=== PATIENT | female | born 1945 | race Caucasian/White ===

== ENCOUNTER 2020-07-23 12:52 | Outpatient (REF) | payer MEDICARE, SELFPAY ==
--- NOTE | 2020-07-23 | PFT_ITS ---
Forced vital capacity; FEV1, USH33-79, and MVV are all normal. Post bronchodilator therapy, there is no significant change. Total lung capacity and residual volume normal. Diffusion capacity normal. CONCLUSION: Normal pulmonary function test. MD ELY Ybarra/MODL / [id number]
== END 2020-07-23 12:53 | disposition home or self-care (01) ==
LOC: HO.RESP 12:52
PROVIDERS: PCP Internal Medicine; Visit Provider Hospitalist
DX: J45.909 Unspecified asthma, uncomplicated (principal)
CPT/HCPCS: 94060; 94727; 94729

== ENCOUNTER → 2021-06-26 14:09 | Outpatient (BNVA) | payer MEDICARE, SELFPAY | PROVIDERS: PCP Internal Medicine; Visit Provider Hospitalist | DX: J45.909 Unspecified asthma, uncomplicated (principal); J98.11 Atelectasis | CPT/HCPCS: 99212 ==

== ENCOUNTER → 2022-06-26 13:56 | Outpatient (BNVA) | payer MEDICARE, SELFPAY | PROVIDERS: PCP Internal Medicine; Visit Provider Hospitalist | DX: J45.909 Unspecified asthma, uncomplicated (principal); J98.11 Atelectasis | CPT/HCPCS: 99212 ==

== ENCOUNTER 2023-06-29 13:54 | Outpatient (AMB) | payer MEDICARE, SELFPAY ==
[2023-06-29 14:16] VITALS: BP 132/76; PULSE 92; O2SAT 97; BMI 26.9
--- NOTE | 2023-06-29 14:16 | A.OFFVIS_ITS ---
Intake Vital Signs 06/29/23 14:16 Height 5 ft 3 in Weight 152 lb BMI 26.9 BP 132/76 Blood Pressure Location Lt brachial Position Sitting Pulse 92 Pulse Source Pulse Oximeter Pulse Oximetry (%) 97 Oxygen Delivery Method Room Air Intake Visit Reasons: asthma Spring Inspector Required: No Allergies shellfish derived Allergy (Severe, Verified 06/29/23 14:19) Hives/Itching amoxicillin Allergy (Severe, Uncoded 06/29/23 14:19) Hives/Itching Percocet Allergy (Severe, Uncoded 06/29/23 14:19) Hives HPI HPI Comments History of Present Illness Details The patient is a 78-year-old woman with known history of allergic rhinitis, asthma. Overall she has been doing very well. Denies any significant shortness of breath. She continues use of Flovent. She does use 1 puff twice a day in appears to be effective. She has not had to use her rescue inhaler. In addition to that she does continue to use the singular 10 mg at nighttime. Denies any adverse effects from that. Unfortunately, she has been reluctant to get vaccinated for COVID-19. I did encourage her to do so specially with delta variant. I also recommended if she did come back positive at some point she can always call the office so we can set her up for monoclonal antibodies. But her best bet is to get vaccinated to avoid it altogether or decrease the severity of it. The patient will think about it for now. In regards of her PFTs she appears to have a reversible obstruction consistent with the asthma. In addition to that her last chest x-ray demonstrates some minimal atelectasis. Clinically she is doing well will hold off on any imaging studies. but if the patient develops any respiratory symptoms she is to call so we can have her undergo a chest x-ray. Otherwise will do 1 next year. 06/26/2022 the patient is here for a pulmonary follow-up visit. she continues to do well. She did tolerate going down to the 1 puff of the Flovent. Hoarseness got better. She is also using her allergy medicine. She denies any recent exacerbations or needing prednisone. She did not undergo her chest x- ray. Will plan to have her get an x-ray prior to the next visit. However, if she develops any worsening symptoms she is to get her chest x-ray earlier. Otherwise patient is without any other complaints. 06/29/2023 the patient is here for a pulmonary follow-up visit. The patient overall has been doing well for the last year. She continues on the Flovent inhaler. She did have 1 episode sometime in the winter where she was exposed to sick contacts and that up with a URI. She did increase her Flovent to the maximum dose and she did not need any prednisone or antibiotics. The patient improved in after that went back to her baseline. She will undergo a chest x- ray today. In addition to that on examination she was noted to be tachycardic. She does state that she has been tachycardic most of her life. Therefore we did request an EKG. It does demonstrate a sinus tachycardia with the rate of 110 beats per minute at rest. In addition to that she does have some conduction abnormalities. The patient may want to consider a cardiology referral further discussions with her primary care doctor. Otherwise respiratory exam is completely normal. [facility] Medical History (Updated 06/29/23 @ 23:17 by Viktor Moreno MD) Tachycardia Atelectasis Chronic allergic rhinitis Asthma Social History (Updated 06/29/23 @ 14:20 by MANISH Sargent) Patient Tobacco Use Status: Never used Tobacco Review of Systems Const Denies night sweats ENT Denies change in voice, Denies lip swelling, Denies mouth pain, Reports nasal congestion, Reports nasal discharge and Denies tongue swelling Card Denies chest pain and Reports palpitations Resp Reports cough GI Denies abdominal pain Musc Denies no additional complaints Neuro Denies Neuro-related abnormal movements Psych Denies no additional complaints Endo Reports palpitations Vadim/Lymph Denies easy bleeding and Denies lymphadenopathy Aller/Immun Denies lip swelling and Denies tongue swelling Physical Exam Vital Signs: Last Vital Signs Pulse 92 06/29/23 14:16 BP 132/76 06/29/23 14:16 Pulse Ox 97 06/29/23 14:16 Oxygen Delivery Method Room Air 06/29/23 14:16 BMI result Body Mass Index 26.9 Const General: alert Neck Neck: Yes normal visual inspection, Yes full ROM and Yes no lymphadenopathy Chest Chest palpation & inspection: normal inspection of the chest Resp Auscultation: clear to auscultation bilaterally, no rhonchi and no wheezes Cardio Rate: regular rate Rhythm: regular rhythm Heart sounds: S1 normal heart sound present and S2 normal heart sound present GI Palpation (GI): Soft to palpation and nontender Auscultation: normal bowel sounds Skin General skin exam: rashes and/or lesions noted Assessment & Plan Assessment & Plan (1) Asthma: Code(s): J45.909 - Unspecified asthma, uncomplicated Qualifiers: Asthma complication type: uncomplicated Asthma persistence: intermittent Asthma severity: mild Qualified Code(s): J45.20 - Mild intermittent asthma, uncomplicated (2) Chronic allergic rhinitis: Code(s): J30.9 - Allergic rhinitis, unspecified (3) Atelectasis: Code(s): J98.11 - Atelectasis (4) Tachycardia: Comment: [place] [id number] Electrocardiograph Report Signed Patient: Stephanie Glover MR#: [id number] : 1945 Acct:[id number] Age/Sex: 78 / F ADM Date: 06/29/23 Loc: [facility] Attending Dr: Viktor Moreno MD Ordering Physician: Viktor Moreno MD Date of Service: 06/29/23 Procedure(s): ECG 12 lead EKG Accession Number(s): [id number] cc: Viktor Moreno MD~ Test Reason : copd Blood Pressure : / mmHG Vent. Rate : 110 BPM Atrial Rate : 110 BPM P-R Int : 200 ms QRS Dur : 138 ms QT Int : 350 ms P-R-T Axes : 000 -62 087 degrees QTc Int : 473 ms Sinus tachycardia Left axis deviation Left bundle branch block Abnormal ECG No previous ECGs available Referred By: Viktor Moreno Electronically Signed By:KOLTON ONEAL Code(s): R00.0 - Tachycardia, unspecified Plan Flovent to 1-2 puff daily YAKOV as needed continue singular CXR requested Abnormal EKG, may benefit from a cardiology evaluation follow-up in 1 year Orders: Orders XR chest 2V Today J45.909 - Unspecified asthma, uncomplicated ECG 12 lead EKG Today J44.9 - Chronic obstructive pulmonary disease, unspecified, R00.0 - Tachycardia, unspecified Coding Level of Care Code Est Pt Level 4 (00349) Diagnoses Mild intermittent asthma without complication J45.20 Asthma complication type: uncomplicated Asthma persistence: intermittent Asthma severity: mild Chronic allergic rhinitis J30.9 Atelectasis J98.11 Tachycardia R00.0 Time Spent (min) 18
== END 2023-06-29 14:43 | disposition home or self-care (01) ==
PROVIDERS: PCP Internal Medicine; Visit Provider Hospitalist
DX: J45.20 Mild intermittent asthma, uncomplicated (principal); J30.9 Allergic rhinitis, unspecified; J98.11 Atelectasis; R00.0 Tachycardia, unspecified
CPT/HCPCS: 99214

== ENCOUNTER 2023-06-29 13:54 | Outpatient (REF) | payer MEDICARE, SELFPAY ==
--- NOTE | ~2023-06-29 | XR_ITS ---
EXAMINATION: XR CHEST CLINICAL INFORMATION: Asthma COMPARISON: 07/11/2020 TECHNIQUE: 2 views of the chest were obtained. FINDINGS: Slight enlargement of cardiac silhouette since 2019. Mediastinum and vascularity within normal limits. Mild left base atelectasis. Degenerative changes. XR/XR chest 2V IMPRESSION: Slight enlargement cardiac silhouette. Left base atelectasis.
--- NOTE | 2023-06-29 14:49 | ECG_ITS ---
Test Reason : copd Blood Pressure : / mmHG Vent. Rate : 110 BPM Atrial Rate : 110 BPM P-R Int : 200 ms QRS Dur : 138 ms QT Int : 350 ms P-R-T Axes : 000 -62 087 degrees QTc Int : 473 ms Sinus tachycardia Left axis deviation Left bundle branch block Abnormal ECG No previous ECGs available Referred By: Viktor Moreno Electronically Signed By:KOLTON ONEAL
== END 2023-06-29 13:55 | disposition home or self-care (01) ==
LOC: HO.XRAY 13:54
PROVIDERS: PCP Internal Medicine; Visit Provider Hospitalist
DX: J44.9 Chronic obstructive pulmonary disease, unspecified (principal); J45.20 Mild intermittent asthma, uncomplicated; J30.9 Allergic rhinitis, unspecified; J98.11 Atelectasis; R00.0 Tachycardia, unspecified; Z79.899 Other long term (current) drug therapy
CPT/HCPCS: 71046; 93005; 99212

== ENCOUNTER → 2023-08-10 12:46 | Outpatient (REF) | payer MEDICARE, SELFPAY ==
--- NOTE | 2023-08-10 12:48 | CA_ITS ---
Transthoracic Echocardiogram Patient (Last, First, Middle): Stephanie Glover, Gender: Female Date of : 1945 Age: 78 Procedure Date: 08/10/2023 Procedure Type: Transthoracic Echocardiogram Location: OP Height: 160.02 cm Weight: 70.31 kg BSA: 1.74 m2 Heart Rate: bpm BP: 150 / 90 mmHg Fast Food Cashier: TO Referring MD: Viktor Moreno MD Muck Miner: Irving Bailey MD Symptoms: I51.7 - Cardiomegaly Study Quality: Adequate w/ contrast ECG Rhythm: Sinus Conclusions: - 1. Moderate LV systolic dysfunction with LVEF of 35-40% 2. Mildly dilated left atrium 3. Moderate mitral calcification with normal cardiac valvular Dopplers 4. No gross pericardial effusion 5. Upper limits of normal ascending aortic size Findings Procedure Information Contrast agent, definity, is being given per protocol without apparent complications. Left Ventricle Normal left ventricular cavity size. There is normal left ventricular wall thickness. The left ventricular systolic function is moderately decreased. The visually estimated ejection fraction is between 35-40%. There is paradoxical septal motion consistent with a left bundle branch block. Diastolic function is indeterminate on the basis of available data. Right Ventricle Normal right ventricular cavity size and systolic function. Atria The left atrium is mildly dilated. There is lipomatous hypertrophy of the interatrial septum. There is no evidence of interatrial shunt. The right atrium is likely dilated. Aortic Valve The aortic valve was not well visualized. There is no aortic valve stenosis. There is no aortic valve regurgitation. Mitral Valve There is mild anterior and moderate posterior mitral leaflet thickening. There is moderate mitral annular calcification. There is trace mitral valve regurgitation. There is no mitral valve stenosis. Pulmonic Valve The pulmonic valve is likely normal. Tricuspid Valve Normal tricuspid valve structure. Tricuspid regurgitation envelope is inadequate for calculation of right ventricular systolic pressure. Normal right atrial pressure. Great Vessels The pulmonary artery was not well visualized. Venous The inferior vena cava is normal in size and collapses greater than 50% with inspiration. Pericardium/Pleural There is no evidence of pericardial effusion. Prior Study Comparison No prior study available for comparison. Measurements 2D Linear Measurements IVSd: 1.10 0.6-0.9/0.6-1.0 cm LVIDd: 4.80 3.9-5.3/4.2-5.9 cm LVIDd Index: 2.76 2.4-3.2/2.2-3.1 cm/m2 LVIDs: 3.70 2.0-3.6 cm LVPWd: 1.00 0.7-1.1 cm LA Diam: 3.40 2.7-3.8/3.0-4.0 cm LAIDs Index: 1.95 1.5-2.3 cm/m2 LV Mass: 306.42 67-162/88-224 g LV Mass Index: 176.10 43-95/49-115 g/m2 LVOT Diam: 2.00 3.0+(-)1.3 cm 2D Systolic Function EF 4C: 36.80 >55% EF 2C: 34.90 >55% EF BiP: 38.10 >55% Aortic Valve AoV Pk Simon: 1.06 AoV Mn Simon: 0.73 AoV VTI: 0.21 AoV Pk Grad: 4.00 Aov Mn Grad: 2.00 POORNIMA Cont.VTI: 2.01 LVOT LVOT Pk Simon: 0.74 LVOT Mn Simon: 0.48 LVOT VTI: 0.14 LVOT Pk Grad: 2.00 LVOT Mn Grad: 1.00 LVOT Diam: 2.00 LVOT Area: 3.14 Right Ventricle TAPSE (mm): 22.10 TVS' Simon: 10.10 Tricuspid Valve RA Press: 3.00 Great Vessels Aorta Sinus of Valsalva: 3.60 2.0-3.5 cm Ao Asc: 3.50 2.1-3.4 cm Updated in Other Vendor System with Status of Final Irving Bailey MD electronically signed on 08/10/2023 4:42:26 PM with status of Final
== END ==
LOC: HO.CARD 12:46
PROVIDERS: PCP Internal Medicine; Visit Provider Hospitalist
DX: I51.7 Cardiomegaly (principal); R00.0 Tachycardia, unspecified
CPT/HCPCS: 93306; Q9957

== ENCOUNTER → 2023-08-10 12:48 | Outpatient (BNV) | payer MEDICARE, SELFPAY | PROVIDERS: PCP Internal Medicine; Visit Provider Internal Medicine Cardiovascular Disease | DX: I34.81 Nonrheumatic mitral (valve) annulus calcification (principal) | CPT/HCPCS: 93306 ==

== ENCOUNTER 2023-09-03 13:10 | Outpatient (AMB) | payer MEDICARE, SELFPAY ==
[2023-09-03 13:13] VITALS: BP 144/82; PULSE 98; BMI 27.3
--- NOTE | 2023-09-03 13:13 | A.OFFVIS_ITS ---
Intake Vital Signs 09/03/23 13:13 Height 5 ft 3 in Weight 154 lb 5.177 oz BMI 27.3 BP 144/82 H Blood Pressure Location Lt brachial Position Sitting Pulse 98 Intake Visit Reasons: New after echo Intake Note: New patient after echo with ekg c/o some sob Geothermal System Installer Required: No Habilitation Specialist: Habilitation Specialist Present Accompanied by: Spouse Allergies shellfish derived Allergy (Severe, Verified 06/29/23 14:19) Hives/Itching Srnzkma-BKE-HsE Reductase Inhibitor Allergy (Severe, Verified 09/03/23 14:14) Nausea amoxicillin Allergy (Severe, Uncoded 06/29/23 14:19) Hives/Itching Percocet Allergy (Severe, Uncoded 06/29/23 14:19) Hives Medication List - Last Reconciled 09/03/23 by Irving Bailey MD albuterol sulfate 90 mcg/actuation (Ventolin HFA) 2 puffs inhalation Q6H PRN 30 days bimatoprost 0.01% (Lumigan) drps ophthalmic (eye) dorzolamide 2% drps ophthalmic (eye) ONCE estradiol mcg vaginal Flovent HFA 110 mcg/actuation (fluticasone propionate) 1 puff PO BID NS montelukast (Singulair) 10 mg PO BEDTIME 30 days HPI HPI Comments History of Present Illness Details Thank you for referring Stephanie in cardiology consultation today for abnormal echocardiographic finding. Patient is a pleasant 78-year-old woman with prior history of asthma otherwise no significant prior cardiac history. Patient says she has been stable and recently during a pulmonary visit was noted to have fast heart rate and subsequent EKG showed sinus tachycardia with left bundle-branch block. Chest x-ray showed cardiomegaly which led to the echocardiogram which shows moderate LV systolic dysfunction with LVEF of 35-40%. Patient says she is very active and can walk a few miles without any restriction. Denies any exertional shortness of breath or chest discomfort. She denies any other heart failure symptoms of orthopnea, PND, abdominal distension, leg edema. She denies any prolonged palpitations irregular heartbeat. She has been recording a blood pressure at home and they are slightly on the elevated side and heart rates always in the 80s and 90s. She has never any with prior cardiac events. She has history of hyperlipidemia and was on statin therapy at 1 point time although she had developed liver enzyme elevation this was stopped. She does have family history of premature coronary artery disease in her dad [facility] Medical History Cardiomyopathy Tachycardia Atelectasis Chronic allergic rhinitis Asthma Surgical History Hx of knee surgery Family History Father CAD (coronary artery disease) Mother Stroke Social History Patient Tobacco Use Status: Never used Tobacco Review of Systems Const Denies chills, Denies fatigue, Denies fever(s), Denies frequent falls, Denies weakness, Denies weight gain and Denies weight loss ENT Denies dizziness Card Denies chest pain, Denies leg edema, Denies lightheadedness, Denies palpitations, Denies dyspnea, Denies dyspnea on exertion, Denies orthopnea and Denies other (loss of consciousness) Resp Denies cough, Denies dyspnea and Denies dyspnea on exertion GI Denies hematochezia and Denies change in stool character Musc Denies abnormal gait, Denies muscle weakness, Denies numbness, Denies radiating pain into limb and Denies tingling Neuro Denies abnormal gait, Denies dizziness, Denies frequent falls, Denies numbness, Denies tingling and Denies weakness Endo Denies fatigue and Denies palpitations Physical Exam Vital Signs: Last Vital Signs Pulse 98 09/03/23 13:13 BP 144/82 H 09/03/23 13:13 BMI result Body Mass Index 27.3 Const General: cooperative, comfortable, no acute distress, alert, awake and Physically active Nutritional Appearance: overweight Orientation/consciousness: patient oriented x3 Limitations: no limitations HEENT Head: Yes normocephalic and Yes atraumatic Neck Neck: Yes trachea midline, Yes supple and Yes no JVD Resp Effort & Inspection: normal respiratory effort Auscultation: clear to auscultation bilaterally Cardio Jugular venous distension: no JVD Palpation: normal PMI Rate: regular rate Rhythm: regular rhythm Heart sounds: S1 normal heart sound present, S2 normal heart sound present, no click, no gallops, no murmurs and no rubs GI Auscultation: normal bowel sounds Skin General skin exam: no rashes or lesions noted Neuro General: patient oriented x3 and no focal motor deficits Extrem General: Yes no clubbing, cyanosis or edema Psych Appearance: grossly normal Office Procedures EKG Details: EKG today shows normal sinus rhythm with possible left atrial enlargement with left axis deviation with nonspecific intraventricular conduction block more suggestive towards left bundle-branch block [id number], Complete Assessment & Plan Assessment & Plan (1) Cardiomyopathy: Code(s): I42.9 - Cardiomyopathy, unspecified Plan: Patient with new diagnosis of cardiomyopathy with moderate LV systolic dysfunction of unclear etiology. She is completely asymptomatic from this perspective with no signs of heart failure and NYHA class I. We discussed about potential etiology and most importantly ID that needs to be ruled out ischemic heart disease given her risk factors. I would suggest her to undergo a vasodilating myocardial perfusion imaging to evaluate for myocardial ischemia and/or prior scar. This will then will require further workup if present. If she has no obvious ischemic heart disease than likelihood of left bundle-branch block related cardiomyopathy is possible. We discussed about management of asymptomatic LV systolic dysfunction and given that she has no signs or symptoms of heart failure, will proceed with neurohormonal modulation. Will start her on Coreg 3.125 mg b.i.d. as well as valsartan 40 mg b.i.d.. Signs and symptoms of heart failure were discussed in details. She understands agrees. Will obtain lab work today and in 2 weeks time. Advised to monitor blood pressure at home and maintain a log and drop it off to our office and will continue to maximize therapy as tolerated. Follow up in the office in 4 weeks time. Thank you for allowing me to partake in her care Orders: Orders Basic Metabolic Panel Today I42.9 - Cardiomyopathy, unspecified Basic Metabolic Panel Today I42.9 - Cardiomyopathy, unspecified CA lexiscan stress w mariusz Today I42.9 - Cardiomyopathy, unspecified Complete Blood Count no Diff Today I42.9 - Cardiomyopathy, unspecified TSH reflex Free T4 Today I42.9 - Cardiomyopathy, unspecified Medications: New valsartan 40 mg PO BID 60 tabs 2RF carvedilol (Coreg) must administer with a meal/food 3.125 mg PO BID 60 tabs 1RF Coding Level of Care Code New Pt Level 4 (24305) Diagnoses Cardiomyopathy I42.9 CPT Codes EKG - CPT: 87032-[id number], Complete ([id number])
== END 2023-09-03 13:57 | disposition home or self-care (01) ==
PROVIDERS: PCP Internal Medicine; Visit Provider Internal Medicine Cardiovascular Disease
DX: I42.9 Cardiomyopathy, unspecified (principal)
CPT/HCPCS: 93010; 99204

== ENCOUNTER 2023-09-03 13:10 | Outpatient (REF) | payer MEDICARE, SELFPAY ==
[2023-09-03 14:10] LABS: Hematocrit 42.1 % (37.0-47.0); Hemoglobin 13.9 g/dl (12.0-16.0); Mean Corpuscular Hemoglobin 32.3 pg (27.0-33.0); Mean Corpuscular Volume 97.7 fL (80.0-98.0); Mean Platelet Volume 10.8 fL (9.4-12.3); Platelet Count 211 X10*3/uL (160-400); Red Blood Count 4.31 X10*6/uL (4.20-5.50); Red Cell Distribution Width 12.9 % (11.0-16.0); White Blood Count 8.2 X10*3/uL (4.8-10.8)
[2023-09-03 15:23] LABS: Anion Gap 13 (12-20); Blood Urea Nitrogen 15 mg/dL (9-16); Calcium 9.7 mg/dL (8.4-10.2); Carbon Dioxide 27 mmol/L (22-29); Chloride 106 mmol/L (96-108); Estimated Glomerular Filt Rate > 60; Glucose Random 132 mg/dL (60-115); Potassium 4.5 mmol/L (3.3-5.1); Sodium 141 mmol/L (135-145)
[2023-09-03 15:27] LABS: TSH reflex Free T4 0.61 uIU/mL (0.32-4.0)
== END 2023-09-03 13:11 | disposition home or self-care (01) ==
LOC: HO.LAB 13:10
PROVIDERS: PCP Internal Medicine; Visit Provider Internal Medicine Cardiovascular Disease
DX: I42.9 Cardiomyopathy, unspecified (principal); Z79.899 Other long term (current) drug therapy
CPT/HCPCS: 36415; 80048; 84443; 85027; 93005; 99202

== ENCOUNTER 2023-09-22 11:22 | Outpatient (AMB) | payer MEDICARE, SELFPAY ==
--- NOTE | 2023-09-22 11:24 | A.OFFVIS_ITS ---
Intake Vital Signs 09/22/23 11:25 Height 5 ft 3 in Weight 152 lb 1.903 oz BMI 26.9 BP 142/78 H Blood Pressure Location Lt brachial Position Sitting Pulse 80 Intake Visit Reasons: 4 wk fu Intake Note: 4 week follow-up for blood check feeling good Counselor Manager Required: No Windows Desktop Support: Windows Desktop Support Present Accompanied by: Spouse Allergies shellfish derived Allergy (Severe, Verified 06/29/23 14:19) Hives/Itching Jndmfaw-QZW-KfS Reductase Inhibitor Allergy (Severe, Verified 09/03/23 14:14) Nausea amoxicillin Allergy (Severe, Uncoded 06/29/23 14:19) Hives/Itching Percocet Allergy (Severe, Uncoded 06/29/23 14:19) Hives Medication List - Last Reconciled 09/22/23 by Irving Bailey MD bimatoprost 0.01% (Lumigan) drps ophthalmic (eye) carvedilol (Coreg) 3.125 mg PO BID dorzolamide 2% drps ophthalmic (eye) ONCE estradiol mcg vaginal Flovent HFA 110 mcg/actuation (fluticasone propionate) 1 puff PO BID NS montelukast (Singulair) 10 mg PO BEDTIME 30 days valsartan 40 mg PO BID Ventolin HFA 90 mcg/actuation (albuterol sulfate) 2 puffs PO Q6H PRN NS HPI HPI Comments History of Present Illness Details Stephanie comes for follow-up. She says she feels well. She says since starting the medication she has has less shortness of breath. She denies any orthopnea, PND, leg edema. Denies any prolonged palpitation irregular heartbeat. No lightheadedness, syncope. No exertional chest pain. Stress testing is pending. Blood pressures are well controlled at home with some high blood pressure readings PFSH Medical History Cardiomyopathy Tachycardia Atelectasis Chronic allergic rhinitis Asthma Surgical History Hx of knee surgery Family History Father CAD (coronary artery disease) Mother Stroke Social History Patient Tobacco Use Status: Never used Tobacco Review of Systems Const Denies chills, Denies fatigue, Denies fever(s), Denies frequent falls, Denies weakness, Denies weight gain and Denies weight loss ENT Denies dizziness Card Denies chest pain, Denies leg edema, Denies lightheadedness, Denies palpitations, Denies dyspnea, Denies dyspnea on exertion, Denies orthopnea and Denies other (loss of consciousness) Resp Denies cough, Denies dyspnea and Denies dyspnea on exertion GI Denies hematochezia and Denies change in stool character Musc Denies abnormal gait, Denies muscle weakness, Denies numbness, Denies radiating pain into limb and Denies tingling Neuro Denies abnormal gait, Denies dizziness, Denies frequent falls, Denies numbness, Denies tingling and Denies weakness Endo Denies fatigue and Denies palpitations Physical Exam Vital Signs: Last Vital Signs Pulse 80 09/22/23 11:25 BP 142/78 H 09/22/23 11:25 BMI result Body Mass Index 26.9 Const General: cooperative, comfortable, no acute distress, alert, awake and Physically active Nutritional Appearance: overweight Orientation/consciousness: patient oriented x3 Limitations: no limitations Neck Neck: Yes trachea midline, Yes supple and Yes no JVD Resp Effort & Inspection: normal respiratory effort Auscultation: clear to auscultation bilaterally Cardio Jugular venous distension: no JVD Palpation: normal PMI Rate: regular rate Rhythm: regular rhythm Heart sounds: S1 normal heart sound present, S2 normal heart sound present, no click, no gallops, no murmurs and no rubs GI Auscultation: normal bowel sounds Skin General skin exam: no rashes or lesions noted Neuro General: patient oriented x3 and no focal motor deficits Extrem General: Yes no clubbing, cyanosis or edema Psych Appearance: grossly normal Assessment & Plan Assessment & Plan (1) Cardiomyopathy: Code(s): I42.9 - Cardiomyopathy, unspecified Plan: Patient with moderate LV systolic dysfunction of unclear etiology question ischemic. Myocardial perfusion imaging is pending. Continue to follow through with it. Possibly left bundle-branch block related. Advised to further uptitrate neurohormonal modulation. Will increase carvedilol to 6.25 mg b.i.d. and valsartan to 80 mg b.i.d.. Advised to continue to monitor blood pressure at home maintain a log. Advised to call me with any new symptoms. Heart failure symptoms were discussed. Need for neurohormonal modulation was discussed. Her symptoms are marginally improved and this could be due to improving LV systolic function. Will follow-up limited echocardiogram in 2 months time. Will follow up in the clinic in 4 weeks time to further uptitrate medications and follow clinically. Thank you for allowing me to partake in the care Medications: New carvedilol (Coreg) must administer with a meal/food 6.25 mg PO BID 60 tabs 2RF valsartan 80 mg PO BID 60 tabs 1RF Discontinued valsartan Discontinued Reason: Doctor's Order 40 mg PO BID 60 tabs 2RF carvedilol (Coreg) must administer with a meal/food Discontinued Reason: Doctor's Order 3.125 mg PO BID 60 tabs 1RF Coding Level of Care Code Est Pt Level 4 (56061) Diagnoses Cardiomyopathy I42.9
[2023-09-22 11:25] VITALS: BP 142/78; PULSE 80; BMI 26.9
== END 2023-09-22 11:55 | disposition home or self-care (01) ==
PROVIDERS: PCP Internal Medicine; Visit Provider Internal Medicine Cardiovascular Disease
DX: I42.9 Cardiomyopathy, unspecified (principal)
CPT/HCPCS: 99214

== ENCOUNTER → 2023-09-22 11:22 | Outpatient (BNVA) | payer MEDICARE, SELFPAY | PROVIDERS: PCP Internal Medicine; Visit Provider Internal Medicine Cardiovascular Disease | DX: I42.9 Cardiomyopathy, unspecified (principal) | CPT/HCPCS: 99212 ==

== ENCOUNTER → 2023-10-15 07:43 | Outpatient (REF) | payer MEDICARE, SELFPAY ==
--- NOTE | 2023-10-15 07:46 | CA_ITS ---
Acquisition Time: 2023-10-15 08:28:01 Total Exercise Time: 00:02:00 Test Indications: I42.9 - Cardiomyopathy, unspeci Medications: Protocol: LEXISCAN Max HR: 102 BPM 71% of Pred: 143 BPM Max BP: 172/082 mmHG Max Work Load: 1.0 METS Pharmacological stress test with Lexiscan injection, while sitting, without anginal symptoms, without arrythmia, with normotensive response to injection, with nondiagnostic EKG for ischemia. Nuclear images pending. Test reviewed with Dr Casillas. Referred By: Irving Bailey Overread By: ISAAK BUSTAMANTE
== END ==
LOC: HO.CARD 07:43
PROVIDERS: PCP Internal Medicine; Visit Provider Internal Medicine Cardiovascular Disease
DX: I42.9 Cardiomyopathy, unspecified (principal)
CPT/HCPCS: 78452; 93017; A9500; J0280; J2785

== ENCOUNTER → 2023-10-15 07:46 | Outpatient (BNV) | payer MEDICARE, SELFPAY | PROVIDERS: PCP Internal Medicine; Visit Provider Nurse Practitioner Family | DX: I25.10 Atherosclerotic heart disease of native coronary artery without angina pectoris (principal) | CPT/HCPCS: 78452; 93016; 93018 ==

== ENCOUNTER 2023-10-25 13:02 | Outpatient (AMB) | payer MEDICARE, SELFPAY ==
[2023-10-25 13:29] VITALS: BP 140/82; PULSE 81; BMI 26.4
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
== END 2023-10-25 14:14 | disposition home or self-care (01) ==
PROVIDERS: PCP Internal Medicine; Visit Provider Nurse Practitioner Family
DX: R94.39 Abnormal result of other cardiovascular function study (principal); I42.9 Cardiomyopathy, unspecified; I44.7 Left bundle-branch block, unspecified; Z01.818 Encounter for other preprocedural examination
CPT/HCPCS: 99214

== ENCOUNTER → 2023-10-25 13:02 | Outpatient (BNVA) | payer MEDICARE, SELFPAY | PROVIDERS: PCP Internal Medicine; Visit Provider Nurse Practitioner Family | DX: Z01.810 Encounter for preprocedural cardiovascular examination (principal); R94.39 Abnormal result of other cardiovascular function study; I42.9 Cardiomyopathy, unspecified; I44.7 Left bundle-branch block, unspecified | CPT/HCPCS: 99212 ==

== ENCOUNTER 2023-10-26 15:57 | Outpatient (REF) | payer MEDICARE, SELFPAY ==
[2023-10-26 16:09] LABS: MANUAL DIFF FLAG NO
[2023-10-26 16:14] LABS: Basophils Absolute Auto 0.1 X10*3/uL (0.0-0.2); Eosinophils Absolute Auto 0.2 X10*3/uL (0.0-0.4); Eosinophils Percent Auto 2.4 % (0-4); Hematocrit 44.8 % (37.0-47.0); Hemoglobin 14.9 g/dl (12.0-16.0); Imm Gran Abs Auto 0.01 X10*3/uL (0.00-0.03); Imm Gran Pct Auto 0.2 % (0.0-0.4); Lymphocytes Absolute Auto 1.4 X10*3/uL (1.2-4.9); Lymphocytes Percent Auto 22.8 % (20-40); Mean Corpuscular HGB Conc 33.3 g/dl (31.0-35.0); Mean Corpuscular Volume 96.3 fL (80.0-98.0); Mean Platelet Volume 10.7 fL (9.4-12.3); Monocytes Absolute Auto 0.6 X10*3/uL (0.1-1.2); Monocytes Percent Auto 9.3 % (2-11); Neutrophils Percent Auto 64.3 % (45-73); Platelet Count 233 X10*3/uL (160-400); Red Blood Count 4.65 X10*6/uL (4.20-5.50); Red Cell Distribution Width 13.1 % (11.0-16.0); White Blood Count 6.3 X10*3/uL (4.8-10.8)
[2023-10-26 16:19] LABS: INTERNATIONAL NORM RATIO 0.9 (0.9-1.1); Prothrombin Time 11.5 SEC (11.1-13.3)
[2023-10-26 16:39] LABS: Anion Gap 11 (12-20); Blood Urea Nitrogen 19 mg/dL (9-16); Carbon Dioxide 25 mmol/L (22-29); Chloride 108 mmol/L (96-108); Estimated Glomerular Filt Rate 57; Glucose Random 130 mg/dL (60-115); Potassium 4.1 mmol/L (3.3-5.1); Sodium 140 mmol/L (135-145)
== END 2023-10-26 15:58 | disposition home or self-care (01) ==
LOC: HO.LAB 15:57
PROVIDERS: PCP Internal Medicine; Visit Provider Nurse Practitioner Family
DX: R94.39 Abnormal result of other cardiovascular function study (principal)
CPT/HCPCS: 36415; 80048; 85025; 85610

== ENCOUNTER → 2023-11-04 23:59 | Outpatient (BNV) | payer MEDICARE, SELFPAY | PROVIDERS: PCP Internal Medicine; Visit Provider Internal Medicine Cardiovascular Disease | DX: I42.9 Cardiomyopathy, unspecified (principal); I50.20 Unspecified systolic (congestive) heart failure; R93.1 Abnormal findings on diagnostic imaging of heart and coronary circulation | CPT/HCPCS: 93460; 99152 ==

== ENCOUNTER 2023-11-18 13:39 | Outpatient (AMB) | payer MEDICARE, SELFPAY ==
[2023-11-18 14:14] VITALS: BP 160/80; PULSE 86; BMI 26.1
--- NOTE | 2023-11-18 14:14 | MHC.OFFVIS ---
Intake Vital Signs 11/18/23 14:14 Height 5 ft 3 in Weight 147 lb 4.301 oz BMI 26.1 BP 160/80 H Blood Pressure Location Lt brachial Position Sitting Pulse 86 Pulse Source Pulse Oximeter Intake Visit Reasons: 2 s/p cath Live Ammunition Inspector Required: No Allergies shellfish derived Allergy (Severe, Verified 11/18/23 14:17) Hives/Itching Xprthds-CON-[id number] Reductase Inhibitor Allergy (Severe, Verified 11/18/23 14:17) Nausea amoxicillin Allergy (Severe, Uncoded 06/29/23 14:19) Hives/Itching Percocet Allergy (Severe, Uncoded 06/29/23 14:19) Hives Medication List - Last Reconciled 11/18/23 by Santa Contreras, CELIA-C aspirin 81 mg PO DAILY bimatoprost 0.01% (Lumigan) drps ophthalmic (eye) carvedilol 12.5 mg PO BID dorzolamide 2% drps ophthalmic (eye) ONCE estradiol mcg vaginal Flovent HFA 110 mcg/actuation (fluticasone propionate) 1 puff PO BID NS montelukast (Singulair) 10 mg PO BEDTIME 30 days valsartan 80 mg PO BID Ventolin HFA 90 mcg/actuation (albuterol sulfate) 2 puffs PO Q6H PRN NS HPI 2 s/p cath HPI Details Stephanie is a 78-year-old female with past medical history of asthma, left bundle branch block, newer finding of cardiomyopathy who recently had a cardiac catheterization and now presents for follow-up. Today she reports that she has been doing well since her last visit earlier this month. Her cardiac catheterization site is feeling good. No chest discomfort at rest or with activity. No shortness of breath, palpitations, presyncope, syncope, PND, orthopnea or edema. She does report fatigue and states she is not sleeping well. Her has a diagnosis of esophageal cancer and is undergoing treatment. [facility] Medical History Cardiomyopathy Tachycardia Atelectasis Chronic allergic rhinitis Asthma Surgical History Hx of knee surgery Family History Father CAD (coronary artery disease) Mother Stroke Social History Patient Tobacco Use Status: Never used Tobacco Review of Systems Const All systems reviewed & are unremarkable except as noted in HPI and below Reports fatigue ENT Denies dizziness Card Denies chest pain, Denies chest pain at rest, Denies chest pain with activity, Denies rapid heart rate, Denies pedal edema, Denies edema, Denies leg edema, Denies lightheadedness, Denies palpitations, Denies dyspnea, Denies dyspnea on exertion and Denies orthopnea Resp Denies cough, Denies dyspnea and Denies dyspnea on exertion GI Denies hematochezia and Denies change in stool character Musc Denies abnormal gait, Denies limited range of motion, Denies muscle cramps, Denies muscle weakness, Denies numbness, Denies radiating pain into limb, Denies stiffness and Denies tingling Neuro Denies abnormal gait, Denies dizziness, Denies numbness and Denies tingling Endo Reports fatigue and Denies palpitations Physical Exam Vital Signs: Last Vital Signs Pulse 86 11/18/23 14:14 BP 160/80 H 11/18/23 14:14 BMI result Body Mass Index 26.1 Const General: cooperative, healthy appearing, comfortable and no acute distress Orientation/consciousness: patient oriented x3 Neck Neck: Yes normal visual inspection and Yes no JVD Resp Effort & Inspection: normal respiratory effort Auscultation: clear to auscultation bilaterally, no crackles, no rales, no rhonchi and no wheezes Cardio Jugular venous distension: no JVD Rate: regular rate Rhythm: regular rhythm Heart sounds: S1 normal heart sound present, S2 normal heart sound present, no murmurs and no rubs Neuro General: patient oriented x3 Extrem Other: right radial cath site well healed, easily palp radial pulse, right hand assessment normal General: Yes normal to inspection and No no pedal edema Psych Appearance: grossly normal Mental Status: mental status grossly normal Speech and movement: Normal speech and movement present Assessment & Plan Assessment & Plan (1) Cardiomyopathy: Code(s): I42.9 - Cardiomyopathy, unspecified Plan: Newer finding of cardiomyopathy. Echocardiogram done 08/10/2023 showing EF 35-40%, mildly dilated left atrium, moderate mitral calcification, normal valves Dopplers. She does have findings of a left bundle branch block on EKG which can contribute to cardiomyopathy. She underwent a pharmacological nuclear stress completed on 10/20/2023 showing ischemia in the mid to distal LAD, EF 33%, t.i.d. present. Cardiac catheterization done in 11/04/2023 showing only minimal luminal irregularities in the LAD. Her cardiomyopathy is nonischemic. Today she reports feeling well. Right radial catheterization site is healing well. She has no clinical signs of heart failure on examination. Continue carvedilol and valsartan for neurohormonal modulation. Labs done 10/26/2023 showing potassium 4.0, creatinine 0.95. Blood pressure is elevated today. Will change her valsartan over to Entresto. Will add low-dose Aldactone. Orders placed for lab work to be done in 2 weeks. Further med titration as able. Will check limited echo prior to her next visit. Signs and symptoms of heart failure reviewed with her. Cardiology follow-up in 2-3 months, sooner if needed. (2) S/P cardiac cath: Comment: 11/04/2023, left main, left circumflex, RCA normal, lad minimal luminal irregularities Code(s): Z98.890 - Other specified postprocedural states Plan: Right radial catheterization site well healed (3) Abnormal nuclear stress test: Code(s): R94.39 - Abnormal result of other cardiovascular function study Plan: False abnormal (4) Left bundle branch block: Code(s): I44.7 - Left bundle-branch block, unspecified Plan: Left bundle branch block seen on EKGs. Unknown chronicity. Her cardiomyopathy may be related to the left bundle branch block. Plan Time spent on chart review, documentation, interview and assessment Orders: Orders CA echo limited 3 Weeks I42.9 - Cardiomyopathy, unspecified, I44.7 - Left bundle-branch block, unspecified Medications: New sacubitril-valsartan 49-51 mg (Entresto) Replaces Valsartan 1 tab PO BID 60 tabs 5RF spironolactone (Aldactone) Start taking 1 week after start of Entresto Take 1/2 tablet daily 12.5 mg (1/2 x 25 mg) PO DAILY 30 days 15 tabs 3RF Discontinued valsartan Discontinued Reason: Doctor's Order 80 mg PO BID 60 tabs 1RF Coding Level of Care Code Est Pt Level 4 (79306) Diagnoses Cardiomyopathy I42.9 S/P cardiac cath Z98.890 Abnormal nuclear stress test R94.39 Left bundle branch block I44.7 Time Spent (min) 28
== END 2023-11-18 14:51 | disposition home or self-care (01) ==
PROVIDERS: PCP Internal Medicine; Visit Provider Nurse Practitioner Family
DX: I42.9 Cardiomyopathy, unspecified (principal); Z98.890 Other specified postprocedural states; R94.39 Abnormal result of other cardiovascular function study; I44.7 Left bundle-branch block, unspecified
CPT/HCPCS: 99214

== ENCOUNTER → 2023-11-18 13:39 | Outpatient (BNVA) | payer MEDICARE, SELFPAY | PROVIDERS: PCP Internal Medicine; Visit Provider Nurse Practitioner Family | DX: I42.9 Cardiomyopathy, unspecified (principal); I44.7 Left bundle-branch block, unspecified; R94.39 Abnormal result of other cardiovascular function study; Z79.899 Other long term (current) drug therapy; Z98.890 Other specified postprocedural states | CPT/HCPCS: 99212 ==

== ENCOUNTER 2023-12-10 12:57 | Outpatient (REF) | payer MEDICARE, SELFPAY ==
[2023-12-10 14:26] LABS: Anion Gap 12 (12-20); Blood Urea Nitrogen 13 mg/dL (9-16); Carbon Dioxide 26 mmol/L (22-29); Chloride 107 mmol/L (96-108); Estimated Glomerular Filt Rate > 60; Glucose Random 101 mg/dL (60-115); Potassium 4.4 mmol/L (3.3-5.1); Sodium 141 mmol/L (135-145)
== END 2023-12-10 12:58 | disposition home or self-care (01) ==
LOC: HO.LAB 12:57
PROVIDERS: PCP Internal Medicine; Visit Provider Internal Medicine Cardiovascular Disease
DX: I42.9 Cardiomyopathy, unspecified (principal)
CPT/HCPCS: 36415; 80048

== ENCOUNTER → 2023-12-13 14:46 | Outpatient (REF) | payer MEDICARE, SELFPAY ==
--- NOTE | 2023-12-13 14:52 | CA_ITS ---
Transthoracic Echocardiogram Patient (Last, First, Middle): Stephanie Glover, Gender: Female Date of : 1945 Age: 78 Procedure Date: 12/13/2023 Procedure Type: Transthoracic Echocardiogram Location: OP Height: 160.02 cm Weight: 66.68 kg BSA: 1.70 m2 Heart Rate: 64 bpm BP: 138 / 78 mmHg Office Bookkeeper: SB Referring MD: Santa Contreras ENVIRONMENTAL PROGRAMS MANAGER-C Symptoms: I42.9 - Cardiomyopathy, unspecified Study Quality: Adequate/limited ordered to eval LVEF ECG Rhythm: Sinus Conclusions: - The left ventricular systolic function is mildly decreased. The calculated ejection fraction is 46% by biplane method. Findings Left Ventricle Normal left ventricular cavity size. The left ventricular systolic function is mildly decreased. The calculated ejection fraction is 46% by biplane method. There is moderate septal asymmetric hypertrophy. LV peak GLS 12.4%. Venous The inferior vena cava is normal in size and collapses greater than 50% with inspiration. Prior Study Comparison Changes noted compared to prior study dated: 08/10/2023. Improved LVEF. Measurements 2D Linear Measurements IVSd: 1.36 0.6-0.9/0.6-1.0 cm LVIDd: 4.40 3.9-5.3/4.2-5.9 cm LVIDd Index: 2.59 2.4-3.2/2.2-3.1 cm/m2 LVIDs: 3.21 2.0-3.6 cm LVPWd: 0.81 0.7-1.1 cm LV Mass: 206.62 67-162/88-224 g LV Mass Index: 121.54 43-95/49-115 g/m2 LVOT Diam: 2.10 3.0+(-)1.3 cm 2D Systolic Function EF 4C: 48.40 >55% EF 2C: 47.20 >55% EF BiP: 46.40 >55% LVOT LVOT Pk Simon: 0.99 LVOT Mn Simon: 0.75 LVOT VTI: 0.17 LVOT Pk Grad: 4.00 LVOT Mn Grad: 2.00 LVOT Diam: 2.10 LVOT Area: 3.46 Tricuspid Valve RA Press: 3.00 Updated in Other Vendor System with Status of Final Sixto Casillas MD electronically signed on 12/15/2023 6:09:41 AM with status of Final
== END ==
LOC: HO.CARD 14:46
PROVIDERS: PCP Internal Medicine; Visit Provider Nurse Practitioner Family
DX: I42.9 Cardiomyopathy, unspecified (principal); I44.7 Left bundle-branch block, unspecified
CPT/HCPCS: 93308; 93356

== ENCOUNTER → 2023-12-13 14:52 | Outpatient (BNV) | payer MEDICARE, SELFPAY | PROVIDERS: PCP Internal Medicine; Visit Provider Internal Medicine | DX: I42.9 Cardiomyopathy, unspecified (principal) | CPT/HCPCS: 93308 ==

== ENCOUNTER → 2023-12-17 09:57 | Outpatient (BNVA) | payer MEDICARE, SELFPAY | PROVIDERS: PCP Internal Medicine; Visit Provider Nurse Practitioner Family ==

== ENCOUNTER 2024-02-14 12:17 | Outpatient (AMB) | payer MEDICARE, SELFPAY ==
[2024-02-14 12:28] VITALS: BP 126/74; PULSE 74; BMI 57.0
--- NOTE | 2024-02-14 12:28 | A.OFFVIS_ITS ---
Vital Signs 02/14/24 12:28 Height 5 ft 3 in Weight 321 lb 13.998 oz BMI 57.0 BP 126/74 Blood Pressure Location Lt brachial Position Sitting Pulse 74 Intake Visit Reasons: 3 month fu Intake Note: 3 month follow-up feeling ok Meter Record Clerk Required: No Allergies shellfish derived Allergy (Severe, Verified 11/18/23 14:17) Hives/Itching [id number]-[id number] Reductase Inhibitor Allergy (Severe, Verified 11/18/23 14:17) Nausea amoxicillin Allergy (Severe, Uncoded 06/29/23 14:19) Hives/Itching Percocet Allergy (Severe, Uncoded 06/29/23 14:19) Hives Medication List - Last Reconciled 02/14/24 by Irving Bailey MD aspirin 81 mg PO DAILY bimatoprost 0.01% (Lumigan) drps ophthalmic (eye) carvedilol 12.5 mg PO BID dorzolamide 2% drps ophthalmic (eye) ONCE estradiol mcg vaginal fluticasone furoate 100 mcg/actuation (Arnuity Ellipta) 1 inh inhalation DAILY fluticasone propionate 110 mcg/actuation 1 puff PO BID montelukast (Singulair) 10 mg PO BEDTIME 30 days valsartan 80 mg PO BID 90 days Ventolin HFA 90 mcg/actuation (albuterol sulfate) 2 puffs PO Q6H PRN NS HPI Comments Details: Stephanie comes for follow-up. Patient has no new symptoms. 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 Consistent with nonischemic cardiomyopathy. Recent limited echocardiogram shows improvement in LV ejection fraction to 46%. She has not started taking her spironolactone therapy for unclear reason, because she thought she was taking her diuretic. She denies any palpitations, lightheadedness, syncope. Denies any heart failure symptoms. [facility] Medical History Cardiomyopathy Tachycardia Atelectasis Chronic allergic rhinitis Asthma Surgical History Hx of knee surgery Family History Father CAD (coronary artery disease) Mother Stroke Social History Patient Tobacco Use Status: Never used Tobacco Review of Systems Const Denies chills, Denies fatigue, Denies fever(s), Denies frequent falls, Denies we akness, Denies weight gain and Denies weight loss ENT Denies dizziness Card Denies chest pain, Denies leg edema, Denies lightheadedness, Denies palpit ations, Denies dyspnea, Denies dyspnea on exertion, Denies orthopnea and Denies other (loss of consciousness) Resp Denies cough, Denies dyspnea and Denies dyspnea on exertion GI Denies hematochezia and Denies change in stool character Musc Denies abnormal gait, Denies muscle weakness, Denies numbness, Denies radiating pain into limb and Denies tingling Neuro Denies abnormal gait, Denies dizziness, Denies frequent falls, Denies numbness, Denies tingling and Denies weakness Endo Denies fatigue and Denies palpitations Physical Exam Vital Signs: Last Vital Signs Pulse 74 02/14/24 12:28 BP 126/74 02/14/24 12:28 BMI result Body Mass Index 57.0 Const General: cooperative, healthy appearing, comfortable and no acute distress Orientation/consciousness: patient oriented x3 Neck Neck: Yes normal visual inspection and Yes no JVD Resp Effort & Inspection: normal respiratory effort Auscultation: clear to auscultation bilaterally, no crackles, no rales, no rhonchi and no wheezes Cardio Jugular venous distension: no JVD Rate: regular rate Rhythm: regular rhythm Heart sounds: S1 normal heart sound present, S2 normal heart sound present, no murmurs and no rubs Neuro General: patient oriented x3 Extrem Other: right radial cath site well healed, easily palp radial pulse, right hand assessment normal General: Yes normal to inspection and No no pedal edema Psych Appearance: grossly normal Mental Status: mental status grossly normal Speech and movement: Normal speech and movement present Assessment & Plan Assessment & Plan (1) Cardiomyopathy: Code(s): I42.9 - Cardiomyopathy, unspecified Category: Medical Plan: Nonischemic cardiomyopathy without any significant coronary disease, probably related to left bundle-branch block. LV ejection fraction is improved with neurohormonal modulation with carvedilol and valsartan. No signs or symptoms of heart failure. Good prognosis with this was discussed. I advised her to also start spironolactone therapy as neurohormonal modulators not as diuretic therapy. Rationale for therapy was discussed. Signs and symptoms of heart failure were discussed. Follow-up BNP after starting spironolactone in 1 week. Advised to call me with any new symptoms. Follow up in the clinic in 1 year's time after echocardiogram. Thank you for allowing me to partake in the care Coding Level of Care Code Est Pt Level 4 (33071) Diagnoses Cardiomyopathy I42.9
== END 2024-02-14 12:56 | disposition home or self-care (01) ==
PROVIDERS: PCP Internal Medicine; Visit Provider Internal Medicine Cardiovascular Disease
DX: I42.9 Cardiomyopathy, unspecified (principal)
CPT/HCPCS: 99214

== ENCOUNTER → 2024-02-14 12:17 | Outpatient (BNVA) | payer MEDICARE, SELFPAY | PROVIDERS: PCP Internal Medicine; Visit Provider Internal Medicine Cardiovascular Disease | DX: I42.9 Cardiomyopathy, unspecified (principal) | CPT/HCPCS: 99212 ==

== ENCOUNTER 2024-02-22 13:13 | Outpatient (REF) | payer MEDICARE, SELFPAY ==
[2024-02-22 14:16] LABS: Anion Gap 15 (12-20); Blood Urea Nitrogen 20 mg/dL (9-16); Calcium 10.6 mg/dL (8.4-10.2); Carbon Dioxide 24 mmol/L (22-29); Chloride 107 mmol/L (96-108); Estimated Glomerular Filt Rate > 60; Glucose Random 93 mg/dL (60-115); Potassium 4.6 mmol/L (3.3-5.1); Sodium 141 mmol/L (135-145)
== END 2024-02-22 13:14 | disposition home or self-care (01) ==
LOC: HO.LAB 13:13
PROVIDERS: PCP Internal Medicine; Visit Provider Internal Medicine Cardiovascular Disease
DX: I42.9 Cardiomyopathy, unspecified (principal)
CPT/HCPCS: 36415; 80048

== ENCOUNTER 2024-09-08 13:41 | Outpatient (AMB) | payer MEDICARE, SELFPAY ==
--- NOTE | 2024-09-08 13:44 | A.OFFVIS_ITS ---
Vital Signs 09/08/24 13:45 Height 5 ft 3 in Weight 135 lb 9.349 oz BMI 24.0 BP 140/80 H Blood Pressure Location Lt brachial Position Sitting Pulse 69 Pulse Source Pulse Oximeter Pulse Oximetry (%) 99 Oxygen Delivery Method Room Air Intake Visit Reasons: Asthma Benzene Washer Required: No Allergies shellfish derived Allergy (Severe, Verified 09/08/24 13:49) Hives/Itching Zncudts-QPF-ZaO Reductase Inhibitor Allergy (Severe, Verified 09/08/24 13:49) Nausea amoxicillin Allergy (Severe, Uncoded 09/08/24 13:49) Hives/Itching Percocet Allergy (Severe, Uncoded 09/08/24 13:49) Hives HPI Comments Details: The patient is a 79-year-old woman with known history of allergic rhinitis, asthma. Overall she has been doing very well. Denies any significant shortness of breath. She continues use of Flovent. She does use 1 puff twice a day in appears to be effective. She has not had to use her rescue inhaler. In addition to that she does continue to use the singular 10 mg at nighttime. Denies any adverse effects from that. Unfortunately, she has been reluctant to get vaccinated for COVID-19. I did encourage her to do so specially with delta variant. I also recommended if she did come back positive at some point she can always call the office so we can set her up for monoclonal antibodies. But her best bet is to get vaccinated to avoid it altogether or decrease the severity of it. The patient will think about it for now. In regards of her PFTs she appears to have a reversible obstruction consistent with the asthma. In addition to that her last chest x-ray demonstrates some minimal atelectasis. Clinically she is doing well will hold off on any imaging studies. but if the patient develops any respiratory symptoms she is to call so we can have her undergo a chest x-ray. Otherwise will do 1 next year. 06/26/2022 the patient is here for a pulmonary follow-up visit. she continues to do well. She did tolerate going down to the 1 puff of the Flovent. Hoarseness got better. She is also using her allergy medicine. She denies any recent exacerbations or needing prednisone. She did not undergo her chest x- ray. Will plan to have her get an x-ray prior to the next visit. However, if she develops any worsening symptoms she is to get her chest x-ray earlier. Otherwise patient is without any other complaints. 06/29/2023 the patient is here for a pulmonary follow-up visit. The patient overall has been doing well for the last year. She continues on the Flovent inhaler. She did have 1 episode sometime in the winter where she was exposed to sick contacts and that up with a URI. She did increase her Flovent to the maximum dose and she did not need any prednisone or antibiotics. The patient improved in after that went back to her baseline. She will undergo a chest x- ray today. In addition to that on examination she was noted to be tachycardic. She does state that she has been tachycardic most of her life. Therefore we did request an EKG. It does demonstrate a sinus tachycardia with the rate of 110 beats per minute at rest. In addition to that she does have some conduction abnormalities. The patient may want to consider a cardiology referral further discussions with her primary care doctor. Otherwise respiratory exam is completely normal. 09/08/2024 the patient is here for a pulmonary follow-up visit. Overall from a respiratory status she is doing very good. We had to switch her from Flovent to Arnuity which she seems to be tolerating although it does bother her throat. She does rinse well. I did offer her a different inhaled corticosteroid but she is opting to stay in on the in order. We can also consider decreasing it to ev jackie other day. She also continues on the Singulair. She has had a very eventful year. She was diagnosed with nonischemic cardiomyopathy and her EF is 45%. She also lost her and also family members and she has had a very tough year. She had been admitted briefly to [facility] with abdominal pain. She was diagnosed with gallstone pancreatitis. Right now that is stable. She did have significant amount of weight due to that. No recent imaging to review. No recent pulmonary function study this time. She is doing fairly well also will follow-up in a year's time. If the patient develops any worsening issues she will call for an earlier assessment. [facility] Medical History Cardiomyopathy Tachycardia Atelectasis Chronic allergic rhinitis Asthma Surgical History Hx of knee surgery Family History Father CAD (coronary artery disease) Mother Stroke Social History Patient Tobacco Use Status: Never used Tobacco Review of Systems Const Denies night sweats ENT Denies change in voice, Denies lip swelling, Denies mouth pain, Reports nasal congestion, Reports nasal discharge and Denies tongue swelling Card Denies chest pain and Denies palpitations Resp Reports cough GI Denies abdominal pain Musc Denies no additional complaints Neuro Denies Neuro-related abnormal movements Psych Denies no additional complaints Endo Denies palpitations Vadim/Lymph Denies easy bleeding and Denies lymphadenopathy Aller/Immun Denies lip swelling and Denies tongue swelling Physical Exam Vital Signs: Last Vital Signs Pulse 69 09/08/24 13:45 BP 140/80 H 09/08/24 13:45 Pulse Ox 99 09/08/24 13:45 Oxygen Delivery Method Room Air 09/08/24 13:45 BMI result Body Mass Index 24.0 Const General: alert Neck Neck: Yes normal visual inspection, Yes full ROM and Yes no lymphadenopathy Chest Chest palpation & inspection: normal inspection of the chest Resp Auscultation: clear to auscultation bilaterally, no rhonchi and no wheezes Cardio Rate: regular rate Rhythm: regular rhythm Heart sounds: S1 normal heart sound present and S2 normal heart sound present GI Palpation (GI): Soft to palpation and nontender Auscultation: normal bowel sounds Skin General skin exam: rashes and/or lesions noted Assessment & Plan Assessment & Plan (1) Asthma: Code(s): J45.909 - Unspecified asthma, uncomplicated Category: Medical Qualifiers: Asthma complication type: uncomplicated Asthma persistence: intermittent Asthma severity: mild Qualified Code(s): J45.20 - Mild intermitt ent asthma, uncomplicated (2) Chronic allergic rhinitis: Code(s): J30.9 - Allergic rhinitis, unspecified Category: Medical (3) Atelectasis: Code(s): J98.11 - Atelectasis Category: Medical (4) Cardiomyopathy: Code(s): I42.9 - Cardiomyopathy, unspecified Category: Medical Qualifiers: Cardiomyopathy type: unspecified Qualified Code(s): I42.9 - Cardiomyopathy, unspecified Plan continue Arnuity daily, if further irritation of her pallate she will call to change it YAKOV as needed continue singular follow-up in 1 year Coding Level of Care Code Est Pt Level 4 (29136) Diagnoses Mild intermittent asthma without complication J45.20 Asthma complication type: uncomplicated Asthma persistence: intermittent Asthma severity: mild Chronic allergic rhinitis J30.9 Atelectasis J98.11 Cardiomyopathy, unspecified type I42.9 Cardiomyopathy type: unspecified Time Spent (min) 17
[2024-09-08 13:45] VITALS: BP 140/80; PULSE 69; O2SAT 99; BMI 24.0
== END 2024-09-08 14:10 | disposition home or self-care (01) ==
PROVIDERS: PCP Internal Medicine; Visit Provider Hospitalist
DX: J45.20 Mild intermittent asthma, uncomplicated (principal); J30.9 Allergic rhinitis, unspecified; J98.11 Atelectasis; I42.9 Cardiomyopathy, unspecified
CPT/HCPCS: 99214

== ENCOUNTER → 2024-09-08 13:41 | Outpatient (BNVA) | payer MEDICARE, SELFPAY | PROVIDERS: PCP Internal Medicine; Visit Provider Hospitalist | DX: J45.20 Mild intermittent asthma, uncomplicated (principal); J30.9 Allergic rhinitis, unspecified; J98.11 Atelectasis; I42.9 Cardiomyopathy, unspecified | CPT/HCPCS: 99212 ==

== ENCOUNTER → 2025-02-06 09:54 | Outpatient (REF) | payer MEDICARE, SELFPAY ==
--- NOTE | 2025-02-06 09:58 | CA_ITS ---
Transthoracic Echocardiogram Patient (Last, First, Middle): Stephanie Glover, Gender: Female Date of : 1945 Age: 79 Procedure Date: 02/06/2025 Procedure Type: Transthoracic Echocardiogram Location: OP Height: 160. cm Weight: 64.87 kg BSA: 1.68 m2 Heart Rate: 60 bpm BP: 152 / 80 mmHg Legal Internship: DELORES Referring MD: Irving Bailey MD Symptoms: I42.9 - Cardiomyopathy, unspecified Study Quality: Adequate ECG Rhythm: Sinus Conclusions: - The left ventricular systolic function is normal. The visually estimated ejection fraction is between 55-60%. - There is moderate mitral annular calcification. Findings Left Ventricle Normal left ventricular cavity size. The left ventricular systolic function is normal. The visually estimated ejection fraction is between 55-60%. There is no evidence of regional wall motion abnormalities. There is paradoxical septal motion consistent with a left bundle branch block. Diastolic function is indeterminate on the basis of available data. There is mild septal asymmetric hypertrophy. Right Ventricle Normal right ventricular cavity size and systolic function. Atria Both atria are normal in size. Aortic Valve There is a normal trileaflet aortic valve. There is no aortic valve stenosis. There is no aortic valve regurgitation. Mitral Valve There is moderate mitral annular calcification. There is no mitral valve regurgitation. There is no mitral valve stenosis. Pulmonic Valve The pulmonic valve is likely normal. Tricuspid Valve There is trace tricuspid valve regurgitation. There is no evidence of pulmonary hypertension. Great Vessels The asc aorta is normal in size. Venous The inferior vena cava is normal in size and collapses greater than 50% with inspiration. Pericardium/Pleural There is no evidence of pericardial effusion. Prior Study Comparison Changes noted compared to prior study dated: 12/13/2023. LVEF slightly higher. Measurements 2D Linear Measurements IVSd: 1.00 0.6-0.9/0.6-1.0 cm LVIDd: 4.65 3.9-5.3/4.2-5.9 cm LVIDd Index: 2.77 2.4-3.2/2.2-3.1 cm/m2 LVIDs: 3.03 2.0-3.6 cm LVPWd: 0.79 0.7-1.1 cm LA Diam: 3.80 2.7-3.8/3.0-4.0 cm LAIDs Index: 2.26 1.5-2.3 cm/m2 LV Mass: 173.08 67-162/88-224 g LV Mass Index: 103.02 43-95/49-115 g/m2 LVOT Diam: 2.10 3.0+(-)1.3 cm 2D Systolic Function EF 4C: 58.80 >55% EF 2C: 65.60 >55% EF BiP: 61.30 >55% Mitral Valve MV Pk E: 1.26 MV Decel Time: 169.00 E'Lateral: 17.30 E'Medial: 11.50 E/E' Med: 11.00 E/E' Lat: 7.30 PHT: 50.00 MVA PHT: 4.40 Decel Whiteside: 7.43 Aortic Valve AoV Pk Simon: 0.97 AoV Mn Simon: 0.73 AoV VTI: 0.27 AoV Pk Grad: 4.00 Aov Mn Grad: 2.00 POORNIMA Cont.VTI: 2.34 LVOT LVOT Pk Simon: 0.68 LVOT Mn Simon: 0.52 LVOT VTI: 0.18 LVOT Pk Grad: 2.00 LVOT Mn Grad: 1.00 LVOT Diam: 2.10 LVOT Area: 3.46 Diastolic Function MV Pk E: 1.26 E'Medial: 11.50 E/E' Med: 11.00 E' Laterial: 17.30 E/E' Lat: 7.30 Right Ventricle TAPSE (mm): 26.10 TVS' Simon: 11.10 Tricuspid Valve TR Pk Simon: 2.14 TR Pk Grad: 18.00 RA Press: 3.00 RVSP: 21.00 Great Vessels Aorta Sinus of Valsalva: 3.10 2.0-3.5 cm Ao Asc: 3.10 2.1-3.4 cm Ao Arch: 3.30 Pulmonary Valve PV Pk Simon: 0.64 Peak PV Grad: 2.00 Updated in Other Vendor System with Status of Final Sixto Casillas MD electronically signed on 02/06/2025 11:53:54 AM with status of Final
--- OUTSIDE RECORDS SUMMARY | 2025-02-06 11:09 | XMS_ITS ---
Author Name [facility] Organization Unknown History of Medication Use Medication Directions Dispensed Refills Start Date End Date Stat Lumigan (drops) 1 Drop in each eye at bedtime 07/01/2021 completed EstroGel (gel in metered-dose pump) 1.25 gram/actuation completed Flovent HFA (HFA aerosol inhaler) 110 mcg/actuation completed spironolactone (tablet) 25 mg completed valsartan completed Ventolin HFA (HFA aerosol inhaler) 90 mcg/actuation co mpleted Encounters Encounter Type Encounter Reason Primary Diagnosis Location Date Ambulatory [facility] 02/2024 Care Team Organization Name Specialty Phone Email Start Date End Da te [facility] 09/22/2024 [facility] 01/13/2024
== END ==
LOC: HO.CARD 09:54
PROVIDERS: PCP Internal Medicine; Visit Provider Internal Medicine Cardiovascular Disease
DX: I42.9 Cardiomyopathy, unspecified (principal)
CPT/HCPCS: 93306

== ENCOUNTER → 2025-02-06 09:58 | Outpatient (BNV) | payer MEDICARE, SELFPAY | PROVIDERS: PCP Internal Medicine; Visit Provider Internal Medicine | DX: I42.2 Other hypertrophic cardiomyopathy (principal); I34.81 Nonrheumatic mitral (valve) annulus calcification | CPT/HCPCS: 93306 ==

== ENCOUNTER 2025-02-13 12:26 | Outpatient (AMB) | payer MEDICARE, SELFPAY ==
--- NOTE | 2025-02-13 12:32 | A.OFFVIS_ITS ---
Vital Signs 02/13/25 12:33 Height 5 ft 3 in Weight 145 lb 8.081 oz BMI 25.8 BP 110/70 Blood Pressure Location Lt brachial Position Sitting Pulse 74 Intake Visit Reasons: 1 yr s/p echo Intake Note: 1 year follow-up with ekg after echo Allergies shellfish derived Allergy (Severe, Verified 09/08/24 13:49) Hives/Itching Timtzyc-ZMG-PoG Reductase Inhibitor Allergy (Severe, Verified 09/08/24 13:49) Nausea amoxicillin Allergy (Severe, Uncoded 09/08/24 13:49) Hives/Itching Percocet Allergy (Severe, Uncoded 09/08/24 13:49) Hives Medication List - Last Reconciled 02/13/25 by Irving Bailey MD aspirin 81 mg PO DAILY bimatoprost 0.01% (Lumigan) drps ophthalmic (eye) carvedilol 12.5 mg PO BID dorzolamide 2% drps ophthalmic (eye) ONCE estradiol mcg vaginal fluticasone furoate 100 mcg/actuation (Arnuity Ellipta) 1 inh inhalation DAILY montelukast (Singulair) 10 mg PO BEDTIME 90 days multivitamin (Daily Multi-Vitamin tablet) 1 tab PO DAILY spironolactone 12.5 mg (1/2 x 25 mg) PO DAILY valsartan 80 mg PO BID Ventolin HFA 90 mcg/actuation (albuterol sulfate) 2 puffs PO Q6H PRN NS HPI Comments Details: Stephanie comes for follow-up. She has been doing very well. She remains very very active and has no exertional symptoms of chest pain. No shortness of breath, orthopnea, PND. Most recent echocardiogram shows normalized LV ejection fraction of 55-60%. She was taking all her medications. She had a recent lipid panel, but was not fasting was advised anticholesterol medication but she is not too excited about it. She in the past has not tolerated statin therapy. She denies any prolonged palpitation irregular heartbeat. She was also advised to be on Farxiga although she does not want to be any new medications if not required. [facility] Medical History Cardiomyopathy Tachycardia Atelectasis Chronic allergic rhinitis Asthma Surgical History Hx of knee surgery Family History Father CAD (coronary artery disease) Mother Stroke Social History Patient Tobacco Use Status: Never used Tobacco Review of Systems Const Denies chills, Denies fatigue, Denies fever(s), Denies frequent falls, Denies weakness, Denies weight gain and Denies weight loss ENT Denies dizziness Card Denies chest pain, Denies leg edema, Denies lightheadedness, Denies pa lpitations, Denies dyspnea, Denies dyspnea on exertion, Denies orthopnea and Denies other (loss of consciousness) Resp Denies cough, Denies dyspnea and Denies dyspnea on exertion GI Denies hematochezia and Denies change in stool character Musc Denies abnormal gait, Denies muscle weakness, Denies numbness, Denies radiating pain into limb and Denies tingling Neuro Denies abnormal gait, Denies dizziness, Denies frequent falls, Denies numbness, Denies tingling and Denies weakness Endo Denies fatigue and Denies palpitations Physical Exam Vital Signs: Last Vital Signs Pulse 74 02/13/25 12:33 BP 110/70 02/13/25 12:33 BMI result Body Mass Index 25.8 Const General: cooperative, healthy appearing, comfortable and no acute distress Orientation/consciousness: patient oriented x3 Neck Neck: Yes normal visual inspection and Yes no JVD Resp Effort & Inspection: normal respiratory effort Auscultation: clear to auscultation bilaterally, no crackles, no rales, no rhonchi and no wheezes Cardio Jugular venous distension: no JVD Rate: regular rate Rhythm: regular rhythm Heart sounds: S1 normal heart sound present, S2 normal heart sound present, no murmurs and no rubs Neuro General: patient oriented x3 Extrem Other: right radial cath site well healed, easily palp radial pulse, right hand assessment normal General: Yes normal to inspection and No no pedal edema Psych Appearance: grossly normal Mental Status: mental status grossly normal Speech and movement: Normal speech and movement present Office Procedures EKG Details: EKG shows sinus rhythm with first-degree AV block with nonspecific intraventricular conduction block with LBBB morphology [id number], Complete Assessment & Plan Assessment & Plan (1) Cardiomyopathy: Code(s): I42.9 - Cardiomyopathy, unspecified Category: Medical Qualifiers: Cardiomyopathy type: unspecified Qualified Code(s): I42.9 - Cardiomyopathy, unspecified Plan: Nonischemic cardiomyopathy with normalized LV ejection fraction on current neurohormonal modulation with carvedilol, spironolactone as well as valsartan therapy. Does not require any further escalation in neurohormonal modulation. Importance of neurohormonal modulation blood pressure control was discussed. Continue current therapy. Avoidance of cardiotoxic agent was discussed. Most likely bundle-branch block related. Follow-up echocardiogram every couple years. Signs and symptoms of heart failure were discussed. (2) Hyperlipidemia: Code(s): E78.5 - Hyperlipidemia, unspecified Category: Medical Plan: Hyperlipidemia with family history of premature coronary artery disease in her father. She has had no evidence of any atherosclerotic events and cardiac catheterization done for cardiomyopathy did not show any significant obstructive lesion. Advised to follow up with a fasting lipid panel along with vascular inflammatory markers. She was intolerance to statin therapy and may need to consider bempedoic acid along with ezetimibe to control her lipids if necessary. Will follow up in the clinic in 1 year's time, sooner p.r.n.. Thank you for allowing me to partake in her care Orders: Orders Apolipoprotein B Today I42.9 - Cardiomyopathy, unspecified Lipid Panel Today I42.9 - Cardiomyopathy, unspecified Lipoprotein A Today I42.9 - Cardiomyopathy, unspecified CRP High Sensitivity Today E78.5 - Hyperlipidemia, unspecified, I42.9 - Cardiomyopathy, unspecified Coding Level of Care Code Est Pt Level 4 (35635) Complex EM visit Add On G2211 Diagnoses Cardiomyopathy, unspecified type I42.9 Cardiomyopathy type: unspecified Hyperlipidemia E78.5 CPT Codes EKG - CPT: [id number], Complete ([id number])
[2025-02-13 12:33] VITALS: BP 110/70; PULSE 74; BMI 25.8
--- OUTSIDE RECORDS SUMMARY | 2025-02-13 14:21 | XMS_ITS ---
Author Organization [facility] Address [address] [place] [address] Care Team Providers Care Admission Liaison Name Role Phone YULY KU MD Primary Care Provider Unavail able Naty Polanco Unavailable [phone] Allergies Allergen (clinical drug ingredient) Drug/Non Drug Allergy documented on EMR Reaction Allergy Type Onset Date Status PENICILLIN Hives Drug Allergy Active amoxicillin AMOXICILLIN Hives Drug Allergy Act luz elena acetaminophen / oxycodone PERCOCET GI Upset Drug Allergy Active Results Component Value Reference Range Notes Vitamin D, [id number] Reviewed date:01/16/2025 03:26:52 PM Interpretation: Performing Lab:[facility] [place], [employer] [facility] [place], [place], Phone - [phone], Director - Teresa Notes/Report: Vitamin D, 25-Hydroxy 35.5 30.0-100.0 ng/mL Vitamin D deficiency has been defined by the [place] of [employer] and an Endocrine Society practice guideline as a level of serum 25-OH vitamin D less than 20 ng/mL (1,2). The Endocrine Society went on to further define vitamin D insufficiency as a level between 21 and 29 ng/mL (2). 1. IOM ([place] of [employer]). 2010. Dietary reference intakes for calcium and D. [place]: The National Academies Press. 2. Joe MF, Michael [place], Raina MIGUEL, et al. Evaluation, treatment, and prevention of vitamin D deficiency: an Endocrine Society clinical practice guideline. JCEM. 2010; 96(7):1911-30. PDF Report Reviewed date:01/16/2025 07:45:20 AM Interpretation: Performing Lab:[facility] [place], [address] [place], [place], Phone - [phone], Director - Teresa Notes/Report: REASON FOR VISIT INTERVAL MED CK Medications Medication SIG (Take, Route, Frequency, Duration) Notes Start Date End Date Status Estradiol Vaginal Cream 0.01% 1 Gram to the affected area Vaginal/Vulva Twice a week for 90 Days 12/21/2024 Active Yuvafem 10 MCG 1 tablet Vaginal TWICE A WEEK for 90 days 12/03/2021 Active [place] Extract 500 MG Orally Active Colostrum 500 MG Orally Act luz elena Curcumin 95 500 MG Orally A ctive Dorzolamide HCl 2 % 1 drop into affected eye Ophthalmic Three times a day Active Co Q-10 100MG 1 ORAL daily for -3 [facility] 07/07/2012 Active Vitamin C 500 MG as directed Orally Active ProAir HFA 90MCG 2 Inhalation four times daily for -3 [facility] 08/16/2013 Active Vitamin D3 5000 IU ORAL daily for -3 [facility] 08/16/2013 Active Vitamin B Complex-C - Orally Active Lumigan 0.01 % 1 drop into affected eye in the evening Ophthalmic Once a day Active Magnesium 300 MG 1 capsule with a alison l Orally Once a day Active Flovent HFA 110 MCG/ACT 1 puff Inhalation Twice a day Active Montelukast Sodium 10 MG 1 tablet in the evening Orally Once a day Active Valsartan 80 MG 1 tablet Orally Once a day Active Nattokinase 50 MG as directed Orally Active Quercetin Complex Immune - as directed Orally Active Coreg 12.5 MG 1 tablet with food Orally Twice a day Active Calcium 1 tab Oral for 14 days With Vitamin K Active Aspir-81 Active Social History Tobacco Use: Social History Observation Description Date Details (start date - stop date) Never Smoker NA - NA AUDIT-C (Standard) Question Answer Notes Did you have a drink contain ing alcohol in the past year? Yes How often did you have a dri nk containing alcohol in the past year? 2 to 3 times a week (3 points) How many drinks did you have on a typical day when you were drinking in the past year? 1 or 2 drinks (0 point) How often did you have six o r more drinks on one occasion in the past year? Never (0 point) Points 3 Interpretation Positive Tobacco Control (Standard) Question Answer Notes Tobacco use: Nonsmoker Vital Signs Temperature 97.8 degrees Fahrenheit 12/22/19 25 Blood pressure systolic 156 mm Hg 12/22/19 25 Blood pressure diastolic 86 mm Hg 025 Height 63.50 in 12/21/2024 Weight 141 lbs 12/21/2024 BMI 24.58 kg/m2 12/21/2024 Encounters Encounter Location Date Provider Diagnosis [facility] [address] [place] [address] 12/21/2024 Naty Polanco Encounter for gynecological examination (general) (routine) without abnormal findings Z01.419 ; Encounter for screening mammogram for malignant neoplasm of breast Z12.31 ; Age-related osteoporosis without current pathological fracture M81.0 ; Hypervitaminosis D E67.3 ; Postmenopausal atrophic vaginitis N95.2 and Dense breasts, unspecified R92.30 Assessments Encounter Date Diagnosis (ICD Code) Assessment Notes Treatment Notes Treatment Clinical Notes Section Notes 12/21/2024 Encounter for gynecological examination (general) (routine) without abnormal findings (ICD-10 - Z01.419) NO MORE PAP TESTS. 12/21/2024 Encounter for screening mammogram for malignant neoplasm of breast (ICD-10 - Z12.31) REGULAR MAMMOGRAMS AND SBE'S WERE RECOMMENDED. 12/21/2024 Age-related osteoporosis without current pathological fracture (ICD-10 - M81.0) DISCUSSED HER LAST BMD AND SLIGHT IMPROVEMENT. DISCUSSED OSTEOPOROSIS AND ITS IMPACT ON HER HEALTH. ADEQUATE CALCIUM AND VIT D. WEIGHT BEARING EXERCISES. OSTEO PRECAUTIONS. REPEAT BMD IN 2026. 12/21/2024 Hypervitaminosis D (ICD-10 - E67.3) VIT D WAS ELEVATED IN 2021 WHEN OSTEO WORK UP WAS DONE. VIT D SUPPLEMENTS WERE DISCONTINUED. RECHECK VIT D THIS YEAR. 12/21/2024 Postmenopausal atrophic vaginitis (ICD-10 - N95.2) SHIFT TO ESTRADIOL CREAM. DETAILED INSTRUCTIONS AND RX WERE GIVEN. 12/21/2024 Dense breasts, unspecified (ICD-10 - R92.30) DISCUSSED DENSE BREASTS ON MAMMOGRAM AND ITS IMPLICATIONS. 3D MAMMOGRAMS WERE RECOMMENDED. Plan Of Treatment Medication Medication Name Sig Start Date Stop Date Notes Estradiol Vaginal Cream 0.01% 1 Gram to the affected area Vaginal/Vulva Twice a week for 90 Days 12/21/2024 Treatment Notes Assessment Notes Encounter for gynecological examination (general) (routine) without abnormal findings NO MORE PAP TESTS. Encounter for screening mamm ogram for malignant neoplasm of breast REGULAR MAMMOGRAMS AND SBE'S WERE RECOMMENDED. Age-related osteoporosis wit hout current pathological fracture DISCUSSED HER LAST BMD AND SLIGHT IMPROVEMENT. DISCUSSED OSTEOPOROSIS AND ITS IMPACT ON HER HEALTH. ADEQUATE CALCIUM AND VIT D. WEIGHT BEARING EXERCISES. OSTEO PRECAUTIONS. REPEAT BMD IN 2026. Hypervitaminosis D VIT D WAS ELEVATED IN 2021 WHEN OSTEO WORK UP WAS DONE. VIT D SUPPLEMENTS WERE DISCONTINUED. RECHECK VIT D THIS YEAR. Postmenopausal atrophic vaginitis SHIFT TO ESTRADIOL CREAM. DETAILED INSTRUCTIONS AND RX WERE GIVEN. Dense breasts, unspecified DISCUSSED DENSE BREASTS ON MAMMOGRAM AND ITS IMPLICATIONS. 3D MAMMOGRAMS WERE RECOMMENDED. Pending Test Test Name Order Date MM Digital Mammo Screening 12/21/2024 Next Appt Details Follow Up: 1 Year, Reason: Provider Name:Naty oliva, 12/31/2025 01:00:00 PM, [address], [address], [place], [address], Progress Notes * CRYSTAL KOCHOB: [birth year] (79 yo F)Acc No.[id number]:12/21/2024 Patient:?KYLIE KOCH Appointment Provider:?Naty oliva M.D. :1945???Age:79 Y???Sex:Female D ate:12/21/2024 Address:[address] [place], [place] [id number] Pcp:YULY KU MD Subjective: * Chief Complaints: * ???INTERVAL MED CK * HPI: ???New/Follow-up Patient Consult:? 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 SHE IS TAKING THE LOSS WITH STRENGTH AND COURAGE.? THEY HAD BEEN TOGETHER SINCE SHE WAS AGE 17.? THEY SHARE A SON AND 2 GRANDCHILDREN. SHE USED TO USE YUVAFEM FOR ATROPHIC VAGINITIS BUT HAS BEEN SHIFTED TO ESTRADIOL CREAM DUE TO HIGH COST OF YUVAFEM.?? 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 SHE ALSO SEES A PRODUCTION AIDE DUE TO HEART MURMURS. HER LAST MAMMOGRAM DONE IN OCT 2024 SHOWED DENSE BREASTS AND WAS NORMAL.? HER LIFETIME BREAST CA RISK IS 5.9%. HER LAST PAP TEST IN 2017 WAS NEGATIVE AND HPV NEGATIVE.? SHE HAS NO HX OF ABNORMAL PAP TESTS. SHE IS KNOWN TO BE OSTEOPOROTIC BUT HER LAST BMD IN 2024 SHOWED IMPROVEMENT IN HER T-SCORES FROM -2.1 AT THE FEMORAL NECK AND -2.9 AT THE FOREARM IN 2020 TO -2.0 AND -2.5 RESPECTIVELY IN 2024.? SHE FELL AND FRACTURED HER LEFT LEG IN 2020.? SHE REFUSES MEDICATIONS AT THIS TIME. SHE HAD A COLONOSCOPY? DONE IN 2021. * ROS:?general:?no?chest pain.?no?palpitations.?no?headache.?no?cough.?no?shortness of breath.?no?fever.?no?unexplained weight loss.?no?nausea/vomiting.?no?change in bowel movements.?no blood in stool.?no?genitourinary complaints.?no?skin complaints.? * Medical History:? * Support Dba History:?/ Para?10/18.?Last Pap Smear:?12/13/17 NEG HRHPV, 07/07/12, neg.?Mammogram:?10/27/24 50-75% density, 09/21/23 50-75% density, 09/03/22 50-75% density, 09/02/21 50-75% density, 08/29/20 50-75% density, 08/22/19 50-75% density, 08/11/18 < 50% density, 08/09/2017 50-75% density, normal, 07/12/15, normal, 50- 75% density.?LMP and menses?[place].? Control:?None.?Colonoscopy?12/2020. 2009.?Bone Density:?10/27/24, 09/15/21, 04/15/17, 07/21/12.?PC SUPPORT SPECIALIST HISTORY MISC.?11/08/15 DB counseling done. Renée risk is 5.9%. Supplemental screening not indicated.? * OB History:?Total pregnancies?G1, P1001. vaginal..? * Surgical History:?Right Foot Bunionectomy Colonoscopy Tonsillectomy [place] Teeth Extraction Cataract Surgery 06/2021 & 07/2021 * Hospitalization/Major Diagno stic Procedure:?1 Vaginal Delivery See Surgical Hx * Family History:?Mother: dece ased, Alzheimer.?Father: , coronary artery disease.?Paternal aunt: colon ca age 93.?Maternal uncle: colon ca or stomach ca.? * Social History:?Tobacco Use:?Tobacco Control (Standard)?Tobacco use:?Nonsmoker ???Drugs/Alcohol:?Drugs?Have you used drugs other than those for medical reasons in the past 12 months??No ???Miscellaneous:?Children: yes, 1. ?Domestic violence: no. ?Exercise: yes, Cardio, walking. ?Living with: spouse. ?Marital status: . ?Natural support system: yes. ?Occupation: Retired. ?Sexual abuse: no. ?Sexually active: monogamous relationship. ?Verbal abuse: no. ???Drug/Alcohol:?AUDIT-C (Standard)?Did you have a drink containing alcohol in the past year??Yes ?How often did you have a drink containing alcohol in the past year??2 to 3 times a week (3 points) ?How many drinks did you have on a typical day when you were drinking in the past year??1 or 2 drinks (0 point) ?How often did you have six or more drinks on one occasion in the past year??Never (0 point) ?Points?3 ?Interpretation?Positive * Medications:?TakingAspir-81 Valsartan 80 MG Tablet 1 tablet Orally Once a day Coreg 12.5 MG Tablet 1 tablet with food Orally Twice a day Calcium 1 tab Oral , Notes to Pharmacist: With Vitamin KNattokinase 50 MG Capsule as directed Orally Quercetin Complex Immune - Capsule as directed Orally Flovent HFA 110 MCG/ACT Aerosol 1 puff Inhalation Twice a day Montelukast Sodium 10 MG Tablet 1 tablet in the evening Orally Once a day Lumigan 0.01 % Solution 1 drop into affected eye in the evening Ophthalmic Once a day Magnesium 300 MG Capsule 1 capsule with a meal Orally Once a day Vitamin B Complex-C - Capsule Orally Dorzolamide HCl 2 % Solution 1 drop into affected eye Ophthalmic Three times a day Co Q-10 100MG 30 1 ORAL daily , Notes to Pharmacist: John-WILBERProAir HFA 90MCG 1 2 Inhalation four times daily , Notes to Pharmacist: John-WILBERVitamin D3 5000 IU 30 ORAL daily , Notes to Pharmacist: John-MJVitamin C 500 MG Capsule as directed Orally Curcumin 95 500 MG Capsule Orally [place] Extract 500 MG Capsule Orally Colostrum 500 MG Capsule Orally Yuvafem 10 MCG Tablet 1 tablet Vaginal TWICE A WEEK Taking Aspir-81 Taking Valsartan 80 MG Tablet 1 tablet Orally Once a day Taking Coreg 12.5 MG Tablet 1 tablet with food Orally Twice a day Taking Calcium 1 tab Oral , Notes to Pharmacist: With Vitamin KTaking Nattokinase 50 MG Capsule as directed Orally Taking Quercetin Complex Immune - Capsule as directed Orally Taking Flovent HFA 110 MCG/ACT Aerosol 1 puff Inhalation Twice a day Taking Montelukast Sodium 10 MG Tablet 1 tablet in the evening Orally Once a day Taking Lumigan 0.01 % Solution 1 drop into affected eye in the evening Ophthalmic Once a day Taking Magnesium 300 MG Capsule 1 capsule with a meal Orally Once a day Taking Vitamin B Complex-C - Capsule Orally Taking Dorzolamide HCl 2 % Solution 1 drop into affected eye Ophthalmic Three times a day Taking Co Q-10 100MG 30 1 ORAL daily , Notes to Pharmacist: Pawel ProAir HFA 90MCG 1 2 Inhalation four times daily , Notes to Pharmacist: John-WILBERTaking Vitamin D3 5000 IU 30 ORAL daily , Notes to Pharmacist: John-WILBERTaking Vitamin C 500 MG Capsule as directed Orally Taking Curcumin 95 500 MG Capsule Orally Taking [place] Extract 500 MG Capsule Orally Taking Colostrum 500 MG Capsule Orally Taking Yuvafem 10 MCG Tablet 1 tablet Vaginal TWICE A WEEK * Allergies:?PENICILLIN: Hives - AllergyAMOXICILLIN: Hives - AllergyPERCOCET: GI Upset - Allergy Objective: * Vitals:?Ht: 63.50 in, Wt: 14 1 lbs, BMI:24.58Index, BP: 156/86 mm Hg, Temp: 97.8 F. * Examination: ???General Examination: ?GENERAL APPEARANCE:?in no acute distress, well developed, well nourished.?BREASTS:?normal, no dimpling, no discharge, no drainage, no masses palpable bilaterally, nontender.?PC SUPPORT SPECIALIST exam: ?EXTERNAL GENITALIA:?Normal female. No lesions, erythema or discharge.?VAGINA:?pink lam. No discharge or lesions. No cystocele or rectocele.?CERVIX:?No cervical motion tenderness, discharge or lesions.?UTERUS:?normal size, shape and consistency, normal mobility, nontender.?ADNEXA:?no masses or tenderness bilaterally.? Assessment: * Assessment: 1.?Encounter for gynecologic al examination (general) (routine) without abnormal findings - Z01.419???2.?Encounter for screening mammogram for malignant neoplasm of breast - Z12.31???3.?Age-related osteoporosis without current pathological fracture - M81.0???4.?Hypervitaminosis D - E67.3???5.?Postmenopausal atrophic vaginitis - N95.2???6.?Dense breasts, unspecified - R92.30??? Plan: * Treatment: 2.?Encounter for screening m ammogram for malignant neoplasm of breast?Imaging: MM Digital Mammo Screening Notes: REGULAR MAMMOGRAMS AND SBE'S WERE RECOMMENDED.?? 3.?Age-related osteoporosis without current pathological fracture? Notes: DISCUSSED HER LAST BMD AND SLIGHT IMPROVEMENT. DISCUSSED OSTEOPOROSIS AND ITS IMPACT ON HER HEALTH. ADEQUATE CALCIUM AND VIT D. WEIGHT BEARING EXERCISES. OSTEO PRECAUTIONS. REPEAT BMD IN 2026.?? 4.?Hypervitaminosis D?LAB: Vitamin D, [id number] Notes: VIT D WAS ELEVATED IN 2021 WHEN OSTEO WORK UP WAS DONE. VIT D SUPPLEMENTS WERE DISCONTINUED. RECHECK VIT D THIS YEAR.?? 5.?Postmenopausal atrophic v aginitis? Start Estradiol Vaginal Cream Cream, 0.01%, 1 Gram to the affected area, Vaginal/Vulva, Twice a week, 90 Days, 42.5 Gram, Refills 4.?? Notes: SHIFT TO ESTRADIOL CREAM. DETAILED INSTRUCTIONS AND RX WERE GIVEN.?? 6.?Dense breasts, unspecifie d? Notes: DISCUSSED DENSE BREASTS ON MAMMOGRAM AND ITS IMPLICATIONS. 3D MAMMOGRAMS WERE RECOMMENDED.?? * Procedure Codes:? * Follow Up:?1 Year * Images: Billing Information: * Visit Code:? * Procedure Codes:? * Sign off status: Completed true * Appointment Provider:?Naty Polanco M.D. Date:?12/21/2024 Generated for Shahzad landon/Donna/Rebasmitting on:?02/13/2025 02:21 PM EDT History and Physical Notes * HPI (History of Present Illness) Category Sub-Category Detail Notes Category Not es New/Follow-up Patient Consult ELLIOTT LOST HER TO ESOPHAGEAL CA IN MARCH 2024. SHE IS TAKING THE LOSS WITH STRENGTH AND COURAGE. THEY HAD BEEN TOGETHER SINCE SHE WAS AGE 17. THEY SHARE A SON AND 2 GRANDCHILDREN. SHE USED TO USE YUVAFEM FOR ATROPHIC VAGINITIS BUT HAS BEEN SHIFTED TO ESTRADIOL CREAM DUE TO HIGH COST OF YUVAFEM. 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 SHE ALSO SEES A PRODUCTION AIDE DUE TO HEART MURMURS. HER LAST MAMMOGRAM DONE IN OCT 2024 SHOWED DENSE BREASTS AND WAS NORMAL. HER LIFETIME BREAST CA RISK IS 5.9%. HER LAST PAP TEST IN 2017 WAS NEGATIVE AND HPV NEGATIVE. SHE HAS NO HX OF ABNORMAL PAP TESTS. SHE IS KNOWN TO BE OSTEOPOROTIC BUT HER LAST BMD IN 2024 SHOWED IMPROVEMENT IN HER T-SCORES FROM -2.1 AT THE FEMORAL NECK AND -2.9 AT THE FOREARM IN 2020 TO -2.0 AND -2.5 RESPECTIVELY IN 2024. SHE FELL AND FRACTURED HER LEFT LEG IN 2020. SHE REFUSES MEDICATIONS AT THIS TIME. SHE HAD A COLONOSCOPY DONE IN 2021. Examination Category Sub-Category Detail Notes Category Not es General Examination GENERAL APPEARANCE: in no ac reno-sparks distress, well developed, well nourished BREASTS: normal, no dimpling, no discharge, no drainage, no masses palpable bilaterally, nontender PC SUPPORT SPECIALIST exam CERVIX: No cervical motion tendernes s, discharge or lesions VAGINA: pink lam. No disch arge or lesions. No cystocele or rectocele EXTERNAL GENITALIA: Normal female. No le sions, erythema or discharge UTERUS: normal size, shape a nd consistency, normal mobility, nontender ADNEXA: no masses or tendern ess bilaterally
--- OUTSIDE RECORDS SUMMARY | 2025-02-13 14:21 | XMS_ITS ---
Author Organization Janay Hendricks MD Address [address] [place] [id number] Care Team Providers Care [place] Name Role Phone Lewis Ade Primary Care Provider Allergies Allergen (clinical drug ingredient) Drug/Non Drug Allergy documented on EMR Reaction Allergy Type Onset Date Status Shellfish (FN) shellfish (uncoded) Unknown Allergy Active amoxicillin Amoxicillin Unknown Drug Allergy Act luz elena acetaminophen / oxycodone Percocet Unknown Drug Allergy Active Results Component Value Reference Range Notes Hemoglobin [id number] Reviewed date:01/19/2025 10:22:06 AM Interpretation: Performing Lab:[facility] [place], [address] [facility], Phone - [phone], Director - Teresa Notes/Report: Hemoglobin A1c 6.0 4.8-5.6 % . Prediabetes: 5.7 - 6.4 Diabetes: >6.4 Glycemic control for adults with diabetes: <7.0 Urinalysis, Complete-[id number] Reviewed date:01/19/2025 10:22:06 AM Interpretation: Performing Lab:[facility] [place], [address] [facility], Phone - [phone], Director - Teresa Notes/Report: Specific [place] 1.020 1.005-1.030 pH 6.0 5.0-7.5 Urine-Color Yellow Yellow Appearance Clear Clear WBC Esterase 1+ Negative Protein Negative Negative/Trace Glucose Negative Negative Ketones Trace Negative Occult Blood Negative Negative Bilirubin Negative Negative Urobilinogen,Semi-Qn 0.2 0.2-1.0 mg/dL Nitrite, Urine Negative Negative Microscopic Examination See below: Micr oscopic was indicated and was performed. WBC 0-5 0 - 5 /hpf RBC None seen 0 - 2 /hpf Epithelial Cells (non renal) 0-10 0 - 10 /hpf Casts None seen None seen /lpf Bacteria None seen None seen/Few CBC With Differential/Platel et-[id number] Reviewed date:01/19/2025 10:22:06 AM Interpretation: Performing Lab:[facility], [address] [facility], [place], Phone - [phone], Director - Teresa Notes/Report: WBC 6.1 3.4-10.8 x10E3/uL RBC 4.11 3.77-5.28 x10E6/uL Hemoglobin 13.0 11.1-15.9 g/dL Hematocrit 39.6 34.0-46.6 % MCV 96 79-97 fL MCH 31.6 26.6-33.0 pg MCHC 32.8 31.5-35.7 g/dL RDW 12.7 11.7-15.4 % Platelets 239 150-450 x10E3/uL Neutrophils 64 Not Estab. % Lymphs 25 Not Estab. % Monocytes 7 Not Estab. % Eos 3 Not Estab. % Basos 1 Not Estab. % Neutrophils (Absolute) 3.9 1.4-7.0 x10E3/uL Lymphs (Absolute) 1.5 0.7-3.1 x10E3/uL Monocytes(Absolute) 0.5 0.1-0.9 x10E3/uL Eos (Absolute) 0.2 0.0-0.4 x10E3/uL Baso (Absolute) 0.1 0.0-0.2 x10E3/uL Immature Granulocytes 0 Not Estab. % Immature Grans (Abs) 0.0 0.0-0.1 x10E3/uL Vitamin D, 38-[id number] Reviewed date:01/19/2025 10:22:06 AM Interpretation: Performing Lab:[facility], [address] [facility], [place], Phone - [phone], Director - Teresa Notes/Report: Vitamin D, 25-Hydroxy 36.0 30.0-100.0 ng/mL Vitamin D deficiency has been defined by the [place] of [employer] and an Endocrine Society practice guideline as a level of serum 25-OH vitamin D less than 20 ng/mL (1,2). The Endocrine Society went on to further define vitamin D insufficiency as a level between 21 and 29 ng/mL (2). 1. IOM ([place] of [employer]). 2010. Dietary reference intakes for calcium and D. [place]: The National Academies Press. 2. Joe MF, Michael RICO, Raina MIGUEL, et al. Evaluation, treatment, and prevention of vitamin D deficiency: an Endocrine Society clinical practice guideline. JCEM. 2010; 96(7):1911-30. Albumin/Creatinine Ratio,Uri ne-[id number] Reviewed date:01/19/2025 10:22:06 AM Interpretation: Performing Lab:[facility] [place], [address] [place] [address], Phone - [phone], Director - Teresa Notes/Report: Creatinine, Urine 124.6 Not Estab. mg/dL Albumin, Urine 14.8 Not Estab. ug/mL Alb/Creat Ratio 12 0-29 mg/g creat Normal: 0 - 29 Moderately increased: 30 - 300 Severely increased: >300 B-Type Natriuretic Peptide-1 [id number] Reviewed date:01/19/2025 10:22:06 AM Interpretation: Performing Lab:[facility], [address] [facility], [place], Phone - [phone], Director - Teresa Notes/Report: B-Type Natriuretic Peptide 48.1 0.0-100.0 pg/m L Siemens ADVIA Centaur XP methodology Comp. Metabolic Panel ([id number] Reviewed date:01/19/2025 10:22:06 AM Interpretation: Performing Lab:[facility], [address] [place] [address], Phone - [phone], Director - MDCaryldry Notes/Report: Glucose 113 70-99 mg/dL BUN 25 8-27 mg/dL Creatinine 0.95 0.57-1.00 mg/dL eGFR 61 >59 mL/min/1.73 BUN/Creatinine Ratio 26 12-28 Sodium 141 134-144 mmol/L Potassium 4.6 3.5-5.2 mmol/L Chloride 103 96-106 mmol/L Carbon Dioxide, Total 22 20-29 mmol/L Calcium 10.2 8.7-10.3 mg/dL Protein, Total 7.3 6.0-8.5 g/dL Albumin 4.8 3.8-4.8 g/dL Globulin, Total 2.5 1.5-4.5 g/dL Bilirubin, Total 0.3 0.0-1.2 mg/dL Alkaline Phosphatase 67 44-121 IU/L AST (SGOT) 25 0-40 IU/L ALT (SGPT) 25 0-32 IU/L LP+Non-HDL Cholesterol-[id number] Reviewed date:01/19/2025 10:22:06 AM Interpretation: Performing Lab:[facility], [address] [facility], [place], Phone - [phone], Director - MDPing Notes/Report: Cholesterol, Total 292 100-199 mg/dL Triglycerides 82 0-149 mg/dL HDL Cholesterol 116 >39 mg/dL VLDL Cholesterol He 13 5-40 mg/dL LDL Chol Calc ([facility] [place]) 163 0-99 mg/dL LDL Calc Comment: Consider evaluating for Familial Hypercholesterolemia(FH), if clinically indicated. Non-HDL Cholesterol 176 0-129 mg/dL HCV Antibody-[id number] Reviewed date:01/19/2025 10:22:06 AM Interpretation: Performing Lab:[facility], [address] [facility], [place], Phone - [phone], Director - MDMelaniey Notes/Report: Hep C Virus Ab Non Reactive Non Reactive HCV antibody alone does not differentiate between previously resolved infection and active infection. Equivocal and Reactive HCV antibody results should be followed up with an HCV RNA test to support the diagnosis of active HCV infection. REASON FOR VISIT AWV Medications Medication SIG (Take, Route, Frequency, Duration) Notes Start Date End Date Status Aspirin 81 81 MG 1 tablet Orally Once a day for 30 day(s) Active Centrum Silver 50+Women - as directed Orally Active Carvedilol 12.5 MG TAKE 1 TABLET BY DANILO TH TWICE DAILY WITH MEAL/FOOD Oral for 90 Days Active Estrace 0.1 MG/GM Apply a thin layer t o affected area Vaginal apply nightly for 2 weeks, then three times a week for 01/15/2025 Active Spironolactone 25 MG TAKE 1/2 (ONE-HALF) TABLET BY MOUTH ONCE DAILY Oral for 90 Days Active Valsartan 80 MG TAKE 1 TABLET BY DANILO TH TWICE DAILY Oral for 30 Days Active Dorzolamide HCl 2 % INSTILL 1 DROPS INTO LEFT EYE TWICE DAILY Ophthalmic for 75 Days Active Lumigan 0.01 % Ophthalmic for 56 Days Active Montelukast Sodium 10 MG TAKE 1 TABLET B Y MOUTH AT BEDTIME Oral for 90 Days Active Flovent HFA 110 MCG/ACT Inhalation for 60 Days Active Social History Tobacco Use: Social History Observation Description Date Details (start date - stop date) Never Smoker NA - NA AUDIT-C (Standard) Question Answer Notes Did you have a drink contain ing alcohol in the past year? Yes How often did you have six o r more drinks on one occasion in the past year? Less than monthly (1 point) How many drinks did you have on a typical day when you were drinking in the past year? 1 or 2 drinks (0 point) How often did you have a dri nk containing alcohol in the past year? Monthly or less (1 point) Points 2 Interpretation Negative Tobacco Control (Standard) Question Answer Notes Tobacco use: Nonsmoker Problems Problem Type SNOMED Code ICD Code Onset Dates Problem Status W/U Status Risk Notes Problem Age-related osteoporosis (306661383) Age-related osteoporosis without current pathological fracture (M81.0) Active confirmed Vital Signs Temperature 95.2 degrees Fahrenheit 01/16/20 25 Heart Rate 84 /min 01/15/2025 Blood pressure systolic 122 mm Hg 01/16/20 25 Blood pressure diastolic 68 mm Hg 025 Weight 144 lbs 01/15/2025 BMI 27.21 kg/m2 01/15/2025 Height 61 in 01/15/2025 Oximetry 98 % 01/15/2025 Encounters Encounter Location Date Provider Diagnosis Janay Hendricks MD [address] [phone] 01/15/2025 Ade Saucedo Encounter for genera l adult medical examination without abnormal findings Z00.00 ; Hypertensive chronic kidney disease with stage 1 through stage 4 chronic kidney disease, or unspecified chronic kidney disease I12.9 ; Chronic kidney disease, stage 2 (mild) N18.2 ; Mixed hyperlipidemia E78.2 ; Prediabetes R73.03 ; Chronic systolic (congestive) heart failure I50.22 ; Cardiomyopathy, unspecified I42.9 ; Left bundle-branch block, unspecified I44.7 ; Mild intermittent asthma, uncomplicated J45.20 ; Vitamin D deficiency, unspecified E55.9 ; Encounter for screening for malignant neoplasm of colon Z12.11 ; Encounter for screening mammogram for malignant neoplasm of breast Z12.31 ; Encounter for screening for osteoporosis Z13.820 ; Asymptomatic menopausal state Z78.0 ; Age-related osteoporosis without current pathological fracture M81.0 ; Encounter for screening for cardiovascular disorders Z13.6 ; Encounter for immunization Z23 ; Immunization not carried out because of patient refusal Z28.21 ; Encounter for antibody response examination Z01.84 ; Encounter for screening for other viral diseases Z11.59 and Encounter for screening examination for other mental health and behavioral disorders Z13.39 Assessments Encounter Date Diagnosis (ICD Code) Assessment Notes Treatment Notes Treatment Clinical Notes Section Notes 01/15/2025 Encounter for general adult medical examination without abnormal findings (ICD-10 - Z00.00) General healthcare up-to-date. Will obtain updated routine labs. Healthcare proxy and MOLST form package given for review and completion. Plan to be for annual in 1 year 01/15/2025 Hypertensive chronic kidney disease with stage 1 through stage 4 chronic kidney disease, or unspecified chronic kidney disease (ICD-10 - I12.9) Blood pressure improved during today's visit. Did discuss with patient that her blood pressure has been elevated with previous visits and would like to have close follow-up to ensure blood pressure does not begin to rise again. Patient states that her blood pressure is fine and she will see me in 6 months. 01/15/2025 Chronic kidney disease, stage 2 (mild) (ICD-10 - N18.2) Previous GFR noted to be in the 60s. Will obtain an updated GFR level at this time. Patient also continues to decline moving forward with Farxiga as she states that drug is no good. Educated on the use of Farxiga and the benefits and patient continues to decline adding another medication, especially Farxiga, to her regimen 01/15/2025 Mixed hyperlipidemia (ICD-10 - E78.2) Previous lab work continues to reveal elevated lipid panels and patient continues to be adamant that her parking lot attendant and cashier, Dr. Gay, continues to advise patient not to take a statins or repatha as she was unable to tolerate them. Reviewed again with patient that if her LDL continues to rise her cardiovascular risk increases as well and she would benefit from medications to further manage this. Patient agreeable to have fasting labs drawn but is not agreeable to start a medication without consulting her parking lot attendant and cashier 01/15/2025 Prediabetes (ICD-10 - R73.03) Previous A1c was noted to be 5.9. Will reassess patient's hemoglobin A1c and determine if additional medication is warranted to help lower this level. If A1c level rises patient would benefit from beginning Farxiga not only for diabetes management but also CKD 01/15/2025 Chronic systolic (congestive) heart failure (ICD-10 - I50.22) Reviewed notes from cardiology from January 2024 and stable proBNP levels noted. Patient to remain on current medication regimen and will obtain an update pro-BNP level to reasess and ensure proper management of CHF 01/15/2025 Cardiomyopathy, unspecified (ICD-10 - I42.9) Patient with a history of nonischemic cardiomyopathy without significant coronary artery disease postcardiac cath 2 years ago. This may be related to left bundle branch block and patient's left ventricular EF was noted to be 45% on most recent echocardiogram. Patient to continue medications as prescribed and follow-up with cardiology as scheduled 01/15/2025 Left bundle-branch block, unspecified (ICD-10 - I44.7) See plan above 01/15/2025 Mild intermittent asthma, uncomplicated (ICD-10 - J45.20) Stable at present time and patient offers no complaints or concerns at today's visit 01/15/2025 Vitamin D deficiency, unspecified (ICD-10 - E55.9) Will check level as adjunct evaluation for fall risk and possibly dementia 01/15/2025 Encounter for screening for malignant neoplasm of colon (ICD-10 - Z12.11) Patient states she completed her colonoscopy through [facility] gastroenterology in 2022, and she remains up-to-date on colon cancer screenings. The last record of colonoscopy completion in 2008 and our office will reach out to obtain her most up to date colonoscopy to confirm she is up-to-date 01/15/2025 Encounter for screening mammogram for malignant neoplasm of breast (ICD-10 - Z12.31) Patient completed her mammogram in October 2024 and she remains up-to-date on breast cancer screenings 01/15/2025 Encounter for screening for osteoporosis (ICD-10 - Z13.820) Patient previously completed a bone density scan as ordered by her film producer. Patient states her film producer states that her osteoporosis did not improve and at this time patient declines wanting any medication as her film producer states the improvement was noted and there is no further workup for this. Spent time discussing treatment options but patient declines any additional medications and would like her film producer to manage her bone density screenings 01/15/2025 Asymptomatic menopausal state (ICD-10 - Z78.0) See plan above 01/15/2025 Age-related osteoporosis without current pathological fracture (ICD-10 - M81.0) Patient's most recent DEXA scan as ordered by gynecology did reveal osteoporosis. Patient states she had an updated DEXA scan and her film producer confirmed that she does not need medications as her osteoporosis improved. Patient declined wanting any additional treatments for further management and improvement of her bone health 01/15/2025 Encounter for screening for cardiovascular disorders (ICD-10 - Z13.6) Blood pressure stable. Will check for comorbidity of hyperlipidemia and hyperglycemia and use this data to further assess risk 01/15/2025 Encounter for immunization (ICD-10 - Z23) Patient's immunization record is still not accessible through the [place] immunization record system. Encouraged patient to provide our office with an immunization history so we can enter that in to our data and her record. Patient was previously notified that she needs a Tdap by her pulmonary provider but patient continues to decline all vaccines including her pneumonia vaccine, and Tdap in office today 01/15/2025 Immunization not carried out because of patient refusal (ICD-10 - Z28.21) See plan above 01/15/2025 Encounter for antibody response examination (ICD-10 - Z01.84) Titers have been checked in the past and is immune to rubeola 01/15/2025 Encounter for screening for other viral diseases (ICD-10 - Z11.59) Will screen for hepatitis C as is the general recommendation 01/15/2025 Encounter for screening examination for other mental health and behavioral disorders (ICD-10 - Z13.39) PHQ score reviewed no further interventions warranted at this time 01/15/2025 Other This note was created with voice dictation recognition software and may contain errors of grammar and syntax. Plan Of Treatment Next Appt Details Follow Up: AWV in 1 year, Re ason: Provider Name:Ade Saucedo , 06/20/2025 02:00:00 PM, [address] [place] [address], [address], [place], [place], [phone], Provider Name:Ade Saucedo , 01/21/2026 01:30:00 PM, [address] [facility], SUITE [facility], [place], [place], [id number], Progress Notes * Jose KOCHOB: [birth year] (79 yo F)Acc No.[id number]:01/15/2025 Progress Note Patient:?Stephanie KOCH Appointment Provider:?TAMARA Kulkarni :1945???Age:79 Y???Sex:Female D ate:01/15/2025 Address:[address] [place], [place] [id number] Subjective: * Chief Complaints: * ???1. AWV. * HPI: ???Medicare Annual Visit:? Patient presents today for his AWV. She states she?is up-to-date with her dental cleaning and vision exams. ?Type of Visit?-?Subsequent Annual Wellness Visit ?Language or Communication barrier addressed?-?Yes ?Health Risk Assessment?- Do you currently use tobacco products??See Social History ?- How often do you exercise??See Social History ?- In the past two weeks, how often have you felt depressed, down or hopeless??See PHQ2 and PHQ9 ?- How many times have you fallen in your home??Never ?Immunization Status addressed?-?Yes ?Depression Screening?-?PHQ2 done ?Vision Screening?-?Yes, patient sees regular automotive light mechanic or reproduction technician ?Hearing Screening?-?Yes, no gross abnormalities ?Fall Risk and Home Safety?Get Up and Go Evaluation?under 12 seconds ?Medication evaluation and reconcilliation performed?Yes ?Psychosocial Risks?-?No overt psychosocial risks shown, observed, or mentioned ?Behavioral Risks?-?Patient seems very well adjusted and no behavioral issues noted ?Activities of daily living?-?Not impaired ?Cognitive Screening?-?No overt cognitive deficiency is apparent by direct observation ???FLOOR SUPERVISOR:?Patient is followed by Dr. Polanco. She states she completed her mammogram this year with normal results. She completed her DEXA scan in 2024 (as ordered by her FLOOR SUPERVISOR)?and patient states there were findings of Osteoporosis but it overall improved. . ???Colonoscopy:?Completed her colonoscopy in 2022, followed by [facility] and completed this at [facility]. ???Depression Screening:?PHQ-2 (2015 Edition)?Little interest or pleasure in doing things??Not at all ?Feeling down, depressed, or hopeless??Not at all ?Total Score?0 * ROS:?General/Constitutional:?Denies?Change in appetite.?Denies?Chills.?Denies?Fever.?Denies?Sleep disturbance.?Denies?Weight gain.?Denies?Weight loss.?Respiratory:?Denies?Cough.?Denies?Shortness of breath.?Denies?Shortness of breath with exertion.?Denies?Sputum production.?Denies?Wheezing.?Cardiovascular:?Denies?Chest pain.?Denies?Chest pain with exertion.?Denies?Claudication.?Denies?Dizziness.?Denies?Dyspnea on exertion.?Denies?Irregular heartbeat.?Denies?Palpitations.?Denies?Shortness of breath.?Denies?Weight gain.?Gastrointestinal:?Denies?Dark Stools.?Denies?Abdominal pain.?Denies?Blood in stool.?Denies?Constipation.?Denies?Decreased appetite.?Denies?Heartburn.?Denies?Nausea.?Denies?Rectal bleeding.?Denies?Weight loss.?Hematology:?Denies?Bleeding problems.?Denies?Easy bruising.?Denies?Prolonged bleeding.?Denies?Swollen glands.?Genitourinary:?Denies?Nocturia.?Denies?Blood in urine.?Denies?Difficulty urinating.?Denies?Frequent urination.? * Medical History:?Asthma, Hyp ertension, Ventricular tachycardia, Vaginal atrophy, Left knee fracture, Hyperlipidemia. * Surgical History:?cataract ( bilateral) 2020, gallbladder removal 04/2024. * Ocular Surgical History:? Ocular Surgical History revi ewed with the patient. * Hospitalization/Major Diagno stic Procedure:?Pancreatitis 02/2024. * Family History:?Father: dece ased, 47 Heart attack .?Mother: , Stroke, Dementia, DM.?4 brother(s) - healthy. 1 son(s) - healthy. .? * Social History:?Tobacco Use:?Tobacco Control (Standard)?Tobacco use:?Nonsmoker ???Drugs/Alcohol:?Drugs?Have you used drugs other than those for medical reasons in the past 12 months??No ?Caffeine?Intake:?1-2 cups per day ?Do you smoke marijuana?: Denies. ?Do you drink alcohol?: Socially, Yes. ???Drug/Alcohol:?AUDIT-C (Standard)?Did you have a drink containing alcohol in the past year??Yes ?How often did you have six or more drinks on one occasion in the past year??Less than monthly (1 point) ?How many drinks did you have on a typical day when you were drinking in the past year??1 or 2 drinks (0 point) ?How often did you have a drink containing alcohol in the past year??Monthly or less (1 point) ?Points?2 ?Interpretation?Negative * Medications:?Taking Flovent HFA 110 MCG/ACT Aerosol Inhalation , Taking Montelukast Sodium 10 MG Tablet TAKE 1 TABLET BY MOUTH AT BEDTIME Oral , Taking Dorzolamide HCl 2 % Solution INSTILL 1 DROPS INTO LEFT EYE TWICE DAILY Ophthalmic , Taking Lumigan 0.01 % Solution Ophthalmic , Taking Valsartan 80 MG Tablet TAKE 1 TABLET BY MOUTH TWICE DAILY Oral , Taking Carvedilol 12.5 MG Tablet TAKE 1 TABLET BY MOUTH TWICE DAILY WITH MEAL/FOOD Oral , Taking Aspirin 81 81 MG Tablet Delayed Release 1 tablet Orally Once a day , Taking Centrum Silver 50+Women - Tablet as directed Orally , Taking Spironolactone 25 MG Tablet TAKE 1/2 (ONE-HALF) TABLET BY MOUTH ONCE DAILY Oral , Taking Estrace 0.1 MG/GM Cream Apply a thin layer to affected area Vaginal apply nightly for 2 weeks, then three times a week , Discontinued Estradiol 10 MCG Tablet Vaginal , Medication List reviewed and reconciled with the patient * Allergies:?Amoxicillin, Perc ocet, shellfish. Objective: * Vitals:?Temp:95.2F, HR:84/mi n, BP: 122/68 mm Hg, Wt:144lbs, BMI:27.21Index, Ht:61in, Oxygen sat %:98%. Past Vitals:* 11/02/2024 Temp:97.5F, HR:76/min, BP:13 8/82mm Hg, Wt:138.1lbs, BMI:26.09Index, Ht:61in, Oxygen sat %:98% * 08/28/2024 Temp:97.0F, HR:88/min, BP: S itting Left Arm:142/82 mm Hg,Sitting Right Arm:138/78mm Hg, Wt:133.4lbs, BMI:25.2Index, Ht:61in, Oxygen sat %:96% * 04/27/2024 Temp:96.7F, HR:80/min, BP:12 4/78mm Hg, Wt:126lbs, BMI:23.80Index, Ht:61in, Oxygen sat %:98% * Examination: ???General Examination: ?GENERAL APPEARANCE:?Age appropriate, in no acute distress, well developed, well nourished.?HEAD:?normocephalic, atraumatic.?EYES:?extraocular movement intact (EOMI), sclera non-icteric.?NECK/THYROID:?neck supple, full range of motion, no thyromegaly.?LYMPH NODES:?no cervical adenopathy.?HEART:?regular rate and rhythm, S1, S2 normal.?LUNGS:?clear to auscultation bilaterally.?BACK:?no kyphosis, no scoliosis.?EXTREMITIES:?no clubbing, cyanosis, or edema.?NEUROLOGIC:?nonfocal, alert and oriented, gait normal, motor strength grossly normal upper and lower extremities, no tremor.?PSYCH:?alert, oriented, good eye contact.? Assessment: * Assessment: 1.?Hypertensive chronic kidn ey disease with stage 1 through stage 4 chronic kidney disease, or unspecified chronic kidney disease - I12.9???2.?Encounter for general adult medical examination without abnormal findings - Z00.00 (Primary)???3.?Chronic kidney disease, stage 2 (mild) - N18.2???4.?Mixed hyperlipidemia - E78.2???5.?Prediabetes - R73.03???6.?Chronic systolic (congestive) heart failure - I50.22???7.?Cardiomyopathy, unspecified - I42.9???8.?Left bundle-branch block, unspecified - I44.7???9.?Mild intermittent asthma, uncomplicated - J45.20???10.?Vitamin D deficiency, unspecified - E55.9?? 11.?Encounter for screening for malignant neoplasm of colon - Z12.11???12.?Encounter for screening mammogram for malignant neoplasm of breast - Z12.31???13.?Encounter for screening for osteoporosis - Z13.820???14.?Asymptomatic menopausal state - Z78.0???15.?Age- related osteoporosis without current pathological fracture - M81.0???16.?Encounter for screening for cardiovascular disorders - Z13.6???17.?Encounter for immunization - Z23???18.?Immunization not carried out because of patient refusal - Z28.21???19.?Encounter for antibody response examination - Z01.84???20.?Encounter for screening for other viral diseases - Z11.59???21.?Encounter for screening examination for other mental health and behavioral disorders - Z13.39??? Plan: * Treatment: 2.?Hypertensive chronic kidn ey disease with stage 1 through stage 4 chronic kidney disease, or unspecified chronic kidney disease?LAB: Albumin/Creatinine Ratio,Urine-[id number] (Collection Date & Time - 01/15/2025 02:27 PM) Clinical Notes: Blood pressure improved during today's visit. Did discuss with patient that her blood pressure has been elevated with previous visits and would like to have close follow-up to ensure blood pressure does not begin to rise again. Patient states that her blood pressure is fine and she will see me in 6 months. ?? 3.?Chronic kidney disease, s tage 2 (mild)? Clinical Notes: Previous GFR noted to be in the 60s. Will obtain an updated GFR level at this time. Patient also continues to decline moving forward with Farxiga as she states that drug is no good. Educated on the use of Farxiga and the benefits and patient continues to decline adding another medication, especially Farxiga, to her regimen?? 4.?Mixed hyperlipidemia?LAB: LP+Non-HDL Cholesterol-[id number] (Collection Date & Time - 01/15/2025 02:27 PM) Clinical Notes: Previous lab work continues to reveal elevated lipid panels and patient continues to be adamant that her parking lot attendant and cashier, Dr. Gay, continues to advise patient not to take a statins or repatha as she was unable to tolerate them. Reviewed again with patient that if her LDL continues to rise her cardiovascular risk increases as well and she would benefit from medications to further manage this. Patient agreeable to have fasting labs drawn but is not agreeable to start a medication without consulting her parking lot attendant and cashier?? 5.?Prediabetes?LAB: Hemoglobin [id number] (Collection Date & Time - 01/15/2025 02:27 PM) Clinical Notes: Previous A1c was noted to be 5.9. Will reassess patient's hemoglobin A1c and determine if additional medication is warranted to help lower this level. If A1c level rises patient would benefit from beginning Farxiga not only for diabetes management but also CKD?? 6.?Chronic systolic (congest luz elena) heart failure?LAB: B-Type Natriuretic [id number] (Collection Date & Time - 01/15/2025 02:27 PM) Clinical Notes: Reviewed notes from cardiology from January 2024 and stable proBNP levels noted. Patient to remain on current medication regimen and will obtain an update pro-BNP level to reasess and ensure proper management of CHF?? 7.?Cardiomyopathy, unspecifi ed? Clinical Notes: Patient with a history of nonischemic cardiomyopathy without significant coronary artery disease postcardiac cath 2 years ago. This may be related to left bundle branch block and patient's left ventricular EF was noted to be 45% on most recent echocardiogram. Patient to continue medications as prescribed and follow-up with cardiology as scheduled?? 8.?Left bundle-branch block, unspecified? Clinical Notes: See plan above?? 9.?Mild intermittent asthma, uncomplicated? Clinical Notes: Stable at present time and patient offers no complaints or concerns at today's visit?? 10.?Vitamin D deficiency, un specified?LAB: Vitamin D, 13-[id number] (Collection Date & Time - 01/15/2025 02:27 PM) Clinical Notes: Will check level as adjunct evaluation for fall risk and possibly dementia?? 11.?Encounter for screening for malignant neoplasm of colon? Clinical Notes: Patient states she completed her colonoscopy through [facility] gastroenterology in 2022, and she remains up-to-date on colon cancer screenings. The last record of colonoscopy completion in 2008 and our office will reach out to obtain her most up to date colonoscopy to confirm she is up-to-date?? 12.?Encounter for screening mammogram for malignant neoplasm of breast? Clinical Notes: Patient completed her mammogram in October 2024 and she remains up-to-date on breast cancer screenings?? 13.?Encounter for screening for osteoporosis? Clinical Notes: Patient previously completed a bone density scan as ordered by her film producer. Patient states her film producer states that her osteoporosis did not improve and at this time patient declines wanting any medication as her film producer states the improvement was noted and there is no further workup for this. Spent time discussing treatment options but patient declines any additional medications and would like her film producer to manage her bone density screenings?? 14.?Asymptomatic menopausal state? Clinical Notes: See plan above?? 15.?Age-related osteoporosis without current pathological fracture? Clinical Notes: Patient's most recent DEXA scan as ordered by gynecology did reveal osteoporosis. Patient states she had an updated DEXA scan and her film producer confirmed that she does not need medications as her osteoporosis improved. Patient declined wanting any additional treatments for further management and improvement of her bone health?? 16.?Encounter for screening for cardiovascular disorders? Clinical Notes: Blood pressure stable. Will check for comorbidity of hyperlipidemia and hyperglycemia and use this data to further assess risk?? 17.?Encounter for immunizati on? Clinical Notes: Patient's immunization record is still not accessible through the [place] immunization record system. Encouraged patient to provide our office with an immunization history so we can enter that in to our data and her record. Patient was previously notified that she needs a Tdap by her pulmonary provider but patient continues to decline all vaccines including her pneumonia vaccine, and Tdap in office today?? 18.?Immunization not carried out because of patient refusal? Clinical Notes: See plan above?? 19.?Encounter for antibody r esponse examination? Clinical Notes: Titers have been checked in the past and is immune to rubeola?? 20.?Encounter for screening for other viral diseases?LAB: HCV Antibody-[id number] (Collection Date & Time - 01/15/2025 02:27 PM) Clinical Notes: Will screen for hepatitis C as is the general recommendation?? 21.?Encounter for screening examination for other mental health and behavioral disorders? Clinical Notes: PHQ score reviewed no further interventions warranted at this time?? 22.?Others? Clinical Notes: This note was created with voice dictation recognition software and may contain errors of grammar and syntax. ?? * Procedure Codes:?1123F ACP D ISCUSS/DSCN MKR DOCD, Modifiers: 25 , 1124F ACP DISCUSS-NO DSCNMKR DOCD, Modifiers: 25 * Preventive Medicine:? ??YOUR PREVENTIVE WELLNESS PLAN:?Prenar?The Recommended Frequency is:?1 dose age 65+ ?Breast Cancer Screening (Mammogram):?The Recommended Frequency is:?Every 1 year, age 50-74 (without family history), Every 2 year, age 40-50 (without family history) ?Osteoporosis Screening (Bone Density Measurement):?The Recommended Frequency is:?Routinely, for women ages 65+ ?Colorectal Cancer Screening:?The Recommended Frequency is:?Every 10 years, Colonoscopy, Every 3 years, Cologuard ?Pneumococcal (Pneumonia) Vaccine:?The Recommended Frequency is:?1 dose age 65+ ?Influenza (Flu) Vaccine:?The Recommended Frequency is:?Annually * Follow Up:?AWV in 1 year * Images: Billing Information: * Visit Code:? G0439 Subsequent Annual Wellness. G0442 Annual Alcohol Misuse Screening, 15 min. Modifiers: 25 G0446 Cardiovascular Screening. Modifiers: 25 G0444 Annual Depression Screening, 15 min. Modifiers: 59 * Procedure Codes:? 1123F ACP DISCUSS/DSCN MKR DOCD. Modifiers: 25 1124F ACP DISCUSS-NO DSCNMKR DOCD. Modifiers: 25 * Sign off status: Completed true * Appointment Provider:?TAMARA Kulkarni Date:?01/15/2025 Generated for Shahzad landon/Faxing/eTransmitting on:?02/13/2025 02:21 PM EDT History and Physical Notes * HPI (History of Present Illness) Category Sub-Category Detail Notes Category Not es Medicare Annual Visit Type of Visit -: Subsequ ent Annual Wellness Visit Language or Communication maia ledesma addressed -: Yes Health Risk Assessment - Do you currentl y use tobacco products?: See Social History - How often do you exercise?: See Social History - In the past two weeks, how often have you felt depressed, down or hopeless?: See PHQ2 and PHQ9 - How many times have you fallen in your home?: Never Immunization Status addressed -: Yes Vision Screening -: Yes, patient sees regular automotive light mechanic or reproduction technician Depression Screening -: PHQ2 done Hearing Screening -: Yes, no gross abnormalities Fall Risk and Home Safety Get Up and Go Evaluati on: under 12 seconds Medication evaluation and reconcilliatio n performed: Yes Psychosocial Risks -: No overt psychoso cial risks shown, observed, or mentioned Behavioral Risks -: Patient seems octavio y well adjusted and no behavioral issues noted Activities of daily living -: Not impaired Cognitive Screening -: No overt cognitiv e deficiency is apparent by direct observation Depression Screening PHQ-2 (2015 Edition) Little interest or pleasure in doing things?: Not at all Feeling down, depressed, or hopeless?: N ot at all Total Score: 0 Examination Category Sub-Category Detail Notes Category Not es General Examination GENERAL APPEARANCE: Age appr opriate, in no acute distress, well developed, well nourished HEAD: normocephalic, atrau matic EYES: extraocular movement intact (EOMI), sclera non-icteric NECK/THYROID: neck supple, full ra nge of motion, no thyromegaly HEART: regular rate and rhy thm, S1, S2 normal LUNGS: clear to auscultatio n bilaterally NEUROLOGIC: nonfocal, alert and oriented, gait normal, motor strength grossly normal upper and lower extremities, no tremor EXTREMITIES: no clubbing, cyanosi s, or edema BACK: no kyphosis, no scol iosis LYMPH NODES: no cervical adenopat hy PSYCH: alert, oriented, goo d eye contact
--- OUTSIDE RECORDS SUMMARY | 2025-02-13 14:22 | XMS_ITS ---
Author Organization [employer] Address [address] [facility] [address] [place] [address] Care Team Providers Care Design Agent Name Role Phone YULY KU MD Primary Care Provider Unavail Naty Zavaleta Unavailable [phone] REASON FOR VISIT REFILL Medications Medication SIG (Take, Route, Fr equency, Duration) Notes Start Date End Date Status Yuvafem 10 MCG 1 tablet Vaginal TWI CE A WEEK for 90 days 12/03/2021 Active Encounters Encounter Location Date Provider Diagnosis [facility] [employer] [address] [address] 05/05/2024 Naty Polanco Postmenopausal atrophic vaginitis N95.2 Assessments Encounter Date Diagnosis (ICD Code) Assessment Notes Treatment Notes Treatment Clinical Notes Section Notes 05/05/2024 Postmenopausal atrophic vaginitis (ICD-10 - N95.2) Plan Of Treatment Medication Medication Name Sig Start Date Stop Date Notes Yuvafem 10 MCG 1 tablet Vaginal TWICE A WEEK for 90 days 0 12/03/2021 Next Appt Details Provider Name:Naty oliva, 12/31/2025 01:00:00 PM, [facility] [address], [place], [address], Progress Notes * DAISHA KOCHMAUROOB: [birth year] (79 yo F)Acc No.[id number]:05/05/2024 Patient:?KYLIE KOCH :1945???Age:79 Y???Sex:Female Address:[address] [place] [address], , [place], [address] * Refills? Continue Yuvafem Tablet, 10 MCG, Vaginal, 24, 1 tablet, TWICE A WEEK, 90 days, Refills=4 * true * Date:? Generated for Shahzad landon/Donna/Gladis on:?02/13/2025 02:22 PM EDT
--- OUTSIDE RECORDS SUMMARY | 2025-02-13 14:22 | XMS_ITS | Patient Health Record ---
Author Organization Janay Ku MD Address [address] [place] [phone] Care Team Providers [facility] Administrator Name Role Phone Ade Saucedo Primary Care Provider Janay Ku Unavailable [phone] Allergies Allergen (clinical drug ingredient) Drug/Non Drug Allergy documented on EMR Reaction Allergy Type Onset Date Status Shellfish (FN) shellfish (uncoded) Unknown Allergy Active amoxicillin Amoxicillin Unknown Drug Allergy Act luz elena acetaminophen / oxycodone Percocet Unknown Drug Allergy Active Results Component Value Reference Range Notes Hemoglobin [id number]-[id number] Reviewed date:01/19/2025 10:22:06 AM Interpretation: Performing Lab:[facility] [place], [address] [facility], Phone - [phone], Director - Teresa Notes/Report: Hemoglobin A1c 6.0 4.8-5.6 % . Prediabetes: 5.7 - 6.4 Diabetes: >6.4 Glycemic control for adults with diabetes: <7.0 Urinalysis, Complete-[id number] Reviewed date:01/19/2025 10:22:06 AM Interpretation: Performing Lab:[facility], [address] [facility], Phone - [phone], Director - Teresa Notes/Report: Specific Redford 1.020 1.005-1.030 pH 6.0 5.0-7.5 Urine-Color Yellow [...] None seen None seen/Few CBC With Differential/Platel et-[id number] Reviewed date:01/19/2025 10:22:06 AM Interpretation: Performing Lab:[facility], [address] [facility], [place], Phone - [phone], Director - Teresa Notes/Report: WBC 6.1 3.4-10.8 [...] Grans (Abs) 0.0 0.0-0.1 x10E3/uL Vitamin D, 67-Fmtxvmx-[id number] Reviewed date:01/19/2025 10:22:06 AM Interpretation: Performing Lab:[facility], [address] [place] [address], [place], Phone - [phone], Director - Teresa Notes/Report: Vitamin D, 25-Hydroxy 36.0 30.0-100.0 ng/mL Vitamin D deficiency has been defined by the [place] of [employer] and an Endocrine Society practice guideline as a level of serum 25-OH vitamin D less than 20 ng/mL (1,2). The Endocrine Society went on to further define vitamin D insufficiency as a level between 21 and 29 ng/mL (2). 1. IOM ([place] of [employer]). 2010. Dietary reference intakes for calcium and D. [place]: The National Academies Press. 2. Joe MF, Michael RICO, Raina MIGUEL, et al. Evaluation, treatment, and prevention of vitamin D deficiency: an Endocrine Society clinical practice guideline. JCEM. 2010; 96(7):1911-30. Albumin/Creatinine Ratio,Uri ne-016626 Reviewed date:01/19/2025 10:22:06 AM Interpretation: Performing Lab:[facility], [address] [place] [address], Phone - [phone], Director - MDCaryldry Notes/Report: Creatinine, Urine 124.6 Not Estab. mg/dL Albumin, Urine 14.8 Not Estab. ug/mL Alb/Creat Ratio 12 0-29 mg/g creat Normal: 0 - 29 Moderately increased: 30 - 300 Severely increased: >300 B-Type Natriuretic Peptide-1 57573 Reviewed date:01/19/2025 10:22:06 AM Interpretation: Performing Lab:[facility], [address] [facility], [place], Phone - [phone], Director - MDMelaniey Notes/Report: B-Type Natriuretic Peptide 48.1 0.0-100.0 pg/m L Siemens ADVIA Centaur XP methodology Comp. Metabolic Panel (14)-3 68663 Reviewed date:01/19/2025 10:22:06 AM Interpretation: Performing Lab:[facility], [address] [place] [address], Phone - [phone], Director - MDJodry Notes/Report: Glucose 113 70-99 mg/dL BUN 25 [...] IU/L ALT (SGPT) 25 0-32 IU/L LP+Non-HDL Cholesterol-33598 5 Reviewed date:01/19/2025 10:22:06 AM Interpretation: Performing Lab:[facility] [place], [address] [place] [address], Phone - [phone], Director - MDCaryldry Notes/Report: Cholesterol, Total 292 100-199 mg/dL Triglycerides 82 0-149 mg/dL HDL Cholesterol 116 >39 mg/dL VLDL Cholesterol He 13 5-40 mg/dL LDL Chol Calc ([facility]) 163 0-99 mg/dL LDL Calc Comment: Consider evaluating for Familial Hypercholesterolemia(FH) , if clinically indicated. Non-HDL Cholesterol 176 0-129 mg/dL HCV Antibody-[id number] Reviewed date:01/19/2025 10:22:06 AM Interpretation: Performing Lab:[facility] [place], [address] [place] [address], Phone - [phone], Director - Teresa Notes/Report: Hep C Virus Ab Non Reactive Non Reactive HCV antibody alone does not differentiate between previously resolved infection and active infection. Equivocal and Reactive HCV antibody results should be followed up with an HCV RNA test to support the diagnosis of active HCV infection. MAMMOGRAM, SCREENING Reviewed date:11/11/2024 04:00:23 PM Interpretation: Performing Lab: Notes/Report: MAMMOGRAM, SCREENING Reviewed date:11/11/2024 04:00:23 PM Interpretation: Performing Lab: Notes/Report: Lipase-[id number] Reviewed date:03/20/2024 05:22:53 PM Interpretation: Performing Lab:[facility] [place], [address] [facility], [place], Phone - [phone], Director - Tiffaniy Notes/Report: Lipase 54 14-85 U/L CBC With Differential/Platel et-255035 Reviewed date:03/20/2024 05:22:53 PM Interpretation: Performing Lab:[facility] [place], [address] [facility], [place], Phone - [phone], Director - Teresa Notes/Report: WBC 11.0 3.4-10.8 x10E3/uL RBC 3.12 3.77-5.28 x10E6/uL Hemoglobin 9.4 11.1-15.9 g/dL Hematocrit 30.1 34.0-46.6 % MCV 97 79-97 fL MCH 30.1 26.6-33.0 pg MCHC 31.2 31.5-35.7 g/dL RDW 12.2 11.7-15.4 % Platelets 339 150-450 x10E3/uL Neutrophils 83 Not Estab. % Lymphs 9 Not Estab. % Monocytes 6 Not Estab. % Eos 1 Not Estab. % Basos 0 Not Estab. % Neutrophils (Absolute) 9.0 1.4-7.0 x10E3/uL Lymphs (Absolute) 1.0 0.7-3.1 x10E3/uL Monocytes(Absolute) 0.7 0.1-0.9 x10E3/uL Eos (Absolute) 0.1 0.0-0.4 x10E3/uL Baso (Absolute) 0.0 0.0-0.2 x10E3/uL Immature Granulocytes 1 Not Estab. % Immature Grans (Abs) 0.1 0.0-0.1 x10E3/uL Comp. Metabolic Panel (14)-3 47041 Reviewed date:03/20/2024 05:22:53 PM Interpretation: Performing Lab:[facility], [address] [place] [address], [place], Phone - [phone], Director - Teresa Notes/Report: Glucose 93 70-99 mg/dL BUN 6 8-27 mg/dL Creatinine 0.58 0.57-1.00 mg/dL eGFR 93 >59 mL/min/1.73 BUN/Creatinine Ratio 10 12-28 Sodium 139 134-144 mmol/L Potassium 4.1 3.5-5.2 mmol/L Chloride 101 96-106 mmol/L Carbon Dioxide, Total 22 20-29 mmol/L Calcium 8.5 8.7-10.3 mg/dL Protein, Total 5.6 6.0-8.5 g/dL Albumin 3.3 3.8-4.8 g/dL Globulin, Total 2.3 1.5-4.5 g/dL A/G Ratio 1.4 1.2-2.2 Bilirubin, Total 0.8 0.0-1.2 mg/dL Alkaline Phosphatase 267 44-121 IU/L AST (SGOT) 26 0-40 IU/L ALT (SGPT) 35 0-32 IU/L Phosphatidylethanol (PEth)-7 70345 Reviewed date:03/20/2024 05:22:53 PM Interpretation: Performing Lab:[facility] [place], Phone - [phone], Director - Teresa Notes/Report: PHOSPHATIDYLETHANOL Positive Phosphatidylethanol (PEth) 79 Analyzed compound: PEth 16:0/18:1. 2-npzeqverf-5-oleoyl-sn- asztluk-1-xhuiinzlwwcdwi . Analysis performed by Liquid Chromatography with Tandem Mass Spectrometry (LC/MS/MS). Detection limit: 20 ng/mL PEth levels in excess of 20 ng/mL are considered evidence of moderate to heavy ethanol consumption. However, the Center for Substance Abuse Treatment (CSAT) advises caution in interpretation and use of biomarkers alone to assess alcohol use. Results should be interpreted in the context of all available clinical and behavioral information. Reference: Substance Abuse and Mental Health Services Administration (2012). The Role of Biomarkers in the Treatment of Alcohol Use Disorders , 2012 Revision. Advisory, Volume 11, Issue 2. This test was developed and its performance characteristics determined by [facility]. It has not been cleared or approved by the Food and Drug Administration. PDF Report Reviewed date:03/20/2024 05:22:54 PM Interpretation: Performing Lab:[facility] [address], Phone - [phone], Director Odilon Moore Notes/Report: Hemoglobin L1p-[id number] Reviewed date:11/11/2024 04:00:22 PM Interpretation: Performing Lab:[facility] [address], Phone - [phone], Director Odilon Moore Notes/Report: Hemoglobin A1c 5.8 4.8-5.6 % . Prediabetes: 5.7 - 6.4 Diabetes: >6.4 Glycemic control for adults with diabetes: <7.0 Urinalysis, Complete-[id number] Reviewed date:11/11/2024 04:00:22 PM Interpretation: Performing Lab:[facility] [address], Phone - [phone], Director - MDJodry Notes/Report: Specific Redford 1.008 1.005-1.030 pH 6.5 5.0-7.5 Urine-Color Yellow Yellow Appearance Clear Clear WBC Esterase 2+ Negative Protein Negative Negative/Trace Glucose Negative Negative Ketones Negative Negative Occult Blood Negative Negative Bilirubin Negative Negative Urobilinogen,Semi-Qn 0.2 0.2-1.0 mg/dL Nitrite, Urine Negative Negative Microscopic Examination See below: Micr oscopic was indicated and was performed. WBC 0-5 0 - 5 /hpf RBC None seen 0 - 2 /hpf Epithelial Cells (non renal) 0-10 0 - 10 /hpf Casts None seen None seen /lpf Bacteria None seen None seen/Few CBC With Differential/Platel et-[id number] Reviewed date:11/11/2024 04:00:22 PM Interpretation: Performing Lab:[facility], [address] [place] [address], [place], Phone - [phone], Director - Teresa Notes/Report: WBC 5.4 3.4-10.8 x10E3/uL RBC 4.20 3.77-5.28 x10E6/uL Hemoglobin 13.3 11.1-15.9 g/dL Hematocrit 40.3 34.0-46.6 % MCV 96 79-97 fL MCH 31.7 26.6-33.0 pg MCHC 33.0 31.5-35.7 g/dL RDW 12.8 11.7-15.4 % Platelets 225 150-450 x10E3/uL Neutrophils 60 Not Estab. % Lymphs 27 Not Estab. % Monocytes 8 Not Estab. % Eos 4 Not Estab. % Basos 1 Not Estab. % Neutrophils (Absolute) 3.2 1.4-7.0 x10E3/uL Lymphs (Absolute) 1.5 0.7-3.1 x10E3/uL Monocytes(Absolute) 0.4 0.1-0.9 x10E3/uL Eos (Absolute) 0.2 0.0-0.4 x10E3/uL Baso (Absolute) 0.1 0.0-0.2 x10E3/uL Immature Granulocytes 0 Not Estab. % Immature Grans (Abs) 0.0 0.0-0.1 x10E3/uL Albumin/Creatinine Ratio,Uri ne-[id number] Reviewed date:11/11/2024 04:00:22 PM Interpretation: Performing [facility], [address] [place] [address], Phone - [phone], Director - KYPing Notes/Report: Creatinine, Urine 23.5 Not Estab. mg/dL Albumin, Urine <3.0 Not Estab. ug/mL Alb/Creat Ratio <13 0-29 mg/g creat Normal: 0 - 29 Moderately increased: 30 - 300 Severely increased: >300 B-Type Natriuretic Peptide-1 80851 Reviewed date:11/11/2024 04:00:22 PM Interpretation: Performing Lab:[facility] [place], [address] [place] [address], Phone - [phone], Director - Teresa Notes/Report: B-Type Natriuretic Peptide 47.4 0.0-100.0 pg/m L Siemens ADVIA Centaur XP methodology Comp. Metabolic Panel (14)-3 Reviewed date:11/11/2024 04:00:22 PM Interpretation: Performing [facility], [address] [place] [address], Phone - [phone], Director - Teresa Notes/Report: Glucose 98 70-99 mg/dL BUN 22 8-27 mg/dL Creatinine 0.89 0.57-1.00 mg/dL eGFR 66 >59 mL/min/1.73 BUN/Creatinine Ratio 25 12-28 Sodium 138 134-144 mmol/L Potassium 5.0 3.5-5.2 mmol/L Chloride 99 96-106 mmol/L Carbon Dioxide, Total 25 20-29 mmol/L Calcium 10.1 8.7-10.3 mg/dL Protein, Total 6.8 6.0-8.5 g/dL Albumin 4.7 3.8-4.8 g/dL Globulin, Total 2.1 1.5-4.5 g/dL Bilirubin, Total 0.5 0.0-1.2 mg/dL Alkaline Phosphatase 74 44-121 IU/L AST (SGOT) 24 0-40 IU/L ALT (SGPT) 25 0-32 IU/L MR Abdomen W WO Reviewed date:03/20/2024 05:22:53 PM Interpretation: Performing Lab: Notes/Report: Original Ordering Provider: JANAY KU MD [facility] Hemoglobin [id number]-[id number] Reviewed date:09/10/2024 07:47:40 PM Interpretation: Performing [facility], [address] [place] [address], Phone - [phone], Director - [facility] Notes/Report: Hemoglobin A1c 5.9 4.8-5.6 % . Prediabetes: 5.7 - 6.4 Diabetes: >6.4 Glycemic control for adults with diabetes: <7.0 Albumin/Creatinine Ratio,Uri ne-591639 Reviewed date:09/10/2024 07:47:40 PM Interpretation: Performing Lab:[facility], [address] [place] [address], Phone - [phone], [facility] Notes/Report: Creatinine, Urine 32.0 Not Estab. mg/dL Albumin, Urine <3.0 Not Estab. ug/mL Alb/Creat Ratio <9 0-29 mg/g creat Normal: 0 - 29 Moderately increased: 30 - 300 Severely increased: >300 B-Type Natriuretic Peptide-1 89314 Reviewed date:09/10/2024 07:47:41 PM Interpretation: Performing Lab:[facility], [address] [place] [address], Phone - [phone], [facility] Notes/Report: B-Type Natriuretic Peptide 32.1 0.0-100.0 pg/m L Siemens ADVIA Centaur XP methodology Comp. Metabolic Panel (14)-3 03529 Reviewed date:09/10/2024 07:47:41 PM Interpretation: Performing Lab:[address], Phone - [phone], Director - KYMelanie Notes/Report: Glucose 80 70-99 mg/dL BUN 19 8-27 mg/dL Creatinine 0.99 0.57-1.00 mg/dL eGFR 58 >59 mL/min/1.73 BUN/Creatinine Ratio 19 12-28 Sodium 141 134-144 mmol/L Potassium 4.8 3.5-5.2 mmol/L Chloride 103 96-106 mmol/L Carbon Dioxide, Total 21 20-29 mmol/L Calcium 9.8 8.7-10.3 mg/dL Protein, Total 7.1 6.0-8.5 g/dL Albumin 4.8 3.8-4.8 g/dL Globulin, Total 2.3 1.5-4.5 g/dL Bilirubin, Total 0.4 0.0-1.2 mg/dL Alkaline Phosphatase 90 44-121 IU/L AST (SGOT) 24 0-40 IU/L ALT (SGPT) 27 0-32 IU/L LP+Non-HDL Cholesterol-73240 5 Reviewed date:09/10/2024 07:47:41 PM Interpretation: Performing Lab:[facility] [place], [address] [place] [address], Phone - [phone], Director - Teresa Notes/Report: Cholesterol, Total 268 100-199 mg/dL Triglycerides 123 0-149 mg/dL HDL Cholesterol 90 >39 mg/dL VLDL Cholesterol He 21 5-40 mg/dL LDL Chol Calc (NIH) 157 0-99 mg/dL Non-HDL Cholesterol 178 0-129 mg/dL PDF Report Reviewed date:04/30/2024 09:35:13 PM Interpretation: Performing [facility], [address] [place] [address], Phone - [phone], Director - Teresa Notes/Report: Hemoglobin I1o-865111 Reviewed date:04/30/2024 09:35:13 PM Interpretation: Performing Lab:[facility] [place], [address] [place] [address], Phone - [phone], Director - Teresa Notes/Report: Hemoglobin A1c 5.9 4.8-5.6 % . Prediabetes: 5.7 - 6.4 Diabetes: >6.4 Glycemic control for adults with diabetes: <7.0 Urinalysis, Complete-[id number] Reviewed date:04/30/2024 09:35:13 PM Interpretation: Performing Lab:[facility] [place] [address] [place] [address], Phone - [phone], Director - Teresa Notes/Report: Specific Redford 1.007 1.005-1.030 pH 6.5 5.0-7.5 Urine-Color Yellow Yellow Appearance Clear Clear WBC Esterase Trace Negative Protein Negative Negative/Trace Glucose Negative Negative Ketones Negative Negative Occult Blood Negative Negative Bilirubin Negative Negative Urobilinogen,Semi-Qn 0.2 0.2-1.0 mg/dL Nitrite, Urine Negative Negative Microscopic Examination See below: Micr oscopic was indicated and was performed. WBC None seen 0 - 5 /hpf RBC None seen 0 - 2 /hpf Epithelial Cells (non renal) 0-10 0 - 10 /hpf Casts None seen None seen /lpf Bacteria None seen None seen/Few Albumin/Creatinine Ratio,Uri ne-[id number] Reviewed date:04/30/2024 09:35:13 PM Interpretation: Performing Lab:[facility], [facility], Phone - [phone], Director - MDJodry Notes/Report: Creatinine, Urine 22.5 Not Estab. mg/dL Albumin, Urine <3.0 Not Estab. ug/mL Alb/Creat Ratio <13 0-29 mg/g creat Normal: 0 - 29 Moderately increased: 30 - 300 Severely increased: >300 Comp. Metabolic Panel (14)-3 Reviewed date:04/30/2024 09:35:13 PM Interpretation: Performing Lab:[facility], [facility], [place], Phone - [phone], Director - MDJodry Notes/Report: Glucose 80 70-99 mg/dL BUN 19 8-27 mg/dL Creatinine 0.81 0.57-1.00 mg/dL eGFR 74 >59 mL/min/1.73 BUN/Creatinine Ratio 23 12-28 Sodium 141 134-144 mmol/L Potassium 4.8 3.5-5.2 mmol/L Chloride 103 96-106 mmol/L Carbon Dioxide, Total 23 20-29 mmol/L Calcium 10.3 8.7-10.3 mg/dL Protein, Total 7.1 6.0-8.5 g/dL Albumin 4.6 3.8-4.8 g/dL Globulin, Total 2.5 1.5-4.5 g/dL Bilirubin, Total 0.4 0.0-1.2 mg/dL Alkaline Phosphatase 75 44-121 IU/L AST (SGOT) 19 0-40 IU/L ALT (SGPT) 20 0-32 IU/L LP+Non-HDL Cholesterol-15176 5 Reviewed date:04/30/2024 09:35:13 PM Interpretation: Performing Lab:[facility], [facility], [place], Phone - [phone], Director - MDJodry Notes/Report: Cholesterol, Total 245 100-199 mg/dL Triglycerides 126 0-149 mg/dL HDL Cholesterol 61 >39 mg/dL VLDL Cholesterol He 22 5-40 mg/dL LDL Chol Calc (NIH) 162 0-99 mg/dL Non-HDL Cholesterol 184 0-129 mg/dL Reason For Referral Reason faxed Diagnosis 1 Calculus of bile clara t with acute cholangitis with obstruction (K80.33) Referral Organization Janay SILVESTRE Referring Provider First Name Ade Referring Provider Last Name Lewis Referring Provider Speciality Nurse Prac albertor Referred Provider Mason Davidson Referred Provider Specialty Gastroentero logy General Notes Ching MCGUIRE 01/2024 08:53:38 AM >faxedMAYNOR Brooke R 03/21/2024 01:11:45 PM > faxed Referral Priority Urgent Referral Appointment Date 04/03/2024 Reason Likely a stone prese nt that caused acute pancreatic episode. Needs further consult faxed Diagnosis 1 Acute pancreatitis w ithout necrosis or infection, unspecified (K85.90) Referral Organization Janay SILVESTRE Referring Provider First Name Ade Referring Provider Last Name Lewis Referring Provider Speciality Nurse Prac terry Referred Provider Leigh Rowan Referred Provider Specialty General Surg jackie General Notes Ching MCGUIRE 03/19 02:52:50 PM >faxMAYNOR malik Brooke R 04/12/2024 03:15:13 PM >patient already Referral Priority Routine Medications Medication SIG (Take, Route, Frequency, Duration) Notes Start Date End Date Status Aspirin 81 81 MG 1 tablet Orally Once a day for 30 day(s) Active Centrum Silver 50+Women - as directed Orally Active Valsartan 80 MG TAKE 1 TABLET BY DANILO TH TWICE DAILY Oral for 30 Days Active Carvedilol 12.5 MG TAKE 1 TABLET BY DANILO TH TWICE DAILY WITH MEAL/FOOD Oral for 90 Days Active Dorzolamide HCl 2 % INSTILL 1 DROPS INTO LEFT EYE TWICE DAILY Ophthalmic for 75 Days Active Lumigan 0.01 % Ophthalmic for 56 Days Active Montelukast Sodium 10 MG TAKE 1 TABLET B Y MOUTH AT BEDTIME Oral for 90 Days Active Estrace 0.1 MG/GM Apply a thin layer t o affected area Vaginal apply nightly for 2 weeks, then three times a week for 01/15/2025 Active Flovent HFA 110 MCG/ACT Inhalation for 60 Days Active Spironolactone 25 MG TAKE 1/2 (ONE-HALF) TABLET BY MOUTH ONCE DAILY Oral for 90 Days Active Immunizations Vaccine Route Administration Date Status Comme nts *Tdap Unknown 01/12/2024 Refused *Tdap Unknown 11/02/2024 Refused *PREVNAR 20 Unknown 10/31/2024 Administered RSV Unknown 07/16/2023 Administered Social History Tobacco Use: Social History Observation [...] Problem Status W/U Status Risk Notes Problem Vitamin D deficiency (20454053) Vitamin D deficiency, unspecified (E55.9) Active confirmed Problem Mixed hyperlipidemia (462982848) Mixed hyperlipidemia (E78.2) Active confirmed Problem Glaucoma (76165903) Unspecified glaucoma (H40.9) Active confirmed Problem Chronic kidney disease due to hypertension (821166645501257) Hypertensive chronic kidney disease with stage 1 through stage 4 chronic kidney disease, or unspecified chronic kidney disease (I12.9) Active confirmed Problem Dilated cardiomyopathy (838803769) Dilated cardiomyopathy (I42.0) Active confirmed Problem Cardiomyopathy (23818201) Cardiomyopathy, unspecified (I42.9) Active confirmed Problem Left bundle branch block (62458882) Left bundle-branch block, unspecified (I44.7) Active confirmed Problem Ventricular premature depolarization (301609765) Ventricular premature depolarization (I49.3) Active confirmed Problem Chronic systolic heart failure (007382728) Chronic systolic (congestive) heart failure (I50.22) Active confirmed Problem Cardiomegaly (9245892) Cardiomegaly (I51.7) Active confirmed Problem Chronic rhinitis (12204228) Chronic rhinitis (J31.0) Active confirmed Problem Mild intermittent asthma (631833681) Mild intermittent asthma, uncomplicated (J45.20) Active confirmed Problem Uncomplicated mild persistent asthma (819727221) Mild persistent asthma, uncomplicated (J45.30) Active confirmed Problem Atelectasis (14229490) Atelectasis (J98.11) Active confirmed Problem Acute cholangitis due to bile duct calculus with obstruction (disorder) (8533317460652996 ) Calculus of bile duct with acute cholangitis with obstruction (K80.33) Active confirmed Problem Age-related osteoporosis (152514123) Age-related osteoporosis without current pathological fracture (M81.0) Active confirmed Problem Chronic kidney disease stage 2 (190386709) Chronic kidney disease, stage 2 (mild) (N18.2) Active confirmed Problem Long-term current use of inhaled steroid (366588185) FDC (current) use of inhaled steroids (Z79.51) Active confirmed Vital Signs Heart Rate 84 /min 01/15/2025 Temperature 95.2 degrees Fahrenheit 01/15/2025 Blood pressure diastolic 68 mm Hg 01/15/2025 Oximetry 98 % 01/15/2025 Height 61 in 01/15/2025 Blood pressure systolic 122 mm Hg 01/15/2025 Weight 144 lbs 01/15/2025 BMI 27.21 kg/m2 01/15/2025 Encounters Encounter Location Date Provider Diagnosis Janay Ku MD [address] [id number] 03/07/2024 Janay Ku Acute pancreatitis without necrosis or infection, unspecified K85.90 Janay Ku MD [address] [id number] 04/27/2024 Ade Saucedo Acute pancreatitis without necrosis or infection, unspecified K85.90 ; Hypertensive chronic kidney disease with stage 1 through stage 4 chronic kidney disease, or unspecified chronic kidney disease I12.9 ; Chronic kidney disease, stage 2 (mild) N18.2 ; Body mass index [BMI] 23.0-23.9, adult Z68.23 ; Mixed hyperlipidemia E78.2 ; Prediabetes R73.03 ; Mild intermittent asthma, uncomplicated J45.20 ; Chronic systolic (congestive) heart failure I50.22 ; Cardiomyopathy, unspecified I42.9 and Left bundle-branch block, unspecified I44.7 Janay Ku MD [address] [id number] 08/28/2024 Ade Saucedo Hypertensive chronic kidney disease with stage 1 through stage 4 chronic kidney disease, or unspecified chronic kidney disease I12.9 ; Chronic kidney disease, stage 2 (mild) N18.2 ; Mixed hyperlipidemia E78.2 ; Prediabetes R73.03 ; Mild intermittent asthma, uncomplicated J45.20 ; Chronic systolic (congestive) heart failure I50.22 ; Cardiomyopathy, unspecified I42.9 and Left bundle-branch block, unspecified I44.7 Janay Ku MD [address] [id number] 11/02/[address] [facility] for immunization Z23 ; Immunization not carried out because of patient refusal Z28.21 ; Hypertensive chronic kidney disease with stage 1 through stage 4 chronic kidney disease, or unspecified chronic kidney disease I12.9 ; Chronic kidney disease, stage 2 (mild) N18.2 ; Mixed hyperlipidemia E78.2 ; Prediabetes R73.03 ; Mild intermittent asthma, uncomplicated J45.20 ; Chronic systolic (congestive) heart failure I50.22 ; Cardiomyopathy, unspecified I42.9 and Left bundle-branch block, unspecified I44.7 Janay Ku MD [address] [id number] 01/15/2025 Ade Saucedo Encounter for genera l [...] other mental health and behavioral disorders Z13.39 Janay Ku MD [address] [id number] 03/09/2024 Ade Ku MD [address] [id number] 03/14/2024 Ade Saucedo Acute pancreatitis without necrosis or infection, unspecified K85.90 Janay Ku MD [address] [id number] 03/14/2024 Janay Ku Acute pancreatitis without necrosis or infection, unspecified K85.90 Jnaay Ku MD [address] [id number] 03/16/2024 Ade Ku MD [address] [id number] 03/16/2024 Ade Ku MD [address] [id number] 03/20/2024 Ade Lewis Calculus of bile clara t with acute cholangitis with obstruction K80.33 Janay Ku MD [address] [id number] 04/10/2024 Ade Lewis Acute pancreatitis without necrosis or infection, unspecified K85.90 Janay Ku MD [address] [id number] 04/30/2024 Ade Ku MD [address] [id number] 06/27/2024 Ade Ku MD [address] [id number] 09/10/2024 Ade Ku MD [address] [id number] 11/20/2024 Ade Ku MD [address] [id number] 01/19/2025 Ade Ku MD [address] [id number] 01/19/2025 Ade Saucedo Assessments Encounter Date Diagnosis (ICD Code) Assessment Notes Treatment Notes Treatment Clinical Notes Section Notes 03/07/2024 Acute pancreatitis without necrosis or infection, unspecified (ICD-10 - K85.90) She was hospitalized for pancreatitis. She thinks was bad food. There are no hospital notes for review. She had a CAT scan but no MRCP nor evaluation for endoscopy. At the present time she is still in significant pain and was sent home with a clear liquid diet. She is basically having Jell-O and broth. She is using her 's oxycodone since she was discharged with Dilaudid and could not get this. She is using her the oxycodone every 4 hours because of recurrent pain. In view of this there may be persisting pancreatitis due to structural disease versus other issues such as penetrating ulcer and gastritis. This was was not evaluated in the hospital. At this point recommend recheck labs and empiric proton pump inhibitor therapy. Diet as tolerated. Recommend low-fat diet and advance diet to minimize malnutrition. Can also check MRCP to rule out structural disease. Recheck in short interval such as 1 week to make sure that there is improvement and if there is no improvement she will need additional evaluation to the evaluate for cause of ongoing pain. 03/14/2024 Acute pancreatitis without necrosis or infection, unspecified (ICD-10 - K85.90) 03/14/2024 Acute pancreatitis without necrosis or infection, unspecified (ICD-10 - K85.90) 03/20/2024 Calculus of bile duct with acute cholangitis with obstruction (ICD-10 - K80.33) 04/10/2024 Acute pancreatitis without necrosis or infection, unspecified (ICD-10 - K85.90) 04/27/2024 Hypertensive chronic kidney disease with stage 1 through stage 4 chronic kidney disease, or unspecified chronic kidney disease (ICD-10 - I12.9) Blood pressure stable during today's visit. Patient to remain on current medication regimen 04/27/2024 Acute pancreatitis without necrosis or infection, unspecified (ICD-10 - K85.90) Patient has not had any recurrent pancreatitis symptoms and is pending gallbladder removal in the coming weeks with Dr. Moraels given concerns for potential obstructive stone that caued her symptoms. 08/28/2024 Hypertensive chronic kidney disease with stage 1 through stage 4 chronic kidney disease, or unspecified chronic kidney disease (ICD-10 - I12.9) Reviewed with patient her slight elevation in her blood pressure reading today and patient states that she has been under a lot of stress and is mourning the loss of her on [employer] today. Discussed with patient that I would like to increase her blood pressure medication and she declined wanting to increase her valsartan at this time. Patient to remain on her current medication regimen and she is agreeable to take her blood pressure reading at home with follow-up in 6 weeks to reassess blood pressure and determine if adjustments in hypertension medication is warranted 08/28/2024 Chronic kidney disease, stage 2 (mild) (ICD-10 - N18.2) Previous GFR noted to be in the 60s. Patient to obtain updated GFR level and pt would benefit from adding Farxiga to her regimen and pt declined wanting to begin or adjust any medications at this time despite the benefits of Farxiga 11/02/2024 Encounter for immunization (ICD-10 - Z23) Reviewed with patient her immunization record that is not accessible through the [place] immunization record system. Encouraged patient to provide our office with an immunization history so we can enter that in to our data and her record. Patient states she was notified she needs a Tdap by her pulmonary provider but she declines receiving this as she received her pneumonia vaccine, PCV20, less than 2 weeks ago. Discussed that we can provide Tdap in office today and patient states she will not get another vaccine at this time 01/15/2025 Hypertensive chronic kidney disease with stage [...] will see me in 6 months. 01/15/2025 Encounter for general adult medical examination without abnormal findings (ICD-10 - Z00.00) General healthcare up-to-date. Will obtain updated routine labs. Healthcare proxy and MOLST form package given for review and completion. Plan to be for annual in 1 year 01/15/2025 Chronic kidney disease, stage 2 (mild) [...] another medication, especially Farxiga, to her regimen 11/02/2024 Immunization not carried out because of patient refusal (ICD-10 - Z28.21) See plan above 08/28/2024 Mixed hyperlipidemia (ICD-10 - E78.2) Previous lab work revealed an elevated lipid panel and patient states that her wheel roller, Dr. Gay, advised patient not to take statins as she cannot tolerate them due to elevated LFT levels. Reviewed previous documentation but there was no mention of hyperlipidemia in office notes that we received from cardiology. Will obtain an updated lipid panel as patient may benefit from treatment with either Zetia or an injectable to further assist in managing her hyperlipidemia if LDL still remains elevated 04/27/2024 Chronic kidney disease, stage 2 (mild) (ICD-10 - N18.2) Previous GFR noted to be in the 60s. Patient to obtain updated GFR level 04/27/2024 Body mass index [BMI] 23.0-23.9, adult (ICD-10 - Z68.23) Pt has lost nearly 30 lbs since her visit in February. She states due to her pancreatitis admission she was placed on a liquid diet and has slowly been easing into adjusting her diet and adding more solid foods to her diet, and she is now gaining some more weight 08/28/2024 Prediabetes (ICD-10 - R73.03) Previous A1c was noted to be 5.9. Will reassess patient's hemoglobin A1c and determine if additional medication is warranted to help lower this level 11/02/2024 Hypertensive chronic kidney disease with stage 1 through stage 4 chronic kidney disease, or unspecified chronic kidney disease (ICD-10 - I12.9) Discussed again with patient her in office elevation in her blood pressure reading. Patient was adamant that her blood pressure is fine and that she sees a specialist and she is good with what I'm on. Reviewed the informed proper blood pressure management to ensure health as well as brain health and patient still continue to decline increasing or adding any additional medication to her regimen. Patient is agreeable to be seen in December as scheduled and will recheck her blood pressure and continue to educate on the proper management of hypertension and the importance of proper hypertension control 01/15/2025 Mixed hyperlipidemia (ICD-10 - E78.2) Previous lab work continues to reveal elevated lipid panels and patient continues to be adamant that her wheel roller, Dr. Gay, continues to advise patient not [...] to start a medication without consulting her wheel roller 01/15/2025 Prediabetes (ICD-10 - R73.03) Previous A1c was noted to be 5.9. Will reassess patient's hemoglobin A1c and determine if additional medication is warranted to help lower this level. If A1c level rises patient would benefit from beginning Farxiga not only for diabetes management but also CKD 08/28/2024 Mild intermittent asthma, uncomplicated (ICD-10 - J45.20) Stable at present time and patient offers no complaints or concerns at today's visit 11/02/2024 Chronic kidney disease, stage 2 (mild) (ICD-10 [...] another medication, especially Farxiga, to her regimen 04/27/2024 Mixed hyperlipidemia (ICD-10 - E78.2) Previous lab work revealed elevated lipid panel and patient states that her wheel roller, Dr. Gay, advised patient not to take statins as she cannot tolerate them. Our office did request previous records from patient's wheel roller and reviewed most recent noted from January 2024. Will obtain an updated lipid panel and patient states she is not interested in any orals or injectables for cholesterol management and she will not take any medications for this if her levels remain elevated 04/27/2024 Prediabetes (ICD-10 - R73.03) Previous A1c was noted to be 6.0. Will reassess patient's hemoglobin A1c and determine if additional medication is warranted to help lower this level 08/28/2024 Chronic systolic (congestive) heart failure (ICD-10 - I50.22) Reviewed notes from cardiology from January 2024 and stable proBNP levels noted. Patient to remain on current medication regimen and follow-up with cardiology as scheduled with repeat echocardiogram next year. Will also obtain an update pro-BNP level to reasess and ensure proper management of CHF 11/02/2024 Mixed hyperlipidemia (ICD-10 - E78.2) Previous lab work did reveal an elevated lipid panel and patient is adamant that her wheel roller, Dr. Gay, continues to advise patient not to take a statin as she was unable to tolerate them. Reviewed additional medications that are not statins for proper management of hyperlipidemia and patient declined. Patient is agreeable to have fasting labs drawn today to reassess LDL level 01/15/2025 Chronic systolic (congestive) heart failure (ICD-10 [...] prescribed and follow-up with cardiology as scheduled 11/02/2024 Prediabetes (ICD-10 - R73.03) Previous A1c was noted to be 5.9. Will reassess patient's hemoglobin A1c and determine if additional medication is warranted to help lower this level 08/28/2024 Cardiomyopathy, unspecified (ICD-10 - I42.9) Reviewed office notes from Cardiology from January and patient does have nonischemic cardiomyopathy without significant coronary artery disease postcardiac cath. This may be related to left bundle branch block and patient's left ventricular EF was noted to be 45% on most recent echocardiogram. Patient to continue medications as prescribed and follow-up with cardiology as scheduled 04/27/2024 Mild intermittent asthma, uncomplicated (ICD-10 - J45.20) Stable at present time and patient offers no complaints or concerns at today's visit 04/27/2024 Chronic systolic (congestive) heart failure (ICD-10 - I50.22) Reviewed notes from cardiology from January 2024 and stable proBNP levels noted. Patient to remain on current medication regimen and follow-up with cardiology as scheduled with repeat echocardiogram next year 08/28/2024 Left bundle-branch block, unspecified (ICD-10 - I44.7) See plan above 01/15/2025 Left bundle-branch block, unspecified (ICD-10 - I44.7) See plan above 11/02/2024 Mild intermittent asthma, uncomplicated (ICD-10 - J45.20) Stable at present time and patient offers no complaints or concerns at today's visit 11/02/2024 Chronic systolic (congestive) heart failure (ICD-10 - I50.22) Reviewed notes from cardiology from January 2024 and stable proBNP levels noted. Patient to remain on current medication regimen and will obtain an update pro-BNP level to reasess and ensure proper management of CHF 01/15/2025 Mild intermittent asthma, uncomplicated (ICD-10 - J45.20) Stable at present time and patient offers no complaints or concerns at today's visit 04/27/2024 Cardiomyopathy, unspecified (ICD-10 - I42.9) Reviewed office notes from Cardiology from January and patient does have nonischemic cardiomyopathy without significant coronary artery disease postcardiac cath. This may be related to left bundle branch block and patient's left ventricular EF was noted to be 45% on cardiology's most recent echocardiogram. Patient to continue medications as prescribed and follow-up with cardiology as scheduled 04/27/2024 Left bundle-branch block, unspecified (ICD-10 - I44.7) See plan above 01/15/2025 Vitamin D deficiency, unspecified (ICD-10 - E55.9) Will check level as adjunct evaluation for fall risk and possibly dementia 11/02/2024 Cardiomyopathy, unspecified (ICD-10 - I42.9) Patient with a history of nonischemic cardiomyopathy without significant coronary artery disease postcardiac cath last year. This may be related to left bundle branch block and patient's left ventricular EF was noted to be 45% on most recent echocardiogram. Patient to continue medications as prescribed and follow-up with cardiology as scheduled 11/02/2024 Left bundle-branch block, unspecified (ICD-10 - I44.7) See plan above 01/15/2025 Encounter for screening for malignant neoplasm of colon (ICD-10 - Z12.11) Patient states she completed her colonoscopy through [facility] gastroenterology in 2022, and she remains up-to-date [...] bone density scan as ordered by her production tech. Patient states her production tech states that her osteoporosis did not improve and at this time patient declines wanting any medication as her production tech states the improvement was noted and there is no further workup for this. Spent time discussing treatment options but patient declines any additional medications and would like her production tech to manage her bone density screenings 01/15/2025 Asymptomatic menopausal state (ICD-10 - Z78.0) See plan above 01/15/2025 Age-related osteoporosis without current pathological fracture (ICD-10 - M81.0) Patient's most recent DEXA scan as ordered by gynecology did reveal osteoporosis. Patient states she had an updated DEXA scan and her production tech confirmed that she does not need medications [...] record is still not accessible through the [place] immunization record system. Encouraged patient to provide [...] no further interventions warranted at this time 03/07/2024 Other This note was created with voice dictation recognition software and may contain errors of grammar and syntax. Also labs were reviewed with patient. 08/28/2024 Other Also discussed stopping aspirin and beginning Plavix and patient declined wanting to adjust any of her medications at this time despite any bleeding risk given her age. Discussed with patient her immunization status and aware that we do not have record of her immunizations. Patient states she believes she is up-to-date with her vaccines and encouraged patient to provide our office with an immunization record to confirm she is up-to-date. 01/15/2025 Other This note was created with voice dictation recognition software and may contain errors of grammar and syntax. Plan Of Treatment Pending Test Test Name Order Date Hemoglobin [id number] 01/12/2024 Urinalysis, Complete-[id number] 01/12/2024 Comp. Metabolic Panel [id number] 2023 LP+Non-HDL Cholesterol-[id number] 01/12/2024 Next Appt Details Provider Name:Ade Saucedo , 06/20/2025 02:00:00 PM, [address] [place] [address], [phone], Provider Name:Ade Saucedo , 01/21/2026 01:30:00 PM, [address] [place] [address], [phone], Insurance Providers Payer Name Payer Address Payer Phone Subscriber Number Group Number Insured Name Patient Relationship to Insured Coverage Start Date Coverage End Date MEDICARE [address] [place] [phone] [id number] Stephanie Glover Self - patient is the insured BCBS MEDEX [address] [place] [address] [id number] Stephanie Glover Self - patient is the insured Medical (General) History Medical History History ICD Code asthma hypertension ventricular tachycardia vaginal atrophy left knee fracture hyperlipidemia Surgical History Surgery Date(Month/Year) cataract (bilateral) 2020 gallbladder removal 04/2024 Hospitalization History Reason Date(Month/Year) Pancreatitis 02/2024
--- OUTSIDE RECORDS SUMMARY | 2025-02-13 14:22 | XMS_ITS | Patient Health Record ---
Author Organization [facility] Address [address] [place] [address] Care Team Providers Care Residential Property Tax Appraiser Name Role Phone YULY KU MD Primary Care Provider Unavail able Naty Polanco Unavailable [phone] Allergies Allergen (clinical drug ingredient) Drug/Non Drug Allergy documented on EMR Reaction Allergy Type Onset Date Status PENICILLIN Hives Drug Allergy Active amoxicillin AMOXICILLIN Hives Drug Allergy Act luz elena acetaminophen / oxycodone PERCOCET GI Upset Drug Allergy Active Results Component Value Reference Range Notes Vitamin D, [id number] Reviewed date:01/16/2025 03:26:52 PM Interpretation: Performing Lab:[facility], [facility], Phone - [phone], Director - Teresa Notes/Report: Vitamin D, 25-Hydroxy 35.5 30.0-100.0 ng/mL Vitamin D deficiency has been defined by the [place] of Medicine and an Endocrine Society practice guideline as a level of serum 25-OH vitamin D less than 20 ng/mL (1,2). The Endocrine Society went on to further define vitamin D insufficiency as a level between 21 and 29 ng/mL (2). 1. IOM ([place] of Medicine). 2010. Dietary reference intakes for calcium and D. [place]: The National Academies Press. 2. Joe MF, Michael NC, Raina MIGUEL, et al. Evaluation, treatment, and prevention of vitamin D deficiency: an Endocrine Society clinical practice guideline. JCEM. 2010; 96(7):1911-30. PDF Report Reviewed date:01/16/2025 07:45:20 AM Interpretation: Performing Lab:[facility], [address], [place], Phone - [phone], Director - Teresa Notes/Report: Reason For Referral No Information Medications Medication SIG (Take, Route, Frequency, Duration) Notes Start Date End Date Status Estradiol Vaginal Cream 0.01% 1 Gram to the affected area Vaginal/Vulva Twice a week for 90 Days 12/21/2024 Active Dorzolamide HCl 2 % 1 drop into affected eye Ophthalmic Three times a day Active Valsartan 80 MG 1 tablet Orally Once a day Active Co Q-10 100MG 1 ORAL daily for -3 [facility] 07/07/2012 Active Vitamin B Complex-C - Orally Active Aspir-81 Active Lumigan 0.01 % 1 drop into affected eye in the evening Ophthalmic Once a day Active Yuvafem 10 MCG 1 tablet Vaginal TWICE A WEEK for 90 days 12/03/2021 Active Magnesium 300 MG 1 capsule with a alison l Orally Once a day Active Flovent HFA 110 MCG/ACT 1 puff Inhalation Twice a day Active [place] Extract 500 MG Orally Active Montelukast Sodium 10 MG 1 tablet in the evening Orally Once a day Active Colostrum 500 MG Orally Act luz elena Nattokinase 50 MG as directed Orally Active Vitamin C 500 MG as directed Orally Active Quercetin Complex Immune - as directed Orally Active Curcumin 95 500 MG Orally A ctive Coreg 12.5 MG 1 tablet with food Orally Twice a day Active ProAir HFA 90MCG 2 Inhalation four times daily for -3 [facility] 08/16/2013 Active Calcium 1 tab Oral for 14 days With Vitamin K Active Vitamin D3 5000 IU ORAL daily for -3 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) Active confirmed Problem Abnormal findings on diagnostic imaging of breast (221016644) Other abnormal and inconclusive findings on diagnostic imaging of breast (R92.8) Active confirmed Problem Benign essential hypertension (6088764) Essential hypertension, benign (401.1) Active confirmed Major Problem Asthma (disorder) (151114643) Asthma, unspecified, unspecified status (493.90) Active confirmed Major Problem Chronic airway obstruction (70207277) Chronic airway obstruction, not elsewhere classified (496) Active confirmed Major Problem Menopausal symptom (17929786) Symptomatic menopausal or female climacteric states (627.2) Active confirmed Major Problem Osteoarthritis (856750622) Osteoarthrosis, unspecified whether generalized or localized, unspecified site (715.90) Active confirmed Major Vital Signs Temperature 97.8 degrees Fahrenheit 12/21/2024 Blood pressure diastolic 86 mm Hg 12/21/2024 Height 63.50 in 12/21/2024 Blood pressure systolic 156 mm Hg 12/21/2024 Weight 141 lbs 12/21/2024 BMI 24.58 kg/m2 12/21/2024 Encounters Encounter Location Date Provider Diagnosis [facility] [address] [address] 12/21/2024 Naty Polanco Encounter for gynecological examination (general) (routine) without abnormal findings Z01.419 ; Encounter for screening mammogram for malignant neoplasm of breast Z12.31 ; Age-related osteoporosis without current pathological fracture M81.0 ; Hypervitaminosis D E67.3 ; Postmenopausal atrophic vaginitis N95.2 and Dense breasts, unspecified R92.30 Total [facility] [address] [place] [address] 05/05/2024 Naty Polanco Postmenopausal atrop hic vaginitis N95.2 Assessments Encounter Date Diagnosis (ICD Code) Assessment Notes Treatment Notes Treatment Clinical Notes Section Notes 05/05/2024 Postmenopausal atrophic vaginitis (ICD-10 - N95.2) 12/21/2024 Encounter for gynecological examination (general) (routine) [...] 3D MAMMOGRAMS WERE RECOMMENDED. Plan Of Treatment Pending Test Test Name Order Date MAMMOGRAM, SCREENING 11/22/2019 MAMMOGRAM, SCREENING 12/03/2021 MAMMOGRAM, SCREENING 12/16/2023 25OH VITAMIN D 12/10/2022 25OH VITAMIN D 12/10/2021 BONE DENSITY 12/16/2023 BONE DENSITY 11/22/2019 BONE DENSITY 12/10/2022 BONE DENSITY 11/27/2020 MM Digital Mammo Screening 12/03/2021 MM Digital Mammo Screening 11/27/2020 MM Digital Mammo Screening 12/10/2022 MM Digital Mammo Screening 12/16/2023 MM Digital Mammo Screening 12/21/2024 Next Appt Details Provider Name:Naty oliva, 12/31/2025 01:00:00 PM, [address], [address], [place], [address], Insurance Providers Payer Name Payer Address Payer Phone Subscriber Number Group Number Insured Name Patient Relationship to Insured Coverage Start Date Coverage End Date MEDICARE [address] [place] [id number] KYLIE KOCH Self - patient is the insured [employer] [address] [place] [address] [id number] KYLIE KOCH Self - patient is the insured Medical (General) History Medical History History ICD Code Unspecified osteoarthritis, unspecified site M19.90 Unspecified asthma, uncomplicated J45.90 9 Essential (primary) hypertension I10 Menopausal and female climacteric states N95.1 Other asthma J45.998 Postmenopausal atrophic vaginitis N95.2 Other abnormal and inconclusive findings on diagnostic imaging of breast R92.8 Inconclusive mammogram R92.2 Disorder of bone density and structure, unspecified M85.9 Hypervitaminosis D E67.3 Age-related osteoporosis without current pathological fracture M81.0 Dense breasts, unspecified R92.30 Mammographic heterogeneous density, bila teral breasts R92.333 Surgical History Surgery Date(Month/Year) Right Foot Bunionectomy Colonoscopy Tonsillectomy Powell Teeth Extraction Cataract Surgery 06/2021 & 07/2021 Hospitalization History Reason Date(Month/Year) See Surgical Hx 1 Vaginal Delivery
--- OUTSIDE RECORDS SUMMARY | 2025-02-13 14:22 | XMS_ITS ---
Author Organization Janay Hendricks MD Address [address] [place] [phone] Care Team Providers Care Research Environmental Scientist Name Role Phone Ade Saucedo Primary Care Provider [phone] REASON FOR VISIT patient concerns Encounters Encounter Location Date Provider Diagnosis Janay Hendricks MD [address] [place] [address] [place] [phone] 01/19/2025 Ade Saucedo Plan Of Treatment Next Appt Details Provider Name:Ade Saucedo , 06/20/2025 02:00:00 PM, [address] [place] [address], [phone], Provider Name:Ade Saucedo , 01/21/2026 01:30:00 PM, [address] [place] [address], [phone], Progress Notes * AUGUSTHope ROBLESeDOB: [birth year] (79 yo F)Acc No.[id number]:01/19/2025 Patient:?Stephanie KOCH :1945???Age:79 Y???Sex:Female [facility] [place], [address] * true * Date:? Generated for Printi barbi/Hugog/eTransmitting on:?02/13/2025 02:21 PM EDT
--- OUTSIDE RECORDS SUMMARY | 2025-02-13 14:22 | XMS_ITS ---
Author Organization Janay Hendricks MD Address [address] [place] [phone] Care Team Providers Care Critical Care Nurse Name Role Phone Ade Saucedo Primary Care Provider [phone] REASON FOR VISIT results Encounters Encounter Location Date Provider Diagnosis Janay Hendricks MD [address] [place] [address] [place] [address] [phone] 01/19/2025 Ade Saucedo Plan Of Treatment Next Appt Details Provider Name:Ade Saucedo , 06/20/2025 02:00:00 PM, [address] [place] [address], [phone], Provider Name:Ade Saucedo , 01/21/2026 01:30:00 PM, [address] [place] [address], [phone], Progress Notes * AUGUSTHope ROBLESeDOB: [birth year] (79 yo F)Acc No.[id number]:01/19/2025 Patient:?Stephanie KOCH :1945???Age:79 Y???Sex:Female Address:[address] [place] [address] [place], [address] * true * Date:? Generated for Printi ng/Famargieg/eTransmitting on:?02/13/2025 02:21 PM EDT
--- OUTSIDE RECORDS SUMMARY | 2025-02-13 14:23 | XMS_ITS ---
Author Organization [facility] Address [address] [facility] [facility] [address] [facility] [address] [place] [address] Care Team Providers Care Quality Assurance Supervisor Name Role Phone YULY KU MD Primary Care Provider Unavail able Naty Polanco Unavailable [phone] Allergies Allergen (clinical drug ingredient) Drug/Non Drug Allergy documented on EMR Reaction Allergy Type Onset Date Status PENICILLIN Hives Drug Allergy Active amoxicillin AMOXICILLIN Hives Drug Allergy Act luz elena acetaminophen / oxycodone PERCOCET GI Upset Drug Allergy Active REASON FOR VISIT LR MEDICARE PE, Annual FAMILY ADVOCATE Physical 60-85+ Medications Medication SIG (Take, Route, Frequency, Duration) Notes Start Date End Date Status Nattokinase 50 MG as directed Orally Active Quercetin Complex Immune - as directed Orally Active Flovent HFA 110 MCG/ACT 1 puff Inhalation Twice a day Active Montelukast Sodium 10 MG 1 tablet in the evening Orally Once a day Active Lumigan 0.01 % 1 drop into affected eye in the evening Ophthalmic Once a day Active Coreg 12.5 MG 1 tablet with food Orally Twice a day Active Calcium 1 tab Oral for 14 days With Vitamin K Active Colostrum 500 MG Orally Act luz elena Aspir-81 Active Valsartan 80 MG 1 tablet Orally Once a day Active ProAir HFA 90MCG 2 Inhalation four times daily for -3 [facility] 08/16/2013 Active Vitamin D3 5000 IU ORAL daily for -3 [facility] 08/16/2013 Active Vitamin C 500 MG as directed Orally Active Curcumin 95 500 MG Orally A ctive [place] Extract 500 MG Orally Active Dorzolamide HCl 2 % 1 drop into affected eye Ophthalmic Three times a day Active Co Q-10 100MG 1 ORAL daily for -3 [facility] 07/07/2012 Active Magnesium 300 MG 1 capsule with a alison l Orally Once a day Active Vitamin B Complex-C - Orally Active Yuvafem 10 MCG 1 tablet Vaginal TWICE A WEEK for 90 days 12/03/2021 Active Social History Tobacco Use: Social History Observation Description Date Details (start date - stop date) Never Smoker NA - NA Tobacco Use/Smoking Question Answer Notes Are you a nonsmoker Alcohol Screen (Audit-C) Question Answer Notes Did you have a drink contain ing alcohol in the past year? Yes How often did you have a dri nk containing alcohol in the past year? 2 to 3 times a week (3 points) How many drinks did you have on a typical day when you were drinking in the past year? 1 or 2 drinks (0 point) Points 3 Interpretation Positive Vital Signs Temperature 97.3 degrees Fahrenheit 12/16/19 24 Blood pressure systolic 140 mm Hg 12/16/19 24 Blood pressure diastolic 82 mm Hg 024 Height 63.50 in 12/16/2023 Weight 147 lbs 12/16/2023 BMI 25.63 kg/m2 12/16/2023 Encounters Encounter Location Date Provider Diagnosis [address] [id number] 12/16/2023 Naty Polanco Encounter for gynecological examination (general) (routine) without abnormal findings Z01.419 ; Encounter for screening mammogram for malignant neoplasm of breast Z12.31 ; Age-related osteoporosis without current pathological fracture M81.0 ; Postmenopausal atrophic vaginitis N95.2 and Dense breasts, unspecified R92.30 Assessments Encounter Date Diagnosis (ICD Code) Assessment Notes Treatment Notes Treatment Clinical Notes Section Notes 12/16/2023 Encounter for gynecological examination (general) (routine) without abnormal findings (ICD-10 - Z01.419) NO MORE PAP TESTS. 12/16/2023 Encounter for screening mammogram for malignant neoplasm of breast (ICD-10 - Z12.31) REGULAR MAMMOGRAMS AND SBE'S WERE RECOMMENDED. 12/16/2023 Age-related osteoporosis without current pathological fracture (ICD-10 - M81.0) DISCUSSED HER LAST BMD RESULTS, OSTEOPOROSIS AND ITS IMPACT ON HER HEALTH. DISCUSSED NEED FOR TX SPECIALLY SINCE SHE HAS HAD A HX OF FRACTURE. OFFERED TO ORDER BMD SOONER THAN SEP 2024 SINCE HER LAST BMD WAS IN AUG 2021. SHE IS BUSY CARING FOR HER AND WILL GET BMD DONE IF AND WHEN SHE HAS TIME. ADEQUATE CALCIUM AND VIT D. WEIGHT BEARING EXERCISES. OSTEO PRECAUTIONS. REPEAT BMD THIS YEAR. 12/16/2023 Postmenopausal atrophic vaginitis (ICD-10 - N95.2) CONTINUE YUVAFEM. 12/16/2023 Dense breasts, unspecified (ICD-10 - R92.30) DISCUSSED DENSE BREASTS ON MAMMOGRAM AND ITS IMPLICATIONS. 3D MAMMOGRAMS WERE RECOMMENDED. Plan Of Treatment Treatment Notes Assessment Notes Encounter for gynecological examination (general) (routine) without abnormal findings NO MORE PAP TESTS. Encounter for screening mamm ogram for malignant neoplasm of breast REGULAR MAMMOGRAMS AND SBE'S WERE RECOMMENDED. Age-related osteoporosis wit hout current pathological fracture DISCUSSED HER LAST BMD RESULTS, OSTEOPOROSIS AND ITS IMPACT ON HER HEALTH. DISCUSSED NEED FOR TX SPECIALLY SINCE SHE HAS HAD A HX OF FRACTURE. OFFERED TO ORDER BMD SOONER THAN SEP 2024 SINCE HER LAST BMD WAS IN AUG 2021. SHE IS BUSY CARING FOR HER AND WILL GET BMD DONE IF AND WHEN SHE HAS TIME. ADEQUATE CALCIUM AND VIT D. WEIGHT BEARING EXERCISES. OSTEO PRECAUTIONS. REPEAT BMD THIS YEAR. Postmenopausal atrophic vaginitis CONTIN UE YUVAFEM. Dense breasts, unspecified DISCUSSED DENSE BREASTS ON MAMMOGRAM AND ITS IMPLICATIONS. 3D MAMMOGRAMS WERE RECOMMENDED. Pending Test Test Name Order Date MAMMOGRAM, SCREENING 12/16/2023 BONE DENSITY 12/16/2023 MM Digital Mammo Screening 12/16/2023 Next Appt Details Follow Up: 1 Year, Reason: Provider Name:Naty oliva, 12/31/2025 01:00:00 PM, [address] [facility] [facility], [address], [place], [address], Progress Notes * CRYSTAL KOCHOB: [birth year] (78 yo F)Acc No.[id number]:12/16/2023 PROGRESS NOTES Patient:?KYLIE KOCH Appointment Provider:?Naty oliva M.D. :1945???Age:78 Y???Sex:Female D ate:12/16/2023 Address:[address] [place], [place] [id number] Pcp:YULY KU MD Subjective: * Chief Complaints: * ???LR MEDICARE PEAnnual FAMILY ADVOCATE Physical 60-85+ * HPI: ???New/Follow-up Patient Consult:? ELLIOTT ENTERED MENOPAUSE IN 2003. SHE USES YUVAFEM FOR ATROPHIC VAGINITIS AND IS DOING WELL. ?HER WAS DIAGNOSED TO HAVE STAGE 4 ESOPHAGEAL CA. SHE IS BEING BRAVE AND STRONG ABOUT THIS DIAGNOSIS AND TRYING TO DO HER BEST UNDER THE CIRCUMSTANCES. 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 SHE WAS LATER REFERRED TO A PROOF TESTER DUE TO TACHYCARDIA AND HAS BEEN GIVEN MEDICATIONS THAT HAVE HELPED DECREASE HER HEART RATE. SHE IS CONTINUING TO BE FOLLOWED. ?HER LAST MAMMOGRAM DONE IN SEP 2023 SHOWED DENSE BREASTS AND WAS NORMAL. HER LIFETIME BREAST CA RISK IS 5.9%. ?HER LAST PAP TEST IN 2017 WAS NEGATIVE AND HPV NEGATIVE. SHE HAS NO HX OF ABNORMAL PAP TESTS. ?HER LAST BMD IN 2020 SHOWED OSTEOPOROSIS WITH T-SCORE OF -2.9. OSTEO WORK UP SHOWED HIGH VIT D. SHE FELL AND FRACTURED HER LEFT LEG IN 2020. WE WILL REPEAT HER BMD THIS YEAR. SHE HAD REFUSED [place] OPTIONS. ?SHE HAD A COLONOSCOPY DONE IN 2021. ???Annual:? Patient presents for annual exam, ages 60-85, postmenopausal. ?General Health Maintenance:?Current breast complaints:?no breast pain, mass, discharge, or skin changes ?Urinary problems:?patient reports no urinary health problems or bowel health problems ?Calcium intake:?takes adequate calcium via diet and supplementation ?Significant FAMILY ADVOCATE problems:?no significant chief of safety and protection symptoms or problems * ROS:?general:?no?chest pain.?no?palpitations.?no?headache.?no?cough.?no?shortness of breath.?no?fever.?no?unexplained weight loss.?no?nausea/vomiting.?no?change in bowel movements.?no blood in stool.?no?genitourinary complaints.?no?skin complaints.? * Medical History:? * Director Stage History:?/ Para?10/18.?Last Pap Smear:?12/13/17 NEG HRHPV, 07/07/12, neg.?Mammogram:?09/21/23 50-75% density, 09/03/22 50-75% density, 09/02/21 50-75% density, 08/29/20 50-75% density, 08/22/19 50-75% density, 08/11/18 < 50% density, 08/09/2017 50-75% density, normal, 07/12/15, normal, 50-75% density.?LMP and menses?[place].? Control:?None.?Colonoscopy?12/2020. 2009.?Bone Density:?09/15/21, 04/15/17, 07/21/12.?FAMILY ADVOCATE HISTORY MISC.?11/08/15 DB counseling done. Renée risk is 5.9%. Supplemental screening not indicated.? * OB History:?Total pregnancies?G1, P1001. vaginal..? * Surgical History:?Right Foot Bunionectomy Colonoscopy Tonsillectomy [place] Teeth Extraction Cataract Surgery 06/2021 & 07/2021 * Hospitalization/Major Diagno stic Procedure:?1 Vaginal Delivery See Surgical Hx * Family History:?Mother: dece ased, Alzheimer.?Father: , coronary artery disease.?Paternal aunt: colon ca age 93.?Maternal uncle: colon ca or stomach ca.? * Social History:?Tobacco Use:?Tobacco Use/Smoking?Are you a?nonsmoker ???Drugs/Alcohol:?Drugs?Have you used drugs other than those for medical reasons in the past 12 months??No ?Alcohol Screen (Audit-C)?Did you have a drink containing alcohol in the past year??Yes ?How often did you have a drink containing alcohol in the past year??2 to 3 times a week (3 points) ?How many drinks did you have on a typical day when you were drinking in the past year??1 or 2 drinks (0 point) ?Points?3 ?Interpretation?Positive ???Miscellaneous:?Children: yes, 1. ?no Domestic violence. ?Exercise: yes, Cardio, walking. ?Living with: spouse. ?Marital status: . ?Natural support system: yes. ?Occupation: Retired. ?no Sexual abuse. ?Sexually active: monogamous relationship. ?no Verbal abuse. * Medications:?TakingAspir-81 Valsartan 80 MG Tablet 1 tablet Orally Once a dayCoreg 12.5 MG Tablet 1 tablet with food Orally Twice a dayCalcium 1 tab Oral , Notes: With Vitamin KNattokinase 50 MG Capsule as directed Orally Quercetin Complex Immune - Capsule as directed Orally Flovent HFA 110 MCG/ACT Aerosol 1 puff Inhalation Twice a dayMontelukast Sodium 10 MG Tablet 1 tablet in the evening Orally Once a dayLumigan 0.01 % Solution 1 drop into affected eye in the evening Ophthalmic Once a dayMagnesium 300 MG Capsule 1 capsule with a meal Orally Once a dayVitamin B Complex-C - Capsule Orally Yuvafem 10 MCG Tablet 1 tablet Vaginal TWICE A WEEKDorzolamide HCl 2 % Solution 1 drop into affected eye Ophthalmic Three times a dayCo Q-10 100MG 30 1 ORAL daily, Notes: John-MJProAir HFA 90MCG 1 2 Inhalation four times daily, Notes: John-MJVitamin D3 5000 IU 30 ORAL daily, Notes: John-MJVitamin C 500 MG Capsule as directed Orally Curcumin 95 500 MG Capsule Orally [place] Extract 500 MG Capsule Orally Colostrum 500 MG Capsule Orally Medication List reviewed and reconciled with the patientTaking Aspir-81 Taking Valsartan 80 MG Tablet 1 tablet Orally Once a dayTaking Coreg 12.5 MG Tablet 1 tablet with food Orally Twice a dayTaking Calcium 1 tab Oral , Notes: With Vitamin KTaking Nattokinase 50 MG Capsule as directed Orally Taking Quercetin Complex Immune - Capsule as directed Orally Taking Flovent HFA 110 MCG/ACT Aerosol 1 puff Inhalation Twice a dayTaking Montelukast Sodium 10 MG Tablet 1 tablet in the evening Orally Once a dayTaking Lumigan 0.01 % Solution 1 drop into affected eye in the evening Ophthalmic Once a dayTaking Magnesium 300 MG Capsule 1 capsule with a meal Orally Once a dayTaking Vitamin B Complex-C - Capsule Orally Taking Yuvafem 10 MCG Tablet 1 tablet Vaginal TWICE A WEEKTaking Dorzolamide HCl 2 % Solution 1 drop into affected eye Ophthalmic Three times a dayTaking Co Q-10 100MG 30 1 ORAL daily, Notes: John-MJTaking ProAir HFA 90MCG 1 2 Inhalation four times daily, Notes: John-MJTaking Vitamin D3 5000 IU 30 ORAL daily, Notes: John-MJTaking Vitamin C 500 MG Capsule as directed Orally Taking Curcumin 95 500 MG Capsule Orally Taking [place] Extract 500 MG Capsule Orally Taking Colostrum 500 MG Capsule Orally Medication List reviewed and reconciled with the patient * Allergies:?PENICILLIN: Hives - AllergyAMOXICILLIN: Hives - AllergyPERCOCET: GI Upset - Allergyno[Allergies Verified] Objective: * Vitals:?Ht: 63.50 in, Wt: 14 7 lbs, BMI:25.63 Index, BP: 140/82 mm Hg, Temp: 97.3 F. * Examination: ???General Exam: ?CONSTITUTIONAL:?General Appearance:?alert, in no acute distress, normal, well nourished ?NECK/THYROID:?Inspection/Palpation:?normal ?Thyroid:?normal size and shape ?RESPIRATORY:?Auscultation: clear to auscultation bilaterally, Respiratory Effort: normal.?CARDIOVASCULAR:?Auscultation: regular rate and rhythm.?BREAST, Right:?Inspection/Palpation:?no discharge, no masses present, no nipple retraction, no skin changes, no skin dimpling, no tenderness, no lymphadenopathy, no axillary mass, no axillary tenderness ?BREAST, Left:?Inspection/Palpation:?no discharge, no masses present, no nipple retraction, no skin changes, no skin dimpling, no tenderness, no lymphadenopathy, no axillary mass, no axillary tenderness ?GASTROINTESTINAL:?Abdomen:?no masses, nontender, nondistended ?Liver and Spleen:?normal ?Hernias:?no hernias present, no inguinal adenopathy ?MUSCULOSKELETAL:?Inspection/Palpation:?no clubbing, cyanosis, or edema ?SKIN:?Skin:?normal ?NEURO/PSYCH:?Orientation:?time , place, person ?Mood/Affect:?normal?Genitourinary: ?EXTERNAL GENITALIA:?External Genitalia:?normal, no lesions ?VAGINA:?Vagina:?atrophic vaginal tissue, minimal moisture ?BLADDER:?Bladder:?no mass, nontender ?URETHRA:?Urethra:?no erythema or lesions present ?CERVIX:?Cervix:?no lesions, nontender ?UTERUS:?Uterus:?nontender, normal contour, normal mobility, normal size ?ADNEXA:?Adnexa:?no masses, no tenderness ?ANUS AND PERINEUM:?Anus/Perineum:?visually normal??? Assessment: * Assessment: 1.?Encounter for gynecologic al examination (general) (routine) without abnormal findings - Z01.419?2.?Encounter for screening mammogram for malignant neoplasm of breast - Z12.31?3.?Age-related osteoporosis without current pathological fracture - M81.0?4.?Postmenopausal atrophic vaginitis - N95.2?5.?Dense breasts, unspecified - R92.30? Plan: * Treatment: 2.?Encounter for screening m ammogram for malignant neoplasm of breast?Imaging: MM Digital Mammo Screening Notes: REGULAR MAMMOGRAMS AND SBE'S WERE RECOMMENDED.?? 3.?Age-related osteoporosis without current pathological fracture?Imaging: BONE DENSITY Notes: DISCUSSED HER LAST BMD RESULTS, OSTEOPOROSIS AND ITS IMPACT ON HER HEALTH. DISCUSSED NEED FOR TX SPECIALLY SINCE SHE HAS HAD A HX OF FRACTURE. OFFERED TO ORDER BMD SOONER THAN SEP 2024 SINCE HER LAST BMD WAS IN AUG 2021. SHE IS BUSY CARING FOR HER AND WILL GET BMD DONE IF AND WHEN SHE HAS TIME. ADEQUATE CALCIUM AND VIT D. WEIGHT BEARING EXERCISES. OSTEO PRECAUTIONS. REPEAT BMD THIS YEAR.?? 4.?Postmenopausal atrophic v aginitis? Notes: CONTINUE YUVAFEM.?? 5.?Dense breasts, unspecifie d? Notes: DISCUSSED DENSE BREASTS ON MAMMOGRAM AND ITS IMPLICATIONS. 3D MAMMOGRAMS WERE RECOMMENDED.?? * Imaging:? * ?Imaging: MAMMOGRAM, SCR EENING * Procedure Codes:? * Preventive Medicine:? ??YOUR PREVENTIVE WELLNESS PLAN:?Osteoporosis prevention?Calcium, D, strength training.?Breast Cancer Screening (Mammogram):?annually.?Cervical Cancer Screening (Pap Smear):?q 3 years with HPV screen.?Colorectal Cancer Screening:?q 10 years.? * Follow Up:?1 Year * Images: Billing Information: * Visit Code:? [id number] Preventive Care Est Pt. Age 65 and over. * Procedure Codes:? * Sign off status: Completed true * Appointment Provider:?Naty Polanco M.D. Date:?12/16/2023 Generated for Shahzad landon/Donna/Marissaitting on:?02/13/2025 02:22 PM EDT History and Physical Notes * HPI (History of Present Illness) Category Sub-Category Detail Notes Category Not es New/Follow-up Patient Consult PAT ENTERED MENOPAUSE IN 2003. SHE USES YUVAFEM FOR ATROPHIC VAGINITIS AND IS DOING WELL. HER WAS DIAGNOSED TO HAVE STAGE 4 ESOPHAGEAL CA. SHE IS BEING BRAVE AND STRONG ABOUT THIS DIAGNOSIS AND TRYING TO DO HER BEST UNDER THE CIRCUMSTANCES. 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 SHE WAS LATER REFERRED TO A PROOF TESTER DUE TO TACHYCARDIA AND HAS BEEN GIVEN MEDICATIONS THAT HAVE HELPED DECREASE HER HEART RATE. SHE IS CONTINUING TO BE FOLLOWED. HER LAST MAMMOGRAM DONE IN SEP 2023 SHOWED DENSE BREASTS AND WAS NORMAL. HER LIFETIME BREAST CA RISK IS 5.9%. HER LAST PAP TEST IN 2017 WAS NEGATIVE AND HPV NEGATIVE. SHE HAS NO HX OF ABNORMAL PAP TESTS. HER LAST BMD IN 2020 SHOWED OSTEOPOROSIS WITH T-SCORE OF -2.9. OSTEO WORK UP SHOWED HIGH VIT D. SHE FELL AND FRACTURED HER LEFT LEG IN 2020. WE WILL REPEAT HER BMD THIS YEAR. SHE HAD REFUSED [place] OPTIONS. SHE HAD A COLONOSCOPY DONE IN 2021. Annual General Health Maintenance: Current breast complaints:: no breast pain, mass, discharge, or skin changes Urinary problems:: patient r eports no urinary health problems or bowel health problems Calcium intake:: takes adequ ate calcium via diet and supplementation Significant FAMILY ADVOCATE problems:: n o significant chief of safety and protection symptoms or problems Examination Category Sub-Category Detail Notes Category Not es General Exam CONSTITUTIONAL: General Appearan ce:: alert, in no acute distress, normal, well nourished NECK/THYROID: Thyroid:: normal size and shape Inspection/Palpation:: normal RESPIRATORY: Auscultation: clear to auscultation bilaterally, Respiratory Effort: normal CARDIOVASCULAR: Auscultation: regula r rate and rhythm GASTROINTESTINAL: Hernias:: no hernias present, no inguinal adenopathy Liver and Spleen:: normal Abdomen:: no masses, nontender, nondiste nded MUSCULOSKELETAL: Inspection/Palpation:: no clubb ing, cyanosis, or edema SKIN: Skin:: normal NEURO/PSYCH: Mood/Affect:: normal Orientation:: time , place, person BREAST, Right: Inspection/Palpation :: no discharge, no masses present, no nipple retraction, no skin changes, no skin dimpling, no tenderness, no lymphadenopathy, no axillary mass, no axillary tenderness BREAST, Left: Inspection/Palpation :: no discharge, no masses present, no nipple retraction, no skin changes, no skin dimpling, no tenderness, no lymphadenopathy, no axillary mass, no axillary tenderness Genitourinary EXTERNAL GENITALIA: External Genitalia:: nor mal, no lesions VAGINA: Vagina:: atrophic vaginal tissue , minimal moisture BLADDER: Bladder:: no mass, nontender URETHRA: Urethra:: no erythema or lesions present CERVIX: Cervix:: no lesions, nontender UTERUS: Uterus:: nontender, normal conto ur, normal mobility, normal size ADNEXA: Adnexa:: no masses, no tendernes s ANUS AND PERINEUM: Anus/Perineum:: visually norm al
== END 2025-02-13 12:58 | disposition home or self-care (01) ==
LOC: HO.HCS 12:26
PROVIDERS: PCP Internal Medicine; Visit Provider Internal Medicine Cardiovascular Disease
DX: I42.9 Cardiomyopathy, unspecified (principal); E78.5 Hyperlipidemia, unspecified
CPT/HCPCS: 93010; 99214; G2211

== ENCOUNTER → 2025-02-13 12:26 | Outpatient (BNVA) | payer MEDICARE, SELFPAY | PROVIDERS: PCP Internal Medicine; Visit Provider Internal Medicine Cardiovascular Disease | DX: I42.9 Cardiomyopathy, unspecified (principal); E78.5 Hyperlipidemia, unspecified | CPT/HCPCS: 93005; 99212 ==

== ENCOUNTER 2025-02-28 10:10 | Outpatient (REF) | payer MEDICARE, SELFPAY ==
[2025-02-28 11:41] LABS: Cholesterol 290 mg/dL (<200); HDL Cholesterol 93 mg/dL (>40); LDL Cholesterol Calculated 183 mg/dL (<100); Triglycerides 73 mg/dL (<150)
[2025-03-01 07:02] LABS: CRP High Sensitivity 0.8 mg/L
[2025-03-05 03:33] LABS: Apolipoprotein B 119 mg/dL (<90); Lipoprotein A 74 nmol/L (<75)
== END 2025-02-28 10:11 | disposition home or self-care (01) ==
LOC: HO.LAB 10:10
PROVIDERS: PCP Internal Medicine; Visit Provider Internal Medicine Cardiovascular Disease
DX: E78.5 Hyperlipidemia, unspecified (principal); I42.9 Cardiomyopathy, unspecified
CPT/HCPCS: 36415; 80061; 82172; 83695; 86141

== ENCOUNTER 2025-09-04 10:43 | Outpatient (AMB) | payer MEDICARE, SELFPAY ==
[2025-09-04 10:51] VITALS: BP 154/70; PULSE 66; O2SAT 99; BMI 27.5
--- NOTE | 2025-09-04 10:51 | MHC.OFFVIS ---
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 Overall she has been doing very well. Denies any significant shortness of breath. She continues use of Flovent. She does use 1 puff twice a day in appears to be effective. She has not had to use her rescue inhaler. In addition to that she does continue to use the singular 10 mg at nighttime. Denies any adverse effects from that. Unfortunately, she has been reluctant to get vaccinated for COVID-19. I did encourage her to do so specially with delta variant. I also recommended if she did come back positive at some point she can always call the office so we can set her up for monoclonal antibodies. But her best bet is to get vaccinated to avoid it altogether or decrease the severity of it. The patient will think about it for now. In regards of her PFTs she appears to have a reversible obstruction consistent with the asthma. In addition to that her last chest x-ray demonstrates some minimal atelectasis. Clinically she is doing well will hold off on any imaging studies. but if the patient develops any respiratory symptoms she is to call so we can have her undergo a chest x-ray. Otherwise will do 1 next year. 06/26/2022 the patient is here for a pulmonary follow-up visit. she continues to do well. She did tolerate going down to the 1 puff of the Flovent. Hoarseness got better. She is also using her allergy medicine. She denies any recent exacerbations or needing prednisone. She did not undergo her chest x-ray. Will plan to have her get an x-ray prior to the next visit. However, if she develops any worsening symptoms she is to get her chest x-ray earlier. Otherwise patient is without any other complaints. 06/29/2023 the patient is here for a pulmonary follow-up visit. The patient overall has been doing well for the last year. She continues on the Flovent inhaler. She did have 1 episode sometime in the winter where she was exposed to sick contacts and that up with a URI. She did increase her Flovent to the maximum dose and she did not need any prednisone or antibiotics. The patient improved in after that went back to her baseline. She will undergo a chest x-ray today. In addition to that on examination she was noted to be tachycardic. She does state that she has been tachycardic most of her life. Therefore we did request an EKG. It does demonstrate a sinus tachycardia with the rate of 110 beats per minute at rest. In addition to that she does have some conduction abnormalities. The patient may want to consider a cardiology referral further discussions with her primary care doctor. Otherwise respiratory exam is completely normal. 09/08/2024 the patient is here for a pulmonary follow-up visit. Overall from a respiratory status she is doing very good. We had to switch her from Flovent to Arnuity which she seems to be tolerating although it does bother her throat. She does rinse well. I did offer her a different inhaled corticosteroid but she is opting to stay in on the in order. We can also consider decreasing it to every other day. She also continues on the Singulair. She has had a very eventful year. She was diagnosed with nonischemic cardiomyopathy and her EF is 45%. She also lost her and also family members and she has had a very tough year. She had been admitted briefly to [facility] with abdominal pain. She was diagnosed with gallstone pancreatitis. Right now that is stable. She did have significant amount of weight due to that. No recent imaging to review. No recent pulmonary function study this time. She is doing fairly well also will follow-up in a year's time. If the patient develops any worsening issues she will call for an earlier assessment. 09/04/2025 the patient is here for pulmonary follow-up visit. Overall the patient is doing well. She continues on the Arnuity daily. She still gets irritation to the hard palate. Although she seems to be getting some relief from olive oil that she applies to the area. The patient also continues with Singulair. Has not had any issues. She is following up with Cardiology. She had a repeat echocardiogram demonstrating improvement in her ejection fraction which is reassuring. Overall the patient is doing well from that standpoint. The patient did have a chest x-ray back in 2022 demonstrating no acute disease. She continues to do well has not required any rescue medication. The patient is recommended to get the flu shot specially since we have H1N1 this year. She also is going to get the Tdap. She already got the pneumonia shot. Patient follow-up in a year's time if she has any issues prior to this she can always call for recommendations. [facility] Medical History Cardiomyopathy Tachycardia Atelectasis Chronic allergic rhinitis Asthma Surgical History Hx of knee surgery Family History Father CAD (coronary artery disease) Mother Stroke Social History Patient Tobacco Use Status: Never used Tobacco Review of Systems Const Denies night sweats ENT Denies change in voice, Denies lip swelling, Denies mouth pain, Reports nasal congestion, Reports nasal discharge and Denies tongue swelling Card Denies chest pain and Denies palpitations Resp Reports cough GI Denies abdominal pain Musc Denies no additional complaints Neuro Denies Neuro-related abnormal movements Psych Denies no additional complaints Endo Denies palpitations Vadim/Lymph Denies easy bleeding and Denies lymphadenopathy Aller/Immun Denies lip swelling and Denies tongue swelling Physical Exam Vital Signs: Last Vital Signs Pulse 66 09/04/25 10:51 BP 154/70 H 09/04/25 10:51 Pulse Ox 99 09/04/25 10:51 Oxygen Delivery Method Room Air 09/04/25 10:51 BMI result Body Mass Index 27.5 Const General: alert Neck Neck: Yes normal visual inspection, Yes full ROM and Yes no lymphadenopathy Chest Chest palpation & inspection: normal inspection of the chest Resp Effort & Inspection: normal respiratory effort Auscultation: no rhonchi, no wheezes and diminished lung sounds Cardio Rate: regular rate Rhythm: regular rhythm Heart sounds: S1 normal heart sound present and S2 normal heart sound present GI Palpation (GI): Soft to palpation and nontender Auscultation: normal bowel sounds Skin General skin exam: rashes and/or lesions noted Assessment & Plan Assessment & Plan (1) Asthma: Code(s): J45.909 - Unspecified asthma, uncomplicated Category: Medical Qualifiers: Asthma complication type: uncomplicated Asthma persistence: intermittent Asthma severity: mild Qualified Code(s): J45.20 - Mild intermittent asthma, uncomplicated (2) Chronic allergic rhinitis: Code(s): J30.9 - Allergic rhinitis, unspecified Category: Medical (3) Atelectasis: Code(s): J98.11 - Atelectasis Category: Medical (4) Cardiomyopathy: Code(s): I42.9 - Cardiomyopathy, unspecified Category: Medical Qualifiers: Cardiomyopathy type: unspecified Qualified Code(s): I42.9 - Cardiomyopathy, unspecified Plan continue Arnuity daily, if further irritation of her pallate she will call to change it YAKOV as needed continue singular follow-up in 1 year Coding Level of Care Code Est Pt Level 4 (65023) Complex EM visit Add On G2211 Diagnoses Mild intermittent asthma without complication J45.20 Asthma complication type: uncomplicated Asthma persistence: intermittent Asthma severity: mild Chronic allergic rhinitis J30.9 Atelectasis J98.11 Cardiomyopathy, unspecified type I42.9 Cardiomyopathy type: unspecified Time Spent (min) 16
== END 2025-09-04 11:47 | disposition home or self-care (01) ==
LOC: HO.HPS 10:43
PROVIDERS: PCP Internal Medicine; Visit Provider Hospitalist
DX: J45.20 Mild intermittent asthma, uncomplicated (principal); J30.9 Allergic rhinitis, unspecified; J98.11 Atelectasis; I42.9 Cardiomyopathy, unspecified
CPT/HCPCS: 99214; G2211

== ENCOUNTER → 2025-09-04 10:43 | Outpatient (BNVA) | payer MEDICARE, SELFPAY | PROVIDERS: PCP Internal Medicine; Visit Provider Hospitalist | DX: J45.20 Mild intermittent asthma, uncomplicated (principal); J30.9 Allergic rhinitis, unspecified; J98.11 Atelectasis; I42.9 Cardiomyopathy, unspecified | CPT/HCPCS: 99212 ==